=== PATIENT | female | born 1965 | race African-American/Black ===

== ENCOUNTER 2018-01-24 12:41 | Observation (INO) | payer MEDICARE, OTHER ==
[2018-01-24] MEDS ORDERED: ASPIRIN 81 MG PO STA (13:09)
[2018-01-24] MEDS ORDERED: NITROGLYCERIN OINT 1 INCH/GM PACKET TOPICAL STA (13:09)
[2018-01-24] MEDS ORDERED: KETOROLAC 30 MG/ML 1 ML VIAL IVP STA (13:09)
--- NOTE | 2018-01-24 13:20 | ED ---
Chest Pain HPI - General Chief Complaint: Chest Pain Stated Complaint: chest pain Time Seen by Provider: 01/24/18 12:54 Source: patient, EMS Mode of arrival: EMS Limitations: no limitations - History of Present Illness Initial Comments: This 52-year-old -[place] female presents with the complaints some chest pain. This is present to her left chest and radiates into her left neck and down her left arm. It started yesterday and is described as a pressure and is associated with some shortness of breath. She states that it is somewhat worse with deep inspiration and chest movements. She denies any history of previous pulmonary her Cardiologic problems. She's never had a stress test or heart catheterization. She denies any leg pain or swelling or history of DVT or PE. She does relate a history of fibromyalgia that some remission, depression that is improved, and arthritis. She is requesting something for pain. She denies any other complaints or modifying factors. - Related Data Home Medications Medication Instructions Recorded Confirmed Cholecalciferol [Vitamin D3] 1,000 unit PO DAILY 01/24/18 01/24/18 Cyanocobalamin (Vitamin B-12) 1,000 mcg PO DAILY 01/24/18 01/24/18 [Vitamin B-12] DULoxetine HCL [Cymbalta] 60 mg PO BID 01/24/18 01/24/18 FLUoxetine HCL [PROzac] 20 mg PO DAILY 01/24/18 01/24/18 Gabapentin [Neurontin] 300 mg PO QAM 01/24/18 01/24/18 Gabapentin [Neurontin] 600 mg PO HS 01/24/18 01/24/18 [place]-3 Fatty Acids/Fish Oil [Fish 1 cap PO DAILY 01/24/18 01/24/18 Oil 1,000 mg Softgel] Pyridoxine [Vitamin B-6] 50 mg PO DAILY 01/24/18 01/24/18 amLODIPine [Norvasc] 10 mg PO DAILY 01/24/18 01/24/18 risperiDONE [RisperDAL] 0.5 mg PO HS 01/24/18 01/24/18 traZODone HCL 300 mg PO HS 01/24/18 01/24/18 Allergies Allergy/AdvReac Type Severity Reaction Status Date / Time No Known Allergies Allergy Verified 01/24/18 14:00 Review of Systems ROS Statement: Those systems with pertinent positive or pertinent negative responses have been documented in the HPI. ROS Other: All systems not noted in ROS Statement are negative. Past Medical History Past Medical History: Fibromyalgia, Osteoarthritis (OA) Additional Past Medical History / Comment(s): degenerative disc disease History of Any Multi-Drug Resistant Organisms: None Reported Past Surgical History: Appendectomy, Hernia Repair, Hysterectomy Past Psychological History: Depression Smoking Status: Current every day smoker Past Alcohol Use History: None Reported Past Drug Use History: None Reported General Exam - General Exam Comments Initial Comments: GENERAL: The patient is well nourished and well hydrated. VITAL SIGNS: Heart rate, blood pressure, respiratory rate reviewed as recorded in nurse's notes. EYES: Pupils are round and reactive. Extraocular movements are intact. No conjunctival / lid redness or swelling. ENT: No external evidence of injury, swelling, or ecchymosis. Airway is patent. Throat is clear. NECK: Nontender. No swelling or evidence of injury. No subcutaneous emphysema. Trachea is midline. No thyroid mass. HEART: Regular rate and rhythm. Good peripheral pulses. LUNGS/CHEST: Breath sounds clear and equal bilaterally. No rales, rhonchi, or wheezes. No ecchymosis, subcutaneous emphysema, or tenderness. ABDOMEN: Abdomen soft without tenderness. No palpable masses or organomegaly. No peritoneal signs. No abdominal wall swelling or ecchymosis. EXTREMITIES: No extremity tenderness. Normal muscle tone and function. No thoracolumbar tenderness. NEUROLOGIC: Sensation is grossly intact. Cranial nerve exam reveals face is symmetrical, tongue is midline, speech is clear. SKIN: No abrasions or ecchymosis is noted. No induration or masses noted. PSYCHIATRIC: Alert and oriented. Appropriate behavior and judgment. Limitations: no limitations Course Vital Signs 01/24/18 01/24/18 01/24/18 12:52 13:15 13:33 Temperature 97.8 F Pulse Rate 80 77 Respiratory 20 18 20 Rate Blood Pressure 124/80 121/80 O2 Sat by Pulse 100 99 Oximetry Chest Pain MDM - MDM The patient was seen and examined. All diagnostics were reviewed. An EKG was done and this shows a normal sinus rhythm at a rate of 81. There is some slight T-wave inversions in V1 and V2. There is no ST elevation. The HI intervals 138, QRS duration is 92, and the QTC intervals 441. An aspirin is given as well as some Nitropaste. Toradol is ordered intravenously. She is placed on a title vehicle service attendant and is given some oxygen. IV is initiated. The laboratory was all essentially within normal limits. The chest x-ray did not show any acute process. She is in no distress on recheck. Is felt as though she would benefit from admission to the hospital to rule out the possibility of acute coronary syndrome. She is agreeable. Case is discussed with internal medicine and they are agreeable with admission. Disposition Clinical Impression: Unstable angina pectoris, Chest pain, Dyspnea Disposition: ADMITTED IP TO THIS HOSP Condition: Fair Time of Disposition: 15:14 Decision Date: 01/24/18 Decision Time: 15:14
--- NOTE | 2018-01-24 13:43 | XR ---
EXAMINATION TYPE: XR chest 2V DATE OF EXAM: 01/24/2018 COMPARISON: NONE TECHNIQUE: PA and lateral views submitted. HISTORY: Chest pain FINDINGS: The lungs are clear and there is no pneumothorax, pleural effusion, or focal pneumonia. Biapical pl eural thickening. No overt failure. IMPRESSION: 1. No acute process.
[2018-01-24] MEDS ORDERED: ONDANSETRON 4 MG/2 ML VIAL IVP STA (14:01)
[2018-01-24 14:09] LABS: Basophils # (A) 0.1 k/uL (0-0.2); Basophils % (A) 1 %; Eosinophils # (A) 0.1 k/uL (0-0.7); Eosinophils % (A) 2 %; HCT 39.4 % (34.0-46.0); HGB 12.7 gm/dL (11.4-16.0); Lymphocytes # (A) 2.4 k/uL (1.0-4.8); Lymphocytes % (A) 39 %; MCH 28.9 pg (25.0-35.0); MCHC 32.1 g/dL (31.0-37.0); MCV 90.2 fL (80.0-100.0); Mean Platelet Volume 7.6; Monocytes # (A) 0.3 k/uL (0-1.0); Monocytes % (A) 5 %; Neutrophils # (A) 3.2 k/uL (1.3-7.7); Neutrophils % (A) 52 %; Platelet Count 208 k/uL (150-450); RBC 4.37 m/uL (3.80-5.40); RDW 12.5 % (11.5-15.5); WBC 6.1 k/uL (3.8-10.6)
[2018-01-24 14:22] LABS: ALT 17 U/L (9-52); AST 21 U/L (14-36); Albumin 4.4 g/dL (3.5-5.0); Alkaline Phosphatase 81 U/L (38-126); Anion Gap 11 mmol/L; Blood Urea Nitrogen 13 mg/dL (7-17); Calcium 9.5 mg/dL (8.4-10.2); Carbon Dioxide 26 mmol/L (22-30); Chloride 104 mmol/L (98-107); Glucose 82 mg/dL (74-99); Magnesium 2.1 mg/dL (1.6-2.3); Potassium 4.4 mmol/L (3.5-5.1); Sodium 141 mmol/L (137-145); Total Bilirubin 0.3 mg/dL (0.2-1.3); Total Protein 7.5 g/dL (6.3-8.2)
[2018-01-24 14:25] LABS: D-Dimer 0.18 mg/L FEU (<0.60)
[2018-01-24 14:30] LABS: INR 1.1 (<1.2); Partial Thromboplastin Time 25.6 sec (22.0-30.0); Prothrombin Time 10.8 sec (9.0-12.0)
[2018-01-24 14:50] LABS: Creatine Kinase MB 0.4 ng/mL (0.0-2.4); Troponin I <0.012 ng/mL (0.000-0.034)
[2018-01-24 14:58] LABS: Creatine Kinase 94 U/L (30-135)
[2018-01-24] MEDS ORDERED: NITROGLYCERIN SL TABS 0.4 MG TAB SUBLINGUAL PRN (15:19)
[2018-01-24] MEDS: ACETAMINOPHEN TAB 325 MG TAB PO PRN (16:34)
--- NOTE | 2018-01-24 18:38 | ECHOF ---
Referral Reason:cp MEASUREMENTS -------- HEIGHT: 172.7 cm WEIGHT: 70.3 kg BP: 107/68 RVIDd: 2.3 cm (< 3.3) IVSd: 1.2 cm (0.6 - 1.1) LVIDd: 4.2 cm (3.9 - 5.3) LVPWd: 1.0 cm (0.6 - 1.1) IVSs: 1.5 cm LVIDs: 2.8 cm LVPWs: 1.4 cm LAESV Index (A-L): 18.64 ml/m Ao Diam: 2.4 cm (2.0 - 3.7) AV Cusp: 1.5 cm (1.5 - 2.6) LA Diam: 2.8 cm (2.7 - 3.8) EPSS: 0.8 cm MV E Zeb: 0.90 m/s MV DecT: 257 ms MV A Zeb: 0.78 m/s MV E/A Ratio: 1.16 RAP: 5.00 mmHg RVSP: 11.52 mmHg MV EF SLOPE: 118.69 mm/s (70 - 150) MV EXCURSION: 1.24 cm (> 18.000) FINDINGS -------- Sinus rhythm. This was a technically good study. The left ventricular size is normal. Left ventricular wall thickness is normal. Overall left vent ricular systolic function is normal with, an EF between 55 - 60 %. The right ventricle is normal in size and function. Normal LA size by volume 22+/-6 ml/m2. The right atrium is normal in size. The aortic valve is trileaflet, and appears structurally normal. No aortic stenosis or regurgitation. The mitral valve is normal. There is trace to mild mitral regurgitation. Trace tricuspid regurgitation present. Right ventricular systolic pressure is normal at < 35 mmHg. There is no evidence of pulmonary hypertension. Trace/mild (physiologic) pulmonic regurgitation. The aortic root size is normal. Normal inferior vena cava with normal inspiratory collapse consistent with estimated right atrial pre ssure of 5 mmHg. The pericardium is normal. There is no pericardial effusion. CONCLUSIONS -------- 1. Sinus rhythm. 2. This was a technically good study. 3. The left ventricular size is normal. 4. Left ventricular wall thickness is normal. 5. Overall left ventricular systolic function is normal with, an EF between 55 - 60 %. 6. Normal LA size by volume 22+/-6 ml/m2. 7. The aortic valve is trileaflet, and appears structurally normal. No aortic stenosis or regurgitati on. 8. There is trace to mild mitral regurgitation. 9. Trace tricuspid regurgitation present. 10. Right ventricular systolic pressure is normal at < 35 mmHg. 11. There is no evidence of pulmonary hypertension. 12. Trace/mild (physiologic) pulmonic regurgitation. 13. The aortic root size is normal. 14. There is no pericardial effusion. [employer]: Abraham Billy RDCS
[2018-01-24] MEDS ORDERED: ONDANSETRON 4 MG/2 ML VIAL IVP PRN (19:23)
[2018-01-24 20:16] LABS: Creatine Kinase 82 U/L (30-135)
[2018-01-24 20:29] LABS: Creatine Kinase MB 0.3 ng/mL (0.0-2.4); Troponin I <0.012 ng/mL (0.000-0.034)
[2018-01-24] MEDS: DULoxetine HCL 60 MG CAPSULE.DR PO SCH (20:45)
[2018-01-24] MEDS: METOPROLOL TARTRATE 25 MG TAB PO SCH (20:45)
[2018-01-24] MEDS ORDERED: traZODone HCL 100 MG TAB PO SCH (21:00)
[2018-01-24] MEDS ORDERED: risperiDONE 0.5 MG TAB PO SCH (21:00)
[2018-01-24] MEDS ORDERED: GABAPENTIN 300 MG CAP PO SCH (21:00)
[2018-01-24 23:26] LABS: Glucose,Whole Blood 98 mg/dL (75-99)
[2018-01-25 02:18] LABS: Cholesterol 238 mg/dL (<200); HDL Cholesterol 47 mg/dL (40-60); LDL Cholesterol,Calculated 180 mg/dL (0-99); Triglycerides 56 mg/dL (<150)
[2018-01-25 02:41] LABS: Creatine Kinase 71 U/L (30-135)
[2018-01-25 02:50] LABS: Creatine Kinase MB <0.2 ng/mL (0.0-2.4)
[2018-01-25 02:54] LABS: Troponin I <0.012 ng/mL (0.000-0.034)
[2018-01-25] MEDS ORDERED: REGADENOSON 0.4 MG/5 ML SYRINGE IV ONE (08:21)
[2018-01-25] MEDS ORDERED: AMINOPHYLLINE 500 MG/20 ML VIAL IV PRN (08:21)
[2018-01-25 08:54] VITALS: RESP 18
[2018-01-25] MEDS ORDERED: FLUoxetine HCL 20 MG CAP PO SCH (09:00)
[2018-01-25] MEDS ORDERED: ASPIRIN 325 MG TAB PO SCH (09:00)
[2018-01-25] MEDS ORDERED: amLODIPine 10 MG TAB PO SCH (09:00)
[2018-01-25] MEDS ORDERED: GABAPENTIN 300 MG CAP PO SCH (09:00)
[2018-01-25] MEDS ORDERED: NON-FORMULARY DRUG (Omega-3 Fatty Acids/Fish Oil [Fish Oil 1,000 Mg Softgel] 1 CAP) PO SCH (09:00)
[2018-01-25] MEDS ORDERED: CHOLECALCIFEROL 1,000 UNIT TAB PO SCH (09:00)
[2018-01-25] MEDS ORDERED: PYRIDOXINE 50 MG TAB PO SCH (09:00)
[2018-01-25] MEDS ORDERED: ENOXAPARIN 40 MG/0.4 ML SYRINGE SQ SCH (09:00)
[2018-01-25] MEDS ORDERED: CYANOCOBALAMIN 500 MCG TAB PO SCH (09:00)
[2018-01-25] MEDS ORDERED: ASPIRIN 81 MG PO SCH (09:00)
[2018-01-25] MEDS ORDERED: ATORVASTATIN 40 MG TAB PO SCH (09:45)
[2018-01-25] MEDS ORDERED: AMINOPHYLLINE 250 MG/10 ML VIAL IV ONE (10:10)
--- NOTE | 2018-01-25 10:32 | P.CRDCN ---
History of Present Illness Consult date: 01/25/18 Consult reason: chest pain History of present illness: Mrs. Sung is a pleasant 52-year-old female past medical history significant for hypertension, fibromyalgia and chronic tobacco use. She denies history of coronary artery disease and has never seen a showroom executive director for any reason. We have been asked to see her in consultation for complaints of chest pain. She states she has been trying to quit smoking over the previous month and every time she does smoke she gets a pain/tightness in her chest. The pains are typically mild and manageable and go away on their own with no specific alleviating factor and no associated symptoms. However, yesterday the pain was much more intense. It was located in the precordial region and radiated into her left shoulder and down into the left arm. The pain has been pretty constant since yesterday with no specific alleviating factors. Deep inspiration and coughing makes the pain worse. She has mild associated shortness of breath as well. Denies symptoms of dizziness, palpitations, nausea , vomiting or diaphoresis. EKG on arrival reveals sinus mechanism with nonspecific T-wave abnormality and incomplete right bundle branch block. There is no old for comparison. Telemetry tracings have been unremarkable. Chest x-ray is negative for an acute cardiopulmonary process. Echocardiogram performed yesterday reveals preserved left ventricular systolic function with ejection fraction 55-60%. Laboratory data reviewed, hemoglobin 12.7, platelets 208, d-dimer 0.18, sodium 141, potassium 4.4, magnesium 2.1, creatinine 0.8, cardiac enzymes negative 3, LDL 180, HDL 47, total cholesterol 238. Current cardiac medications include Norvasc 10 mg daily. Review of Systems At the time of my exam: CONSTITUTIONAL: Denies fever. Denies chills. EYES: Denies blurred vision. Denies vision changes. Denies eye pain. EARS, NOSE, MOUTH & THROAT: Denies headache. Denies sore throat. Denies ear pain. CARDIOVASCULAR: Complains of constant precordial chest pain. Denies shortness of breath. Denies orthopnea. Denies PND. Denies palpitations. RESPIRATORY: Denies cough. GASTROINTESTINAL: Denies abdominal pain. Denies diarrhea. Denies constipation. Denies nausea. Denies vomiting. MUSCULOSKELETAL: Denies myalgias. INTEGUMENTARY: Denies pruitis. Denies rash. NEUROLOGIC: Denies numbness. Denies tingling. Denies weakness. PSYCHIATRIC: Denies anxiety. Denies depression. ENDOCRINE: Denies fatigue. Denies weight change. Denies polydipsia. Denies polyurina. GENITOURINARY: Denies burning, hematuria or urgency with micturation. HEMATOLOGIC: Denies history of anemia. Denies bleeding. Past Medical History Past Medical History: Fibromyalgia, Hypertension, Osteoarthritis (OA) Additional Past Medical History / Comment(s): degenerative disc disease. "told years ago i have emphysema", kidney stone in past(passed it on her own),past hx uterine fibroids. History of Any Multi-Drug Resistant Organisms: None Reported Past Surgical History: Appendectomy, Hernia Repair, Hysterectomy Additional Past Surgical History / Comment(s): total hysterectomy, navel hernia repair Past Anesthesia/Blood Transfusion Reactions: No Reported Reaction Smoking Status: Current every day smoker - Past Family History Mother Family Medical History: Cancer Additional Family Medical History / Comment(s): cervical cancer Father Family Medical History: No Reported History Additional Family Medical History / Comment(s): "he was killed" Medications and Allergies Home Medications Medication Instructions Recorded Confirmed Type Cholecalciferol [Vitamin D3] 1,000 unit PO DAILY 01/24/18 01/24/18 History Cyanocobalamin (Vitamin B-12) 1,000 mcg PO DAILY 01/24/18 01/24/18 History [Vitamin B-12] DULoxetine HCL [Cymbalta] 60 mg PO BID 01/24/18 01/24/18 History FLUoxetine HCL [PROzac] 20 mg PO DAILY 01/24/18 01/24/18 History Gabapentin [Neurontin] 300 mg PO QAM 01/24/18 01/24/18 History Gabapentin [Neurontin] 600 mg PO HS 01/24/18 01/24/18 History [place]-3 Fatty Acids/Fish Oil [Fish 1 cap PO DAILY 01/24/18 01/24/18 History Oil 1,000 mg Softgel] Pyridoxine [Vitamin B-6] 50 mg PO DAILY 01/24/18 01/24/18 History amLODIPine [Norvasc] 10 mg PO DAILY 01/24/18 01/24/18 History risperiDONE [RisperDAL] 0.5 mg PO HS 01/24/18 01/24/18 History traZODone HCL 300 mg PO HS 01/24/18 01/24/18 History Allergies Allergy/AdvReac Type Severity Reaction Status Date / Time No Known Allergies Allergy Verified 01/24/18 14:00 Physical Exam Vitals: Vital Signs Temp Pulse Pulse Resp BP BP Pulse Ox 01/25/18 04:00 72 16 01/25/18 03:36 98.0 F 72 16 93/61 96 01/25/18 00:00 98.3 F 67 16 89/58 96 01/24/18 20:00 16 01/24/18 19:49 98.2 F 77 16 106/57 95 01/24/18 16:26 98.1 F 77 18 107/68 96 01/24/18 15:51 98.0 F 85 18 107/65 98 01/24/18 13:33 77 20 121/80 99 01/24/18 13:15 18 01/24/18 12:52 97.8 F 80 20 124/80 100 Intake and Output 01/24/18 01/25/18 01/25/18 22:59 06:59 14:59 Other: # Voids 1 Weight 71 kg Blood pressure 111/63 heart rate 59 afebrile maintaining oxygen saturation on room air GENERAL: This is a 52-year-old -[place] female in no apparent distress at the time of my examination. HEENT: Head is atraumatic, normocephalic. Pupils are equal, round. Sclerae anicteric. Conjunctivae are clear. Mucous membranes of the mouth are moist. Neck is supple. There is no jugular venous distention. No carotid bruit is heard. LUNGS: Clear to auscultation no wheezes, rales or rhonchi. No chest wall tenderness is noted on palpation or with deep breathing. HEART: Regular rate and rhythm without murmurs, rubs or gallops. S1 and S2 heard. ABDOMEN: Soft, nontender. Bowel sounds are heard. No organomegaly noted. EXTREMITIES: No evidence of peripheral edema and no calf tenderness noted. VASCULAR: Radial and dorsalis pedis pulses palpated, no evidence of clubbing. NEUROLOGIC: Patient is awake, alert and oriented x3. Results 01/24/18 13:55 01/24/18 13:55 Cardiac Enzymes 01/24/18 01/24/18 01/24/18 Range/Units 13:55 13:55 19:25 AST 21 (14-36) U/L CK-MB (CK-2) 0.4 0.3 (0.0-2.4) ng/mL Troponin I <0.012 <0.012 (0.000-0.034) ng/mL 01/25/18 Range/Units 01:41 AST (14-36) U/L CK-MB (CK-2) <0.2 (0.0-2.4) ng/mL Troponin I <0.012 (0.000-0.034) ng/mL Coagulation 01/24/18 Range/Units 13:55 PT 10.8 (9.0-12.0) sec APTT 25.6 (22.0-30.0) sec Lipids 01/25/18 Range/Units 01:41 Triglycerides 56 (<150) mg/dL Cholesterol 238 H (<200) mg/dL HDL Cholesterol 47 (40-60) mg/dL CBC 01/24/18 Range/Units 13:55 WBC 6.1 (3.8-10.6) k/uL RBC 4.37 (3.80-5.40) m/uL Hgb 12.7 (11.4-16.0) gm/dL Hct 39.4 (34.0-46.0) % Plt Count 208 (150-450) k/uL Comprehensive Metabolic Panel 01/24/18 Range/Units 13:55 Sodium 141 (137-145) mmol/L Potassium 4.4 (3.5-5.1) mmol/L Chloride 104 (98-107) mmol/L Carbon Dioxide 26 (22-30) mmol/L BUN 13 (7-17) mg/dL Creatinine 0.80 (0.52-1.04) mg/dL Glucose 82 (74-99) mg/dL Calcium 9.5 (8.4-10.2) mg/dL AST 21 (14-36) U/L ALT 17 (9-52) U/L Alkaline Phosphatase 81 (38-126) U/L Total Protein 7.5 (6.3-8.2) g/dL Albumin 4.4 (3.5-5.0) g/dL Current Medications Generic Name Dose Route Start Last Admin Trade Name Freq PRN Reason Stop Dose Admin Acetaminophen 650 mg 01/24/18 15:19 01/24/18 16:34 Tylenol Tab PO 650 mg Q4HR PRN Administration Pain Aminophylline 100 mg 01/25/18 08:21 Aminophylline IV 01/25/18 23:59 ONCE PRN Patient Response Aspirin 81 mg 01/25/18 09:00 Aspirin PO DAILY [facility] Cholecalciferol 1,000 unit 01/25/18 09:00 Vitamin D3 PO DAILY [facility] Cyanocobalamin 1,000 mcg 01/25/18 09:00 Vitamin B-12 PO DAILY [facility] Duloxetine HCl 60 mg 01/24/18 21:00 01/24/18 20:45 Cymbalta PO 60 mg BID RAFAEL Administration Enoxaparin Sodium 40 mg 01/25/18 09:00 Lovenox SQ DAILY [facility] Fluoxetine HCl 20 mg 01/25/18 09:00 Prozac PO DAILY [facility] Gabapentin 300 mg 01/25/18 09:00 Neurontin PO QAM [facility] Gabapentin 600 mg 01/24/18 21:00 01/24/18 20:45 Neurontin PO 600 mg HS [facility] Administration Metoprolol Tartrate 25 mg 01/24/18 21:00 01/24/18 20:45 Lopressor PO 25 mg BID [facility] Administration Nitroglycerin 0.4 mg 01/24/18 15:19 Nitrostat SUBLINGUAL Q5M PRN Chest Pain Ondansetron HCl 4 mg 01/24/18 19:23 01/24/18 20:43 Zofran IVP 4 mg Q6HR PRN Administration Nausea And Vomiting Pyridoxine HCl 50 mg 01/25/18 09:00 Vitamin B-6 PO DAILY [facility] Risperidone 0.5 mg 01/24/18 21:00 01/24/18 20:44 Risperdal PO 0.5 mg HS [facility] Administration Trazodone HCl 300 mg 01/24/18 21:00 01/24/18 20:44 Desyrel PO 300 mg HS [facility] Administration Intake and Output 01/24/18 01/25/18 01/25/18 22:59 06:59 14:59 Other: # Voids 1 Weight 71 kg 01/24/18 13:55 01/24/18 13:55 Assessment and Plan Assessment: ASSESSMENT 1. Chest pain, atypical. An acute coronary event has been ruled out with negative cardiac enzymes. 2. Hypertension 3. Dyslipidemia, new diagnosis 4. Chronic tobacco use PLAN 2D echocardiogram has been reviewed. Perform Lexiscan stress test to evaluate for reversible cardiac ischemia. Add small dose of aspirin and atorvastatin 40 mg daily to daily regimen. Smoking cessation has been recommended. Further recommendations based on diagnostic test findings. If stress test is negative she is stable from a cardiac perspective to follow-up with Dr. Goetz in 2-3 weeks. Thank you kindly for this consultation. Nurse Practitioner note has been reviewed, I agree with a documented findings and plan of care. Patient was seen and examined.
[2018-01-25] MEDS: METOPROLOL TARTRATE 25 MG TAB PO SCH (10:56)
[2018-01-25] MEDS: DULoxetine HCL 60 MG CAPSULE.DR PO SCH (10:56)
[2018-01-25] MEDS: ACETAMINOPHEN TAB 325 MG TAB PO PRN (10:59)
--- NOTE | 2018-01-25 11:22 | NM ---
EXAMINATION TYPE: NM stress lexiscan cardiolite DATE OF EXAM: 01/25/2018 COMPARISON: NONE HISTORY: Pain TECHNIQUE: After the intravenous administration of 10.3 mCi Tc 99m Sestamibi - Cardiolite resting SP ECT images acquired 45 minutes post injection. The patient received 0.4mg Lexiscan, 24 mCi Tc 99m Sestamibi - Stress images obtained 30 minutes post injection FINDINGS: Review of stress and rest SPECT images demonstrates no distinct perfusion abnormality. Gated analysi s shows normal wall motion with an estimated left ventricular ejection fraction of 55 %. IMPRESSION: No scintigraphic evidence for reversible ischemia.
[2018-01-25 11:55] VITALS: BP 104/63; PULSE 67; TEMP 97.8
--- NOTE | 2018-01-25 12:04 | EST ---
EXERCISE STRESS AGE: 52 SEX: F HT: 5'8" WT: 156 PROTOCOL: Lexiscan Cardiolite Stress Test HEART RATE REST: 65 BLOOD PRESSURE REST: 122/68 MAXIMUM HEART RATE ACHIEVED: 117 MAXIMUM BLOOD PRESSURE: 122/68 85% MPHR: 143 100% MPHR: 160 INDICATIONS: Chest pain. CLINICAL INFORMATION: Baseline EKG revealed normal sinus rhythm without significant ST-T changes. With Lexiscan administration, patient had some uncomfortable feeling, nausea and required aminophylline. EKG did not reveal any ST-segment change. Heart rate changed from 65 to 117 beats per minute. Blood pressure changed from 122/68 to 102/74, and came back to baseline. By EKG criteria this is an unremarkable Lexiscan stress test. The nuclear scan results which are more pertinent, will be reported by the radiologist. [place] / [place]: [id number] /
--- NOTE | 2018-01-25 14:40 | P.HPIM ---
History of Present Illness H&P Date: 01/25/18 Chief Complaint: Chest pain This is a 52-year-old female with a known past medical history of 5 myalgia, osteoarthritis, degenerative disc disease, depression and nicotine dependence. She presents to the emergency room with complaints of chest pain on the left side of her chest and left arm with shortness of breath. She's had symptoms for a few days. Troponins were negative 3 sets d-dimer 0.18, EKG normal sinus rhythm with incomplete right bundle branch block and nonspecific T-wave abnormality. Chest x-rays negative. Echo shows an EF of 55-60%. Cholesterol 238 and LDL 180. Patient seen evaluated by cardiology. Patient underwent stress test this morning which was negative. Cardiology has cleared her for discharge. He'll follow-up with her in the office in 2 weeks. They have added aspirin and Lipitor to her regimen. Patient is still complaining of chest discomfort reporting it as muscle skeletal pain and requesting Flexeril. This will be given to her at discharge. Also patient is been informed that if she continues to have chest pain she may benefit from having heart catheterization. Patient will be following up with cardiology in 2 weeks Review of Systems Please refer to HPI otherwise unremarkable Past Medical History Past Medical History: Fibromyalgia, Hypertension, Osteoarthritis (OA) Additional Past Medical History / Comment(s): degenerative disc disease. "told years ago i have emphysema", kidney stone in past(passed it on her own),past hx uterine fibroids. History of Any Multi-Drug Resistant Organisms: None Reported Past Surgical History: Appendectomy, Hernia Repair, Hysterectomy Additional Past Surgical History / Comment(s): total hysterectomy, navel hernia repair Past Anesthesia/Blood Transfusion Reactions: No Reported Reaction Smoking Status: Current every day smoker - Past Family History Mother Family Medical History: Cancer Additional Family Medical History / Comment(s): cervical cancer Father Family Medical History: No Reported History Additional Family Medical History / Comment(s): "he was killed" Medications and Allergies Home Medications Medication Instructions Recorded Confirmed Type Cholecalciferol [Vitamin D3] 1,000 unit PO DAILY 01/24/18 01/24/18 History Cyanocobalamin (Vitamin B-12) 1,000 mcg PO DAILY 01/24/18 01/24/18 History [Vitamin B-12] DULoxetine HCL [Cymbalta] 60 mg PO BID 01/24/18 01/24/18 History FLUoxetine HCL [PROzac] 20 mg PO DAILY 01/24/18 01/24/18 History Gabapentin [Neurontin] 300 mg PO QAM 01/24/18 01/24/18 History Gabapentin [Neurontin] 600 mg PO HS 01/24/18 01/24/18 History [place]-3 Fatty Acids/Fish Oil [Fish 1 cap PO DAILY 01/24/18 01/24/18 History Oil 1,000 mg Softgel] Pyridoxine [Vitamin B-6] 50 mg PO DAILY 01/24/18 01/24/18 History amLODIPine [Norvasc] 10 mg PO DAILY 01/24/18 01/24/18 History risperiDONE [RisperDAL] 0.5 mg PO HS 01/24/18 01/24/18 History traZODone HCL 300 mg PO HS 01/24/18 01/24/18 History Allergies Allergy/AdvReac Type Severity Reaction Status Date / Time No Known Allergies Allergy Verified 01/24/18 14:00 Physical Exam Vitals: Vital Signs Temp Pulse Pulse Resp BP BP Pulse Ox 01/25/18 11:53 97.8 F 67 18 104/63 95 01/25/18 08:00 98.5 F 59 L 18 111/63 100 01/25/18 04:00 72 16 01/25/18 03:36 98.0 F 72 16 93/61 96 01/25/18 00:00 98.3 F 67 16 89/58 96 01/24/18 20:00 16 01/24/18 19:49 98.2 F 77 16 106/57 95 01/24/18 16:26 98.1 F 77 18 107/68 96 01/24/18 15:51 98.0 F 85 18 107/65 98 Intake and Output 01/24/18 01/25/18 01/25/18 22:59 06:59 14:59 Intake Total 420 Balance 420 Intake: Oral 420 Other: # Voids 1 Weight 71 kg Head normocephalic Neck supple Lungs clear to auscultation bilaterally no wheezing or crackles Heart regular rate and rhythm S1-S2, no rub or gallop Abdomen is soft nontender nondistended positive bowel sounds no hepatosplenomegaly Extremities no edema Neuro alert and orientated to 3 Results CBC & Chem 7: 01/24/18 13:55 01/24/18 13:55 Labs: Abnormal Lab Results - Last 24 Hours (Table) 01/25/18 Range/Units 01:41 Cholesterol 238 H (<200) mg/dL LDL Cholesterol, Calc 180 H (0-99) mg/dL Thrombosis Risk Factor Assmnt - Choose All That Apply Any of the Below Risk Factors Present?: Yes Each Factor Represents 1 point: Age 41-60 years Other Risk Factors: No Other congenital or acquired thrombophilia - If yes, enter type in comment: No Thrombosis Risk Factor Assessment Total Risk Factor Score: 1 Thrombosis Risk Factor Assessment Level: Low Risk Assessment and Plan Assessment: 1. Chest pain: Atypical. Cardiac enzymes are negative 3. Acute coronary event has been ruled out. EKG normal sinus rhythm with incomplete right bundle branch block. Chest x-ray negative. D-dimer within normal range. Echo shows an EF of 55-60%. Stress test negative. Patient cleared to cardiology for discharge. Patient's chest pain may be musculoskeletal. Flexeril be added 2. Dyslipidemia, new diagnosis: Cardiology has plus patient on Lipitor 3. Nicotine dependence discussed importance of smoking cessation 4. Essential hypertension: Patient has had lower blood pressures. Norvasc discontinued during this admission 5. Fibromyalgia 6. History of degenerative disc disease Time with Patient: Greater than 30 (Time.I performed an examination of the patient and discussed their management with the physician Manager Estate. I have reviewed the Physician Manager Estate's notes and agree with the documented findings and plan of care)
--- NOTE | 2018-01-25 14:52 | P.DS ---
Providers Date of admission: 01/24/18 15:19 Expected date of discharge: 01/25/18 Attending physician: Mook Sheth Consults: 01/24/18 15:19 Consult Physician Urgent Consulting Provider: Wendy Worthington Consult Reason/Comments: cp Do you want consulting provider notified?: Yes [facility] Course: Discharge diagnosis 1. Chest pain: Atypical. Cardiac enzymes are negative 3. Acute coronary event has been ruled out. EKG normal sinus rhythm with incomplete right bundle branch block. Chest x-ray negative. D-dimer within normal range. Echo shows an EF of 55-60%. Stress test negative. Patient cleared to cardiology for discharge. Patient's chest pain may be musculoskeletal. Flexeril be added 2. Dyslipidemia, new diagnosis: Cardiology has plus patient on Lipitor 3. Nicotine dependence discussed importance of smoking cessation 4. Essential hypertension: Patient has had lower blood pressures. Discontinue the metoprolol that started in the ER. Patient can continue her Norvasc 5. Fibromyalgia 6. History of degenerative disc disease Hospital course This is a 52-year-old female with a known past medical history of 5 myalgia, osteoarthritis, degenerative disc disease, depression and nicotine dependence. She presents to the emergency room with complaints of chest pain on the left side of her chest and left arm with shortness of breath. She's had symptoms for a few days. Troponins were negative 3 sets d-dimer 0.18, EKG normal sinus rhythm with incomplete right bundle branch block and nonspecific T-wave abnormality. Chest x-rays negative. Echo shows an EF of 55-60%. Cholesterol 238 and LDL 180. Patient seen evaluated by cardiology. Patient underwent stress test this morning which was negative. Cardiology has cleared her for discharge. He'll follow-up with her in the office in 2 weeks. They have added aspirin and Lipitor to her regimen. Patient is still complaining of chest discomfort reporting it as muscle skeletal pain and requesting Flexeril. This will be given to her at discharge. Also patient is been informed that if she continues to have chest pain she may benefit from having heart catheterization. Patient will be following up with cardiology in 2 weeks. Follow-up with PCP in 1 week. Also note the patient had some hypotension during this admission. She was started on a beta raghavendra in the emergency room. The beta raghavendra will be discontinued. We will continue with her home dose of Norvasc. This was discussed with cardiology nurse practitioner to Dulce Maria Patient has been cleared by cardiology for discharge. She is medically stable for discharge. I performed an examination of the patient and discussed their management with the physician Gastroenterology Professor. I have reviewed the Physician Gastroenterology Professor's notes and agree with the documented findings and plan of care Patient Condition at Discharge: Stable Plan - Discharge Summary Discharge Rx Participant: Yes New Discharge Prescriptions: New Aspirin 81 mg PO DAILY #30 tab Atorvastatin [Lipitor] 40 mg PO DAILY #30 tab Cyclobenzaprine [Flexeril] 10 mg PO BID PRN #14 tab PRN Reason: Muscle Spasm Continue risperiDONE [RisperDAL] 0.5 mg PO HS [place]-3 Fatty Acids/Fish Oil [Fish Oil 1,000 mg Softgel] 1 cap PO DAILY Cholecalciferol [Vitamin D3] 1,000 unit PO DAILY Pyridoxine [Vitamin B-6] 50 mg PO DAILY Gabapentin [Neurontin] 300 mg PO QAM Gabapentin [Neurontin] 600 mg PO HS DULoxetine HCL [Cymbalta] 60 mg PO BID Cyanocobalamin (Vitamin B-12) [Vitamin B-12] 1,000 mcg PO DAILY amLODIPine [Norvasc] 10 mg PO DAILY FLUoxetine HCL [PROzac] 20 mg PO DAILY traZODone HCL 300 mg PO HS Discharge Medication List Cholecalciferol [Vitamin D3] 1,000 unit PO DAILY 01/24/18 [History] Cyanocobalamin (Vitamin B-12) [Vitamin B-12] 1,000 mcg PO DAILY 01/24/18 [ History] DULoxetine HCL [Cymbalta] 60 mg PO BID 01/24/18 [History] FLUoxetine HCL [PROzac] 20 mg PO DAILY 01/24/18 [History] Gabapentin [Neurontin] 300 mg PO QAM 01/24/18 [History] Gabapentin [Neurontin] 600 mg PO HS 01/24/18 [History] [place]-3 Fatty Acids/Fish Oil [Fish Oil 1,000 mg Softgel] 1 cap PO DAILY [History] Pyridoxine [Vitamin B-6] 50 mg PO DAILY 01/24/18 [History] amLODIPine [Norvasc] 10 mg PO DAILY 01/24/18 [History] risperiDONE [RisperDAL] 0.5 mg PO HS 01/24/18 [History] traZODone HCL 300 mg PO HS 01/24/18 [History] Aspirin 81 mg PO DAILY #30 tab 01/25/18 [Rx] Atorvastatin [Lipitor] 40 mg PO DAILY #30 tab 01/25/18 [Rx] Cyclobenzaprine [Flexeril] 10 mg PO BID PRN #14 tab 01/25/18 [Rx] Follow up Appointment(s)/Referral(s): Ofe Goetz MD [STAFF PHYSICIAN] - 2 Weeks Calista Gil MD [Primary Care Provider] - 1 Week Activity/Diet/Wound Care/Special Instructions: Diet: cardiac Activity: as tolerated Discharge Disposition: HOME SELF-CARE
== END 2018-01-25 15:55 | disposition home or self-care (01) ==
LOC: EC 12:41 → 3OBS 15:19
PROVIDERS: ADMIT Internal Medicine; ATTEND Internal Medicine
DX: R07.89 Other chest pain (principal); E78.5 Hyperlipidemia, unspecified; I10 Essential (primary) hypertension; I45.10 Unspecified right bundle-branch block; M79.7 Fibromyalgia; M19.90 Unspecified osteoarthritis, unspecified site; F32.9 Major depressive disorder, single episode, unspecified; F17.200 Nicotine dependence, unspecified, uncomplicated; Z79.899 Other long term (current) drug therapy; Z80.49 Family history of malignant neoplasm of other genital organs
CPT/HCPCS: 99285 ×2; 96374 ×2; 96375 ×2; 96372; 96376; 36415; 93005; 93017; 93306; 85379; 83880; 80061; 80053; 82550 ×2; 82553 ×2; 83735; 84484 ×2; 85025; 85610; 85730; 71046; 78452; G0378 ×2; A9500; J2405; J1650; J1885; J2785; J0280

== ENCOUNTER 2019-04-07 00:06 | Emergency (ER) | payer MEDICARE, OTHER ==
[2019-04-07] MEDS ORDERED: SODIUM CHLORIDE 0.9% 1,000 ML IV ONE (00:27)
[2019-04-07 00:44] LABS: Basophils # (A) 0.1 k/uL (0-0.2); Basophils % (A) 1 %; Eosinophils # (A) 0.2 k/uL (0-0.7); Eosinophils % (A) 3 %; HCT 40.1 % (34.0-46.0); HGB 13.3 gm/dL (11.4-16.0); Lymphocytes # (A) 3.2 k/uL (1.0-4.8); Lymphocytes % (A) 44 %; MCH 30.3 pg (25.0-35.0); MCHC 33.1 g/dL (31.0-37.0); MCV 91.5 fL (80.0-100.0); Mean Platelet Volume 7.2; Monocytes # (A) 0.3 k/uL (0-1.0); Monocytes % (A) 4 %; Neutrophils # (A) 3.4 k/uL (1.3-7.7); Neutrophils % (A) 47 %; Platelet Count 222 k/uL (150-450); RBC 4.38 m/uL (3.80-5.40); RDW 14.3 % (11.5-15.5); WBC 7.3 k/uL (3.8-10.6)
[2019-04-07 00:55] LABS: Appearance,Urine Clear (Clear); Bilirubin,Urine Negative (Negative); Blood,Urine Negative (Negative); Color,Urine Yellow; Glucose,Urine (UA) Negative (Negative); Ketones,Urine Negative (Negative); Leukocyte Esterase,Urine Trace (Negative); Mucus,Urine Occasional /hpf; Nitrite,Urine Negative (Negative); Protein,Urine Negative (Negative); RBC,Urine 1 /hpf (0-5); Specific Gravity,Urine 1.013 (1.001-1.035); Squamous Epithelial Cell,Urine 3 /hpf (0-4); Urobilinogen,Urine <2.0 mg/dL (<2.0)
[2019-04-07 00:57] LABS: Albumin 4.4 g/dL (3.5-5.0); Calcium 9.6 mg/dL (8.4-10.2); Potassium 3.9 mmol/L (3.5-5.1); Total Bilirubin 0.2 mg/dL (0.2-1.3); Total Protein 7.2 g/dL (6.3-8.2)
--- NOTE | 2019-04-07 02:00 | XR ---
EXAM: XR Chest, 2 Views CLINICAL HISTORY: Cough, fever. TECHNIQUE: Frontal and lateral views of the chest. COMPARISON: CXR dated 01/24/2018. FINDINGS: Lungs: No focal consolidation. No evidence of pulmonary edema. Pleural space: No pleural effusion. No pneumothorax. Heart: Unremarkable. No cardiomegaly. Mediastinum: Unremarkable. Bones/joints: Minimal curvature of spine. Osseous structures otherwise unremarkable. IMPRESSION: No radiographic evidence of acute chest abnormality.
--- NOTE | 2019-04-07 02:09 | ED ---
General Adult HPI - General Chief complaint: Dizziness Stated complaint: Dizziness, nausea Time Seen by Provider: 04/07/19 00:27 Source: patient Mode of arrival: ambulatory Limitations: no limitations - History of Present Illness Initial comments: Janae is a 53-year-old female who presents to the emergency department today for evaluation of generalized malaise. Patient reports that she was diagnosed with pneumonia a couple of weeks ago and was given steroids and medications however she was worried that they would interact with her psychotropic medi cations so she didn't take the steroids and took the antibiotics probably 3 days. Patient reports that she felt better for a while but over the past few days she's been feeling fatigued. She says she feels somewhat dizzy at times somewhat lightheaded. She denies any specific pain, chest pain cough or shortness of breath. Patient does report subjective fevers, generalized malaise, decreased appetite. -: week(s) - Related Data Home Medications Medication Instructions Recorded Confirmed Cholecalciferol [Vitamin D3 (25 1,000 unit PO DAILY 01/24/18 01/24/18 Mcg = 1000 Iu)] Cyanocobalamin (Vitamin B-12) 1,000 mcg PO DAILY 01/24/18 01/24/18 [Vitamin B-12] DULoxetine HCL [Cymbalta] 60 mg PO BID 01/24/18 01/24/18 FLUoxetine HCL [PROzac] 20 mg PO DAILY 01/24/18 01/24/18 Gabapentin [Neurontin] 300 mg PO QAM 01/24/18 01/24/18 Gabapentin [Neurontin] 600 mg PO HS 01/24/18 01/24/18 [place]-3 Fatty Acids/Fish Oil [Fish 1 cap PO DAILY 01/24/18 01/24/18 Oil 1,000 mg Softgel] Pyridoxine [Vitamin B-6] 50 mg PO DAILY 01/24/18 01/24/18 amLODIPine [Norvasc] 10 mg PO DAILY 01/24/18 01/24/18 risperiDONE [RisperDAL] 0.5 mg PO HS 01/24/18 01/24/18 traZODone HCL 300 mg PO HS 01/24/18 01/24/18 Previous Rx's Medication Instructions Recorded Aspirin 81 mg PO DAILY #30 tab 01/25/18 Atorvastatin [Lipitor] 40 mg PO DAILY #30 tab 01/25/18 Cyclobenzaprine [Flexeril] 10 mg PO BID PRN #14 tab 01/25/18 Allergies Allergy/AdvReac Type Severity Reaction Status Date / Time No Known Allergies Allergy Verified 04/07/19 00:17 Review of Systems ROS Statement: Those systems with pertinent positive or pertinent negative responses have been documented in the HPI. ROS Other: All systems not noted in ROS Statement are negative. Constitutional: Reports: fever (subjective) ENT: Denies: ear pain, throat pain Respiratory: Denies: cough, dyspnea, wheezes, hemoptysis Cardiovascular: Denies: chest pain, dyspnea on exertion Endocrine: Reports: fatigue Gastrointestinal: Denies: abdominal pain, diarrhea Genitourinary: Denies: urgency, dysuria Musculoskeletal: Denies: back pain Skin: Denies: rash Neurological: Reports: headache, weakness (generalized). Denies: abnormal gait Psychiatric: Reports: anxiety, depression Past Medical History Past Medical History: Fibromyalgia, Hypertension, Osteoarthritis (OA) Additional Past Medical History / Comment(s): degenerative disc disease. "told years ago i have emphysema", kidney stone in past(passed it on her own),past hx uterine fibroids. History of Any Multi-Drug Resistant Organisms: None Reported Past Surgical History: Appendectomy, Hernia Repair, Hysterectomy Additional Past Surgical History / Comment(s): total hysterectomy, navel hernia repair Past Anesthesia/Blood Transfusion Reactions: No Reported Reaction Past Psychological History: Depression Smoking Status: Current every day smoker Past Alcohol Use History: None Reported Past Drug Use History: None Reported - Past Family History Mother Family Medical History: Cancer Additional Family Medical History / Comment(s): cervical cancer Father Family Medical History: No Reported History Additional Family Medical History / Comment(s): "he was killed" General Exam - General Exam Comments Initial Comments: Physical Exam GENERAL: Patient is well-developed and well-nourished. Patient is nontoxic and well- hydrated and is in no distress. HENT: Normocephalic, Atraumatic. EYES: PERRL, EOMI PULMONARY: Unlabored respirations. No audible rales rhonchi or wheezing was noted. CARDIOVASCULAR: There is a regular rate and rhythm without any murmurs gallops or rubs. ABDOMEN: Soft and nontender with normal bowel sounds. SKIN: Skin is clear with no lesions or rashes and otherwise unremarkable. : Deferred NEUROLOGIC: Patient is alert and oriented x3. Moving all extremities spontaneously MUSCULOSKELETAL: Normal extremities with adequate strength and full range of motion. No lower extremity swelling or edema. No calf tenderness. PSYCHIATRIC: Normal psychiatric evaluation. Limitations: no limitations Course Vital Signs 04/07/19 04/07/19 00:13 02:35 Temperature 98.6 F 98.5 F Pulse Rate 97 77 Respiratory 20 17 Rate Blood Pressure 103/72 91/58 O2 Sat by Pulse 95 100 Oximetry Medical Decision Making - Medical Decision Making The patient was seen and evaluated history is obtained from patient His is a pleasant 53-year-old female with extensive past medical history and psychiatric history on multiple medications present with generalized malaise and subjective fevers dizziness. Patient was told she had a long infection a couple weeks ago and was given antibiotics and steroids she refused to steroids due to concern for interaction with her psychotropic medications. Patient reports she continues to feel somewhat unwell Labs and imaging were unremarkable patient received IV fluid she was sleeping comfortably. Results were discussed with the patient and program director group work at bedside. Patient was reassured and is comfortable with the plan for discharge h ome and outpatient follow-up with her primary care physician at this time. - Lab Data Result diagrams: 04/07/19 00:37 04/07/19 00:37 Lab Results 04/07/19 04/07/19 04/07/19 Range/Units 00:37 00:37 00:40 WBC 7.3 (3.8-10.6) k/uL RBC 4.38 (3.80-5.40) m/uL Hgb 13.3 (11.4-16.0) gm/dL Hct 40.1 (34.0-46.0) % MCV 91.5 (80.0-100.0) fL MCH 30.3 (25.0-35.0) pg MCHC 33.1 (31.0-37.0) g/dL RDW 14.3 (11.5-15.5) % Plt Count 222 (150-450) k/uL Neutrophils % 47 % Lymphocytes % 44 % Monocytes % 4 % Eosinophils % 3 % Basophils % 1 % Neutrophils # 3.4 (1.3-7.7) k/uL Lymphocytes # 3.2 (1.0-4.8) k/uL Monocytes # 0.3 (0-1.0) k/uL Eosinophils # 0.2 (0-0.7) k/uL Basophils # 0.1 (0-0.2) k/uL Sodium 139 (137-145) mmol/L Potassium 3.9 (3.5-5.1) mmol/L Chloride 106 (98-107) mmol/L Carbon Dioxide 27 (22-30) mmol/L Anion Gap 6 mmol/L BUN 11 (7-17) mg/dL Creatinine 0.87 (0.52-1.04) mg/dL Est GFR (CKD-EPI)AfAm 88 (>60 ml/min/1.73 sqM) Est GFR (CKD-EPI)NonAf 77 (>60 ml/min/1.73 sqM) Glucose 118 H (74-99) mg/dL Calcium 9.6 (8.4-10.2) mg/dL Magnesium 2.0 (1.6-2.3) mg/dL Total Bilirubin 0.2 (0.2-1.3) mg/dL AST 39 H (14-36) U/L ALT 31 (9-52) U/L Alkaline Phosphatase 80 (38-126) U/L Total Protein 7.2 (6.3-8.2) g/dL Albumin 4.4 (3.5-5.0) g/dL Urine Color Yellow Urine Appearance Clear (Clear) Urine pH 6.0 (5.0-8.0) Ur Specific [place] 1.013 (1.001-1.035) Urine Protein Negative (Negative) Urine Glucose (UA) Negative (Negative) Urine Ketones Negative (Negative) Urine Blood Negative (Negative) Urine Nitrite Negative (Negative) Urine Bilirubin Negative (Negative) Urine Urobilinogen <2.0 (<2.0) mg/dL Ur Leukocyte Esterase Trace H (Negative) Urine RBC 1 (0-5) /hpf Urine WBC 3 (0-5) /hpf Ur Squamous Epith Cells 3 (0-4) /hpf Urine Mucus Occasional H (None) /hpf Disposition Clinical Impression: Fatigue Disposition: HOME SELF-CARE Condition: Stable Instructions (If sedation given, give patient instructions): Fatigue (ED) Additional Instructions: Follow primary care physician to discuss treatment of your previously reported low thyroid levels and to discuss any of your symptoms could be side effects of any of her current medications. Make sure you drink plenty of water and stay well-hydrated. Return to the emergency department for reevaluation if you have any change or worsening of her condition. Is patient prescribed a controlled substance at d/c from ED?: No Referrals: Calista Gil MD [Primary Care Provider] - 1-2 days
[2019-04-07 02:36] VITALS: BP 91/58; PULSE 77; RESP 17; TEMP 98.5
== END 2019-04-07 02:36 | disposition home or self-care (01) ==
LOC: EC 00:06
DX: R53.83 Other fatigue (principal); R11.0 Nausea; R42 Dizziness and giddiness; R50.9 Fever, unspecified; R53.1 Weakness; I10 Essential (primary) hypertension; M19.90 Unspecified osteoarthritis, unspecified site; F32.9 Major depressive disorder, single episode, unspecified; F17.200 Nicotine dependence, unspecified, uncomplicated; Z79.899 Other long term (current) drug therapy
CPT/HCPCS: 36415; 71046; 80053; 81001; 83735; 85025; 96360; 99284

== ENCOUNTER 2019-08-26 22:02 | Emergency (ER) | payer MEDICARE, OTHER ==
[2019-08-26 22:07] VITALS: BP 145/98; PULSE 86; RESP 16; TEMP 98
[2019-08-26] MEDS ORDERED: GABAPENTIN 300 MG CAP PO STA ×2 (22:16→22:25)
--- NOTE | 2019-08-26 22:21 | ED ---
General Adult HPI - General Chief complaint: Recheck/Abnormal Lab/Rx Stated complaint: Generalized Pain Time Seen by Provider: 08/26/19 22:03 Source: EMS, RN notes reviewed, old records reviewed Mode of arrival: EMS Limitations: no limitations - History of Present Illness Initial comments: 53-year-old female patient past history of fibromyalgia presents ED chief complaint of unable to obtain gabapentin. Patient reports that today gabapentin for her fibromyalgia however has been unable to obtain it due to financial reasons. Patient does report that she has a prescription for. Patient reports that she has neuropathy in her legs. Denies any other complaints at this time. Requests home dose. Systemic: Pt denies fatigue, fever/chills, rash. Pt denies weakness, night sweats, weight loss. Neuro: Pt denies headache, visual disturbances, syncope or pre-syncope. HEENT: Pt denies ocular discharge or irritation, otalgia, rhinorrhea, pharyngitis or notable lymphadenopathy. Cardiopulmonary: Pt denies chest pain, SOB, heart palpitations, dyspnea on exertion. Abdominal/GI: Pt denies abdominal pain, n/v/d. : Pt denies dysuria, burning w/ urination, frequency/urgency. Denies new onset urinary or bowel incontinence. MSK: Pt denies loss of strength or function in extremities. Neuro: Pt denies new onset weakness, paresthesias. - Related Data Home Medications Medication Instructions Recorded Confirmed Cholecalciferol [Vitamin D3 (25 1,000 unit PO DAILY 01/24/18 01/24/18 Mcg = 1000 Iu)] Cyanocobalamin (Vitamin B-12) 1,000 mcg PO DAILY 01/24/18 01/24/18 [Vitamin B-12] DULoxetine HCL [Cymbalta] 60 mg PO BID 01/24/18 01/24/18 FLUoxetine HCL [PROzac] 20 mg PO DAILY 01/24/18 01/24/18 Gabapentin [Neurontin] 300 mg PO QAM 01/24/18 01/24/18 Gabapentin [Neurontin] 600 mg PO HS 01/24/18 01/24/18 [place]-3 Fatty Acids/Fish Oil [Fish 1 cap PO DAILY 01/24/18 01/24/18 Oil 1,000 mg Softgel] Pyridoxine [Vitamin B-6] 50 mg PO DAILY 01/24/18 01/24/18 amLODIPine [Norvasc] 10 mg PO DAILY 01/24/18 01/24/18 risperiDONE [RisperDAL] 0.5 mg PO HS 01/24/18 01/24/18 traZODone HCL 300 mg PO HS 01/24/18 01/24/18 Previous Rx's Medication Instructions Recorded Aspirin 81 mg PO DAILY #30 tab 01/25/18 Atorvastatin [Lipitor] 40 mg PO DAILY #30 tab 01/25/18 Cyclobenzaprine [Flexeril] 10 mg PO BID PRN #14 tab 01/25/18 Allergies Allergy/AdvReac Type Severity Reaction Status Date / Time No Known Allergies Allergy Verified 08/26/19 22:05 Review of Systems ROS Statement: Those systems with pertinent positive or pertinent negative responses have been documented in the HPI. ROS Other: All systems not noted in ROS Statement are negative. Past Medical History Past Medical History: Fibromyalgia, Hypertension, Osteoarthritis (OA) Additional Past Medical History / Comment(s): degenerative disc disease. "told years ago i have emphysema", kidney stone in past(passed it on her own),past hx uterine fibroids. History of Any Multi-Drug Resistant Organisms: None Reported Past Surgical History: Appendectomy, Hernia Repair, Hysterectomy Additional Past Surgical History / Comment(s): total hysterectomy, navel hernia repair Past Anesthesia/Blood Transfusion Reactions: No Reported Reaction Past Psychological History: Depression Smoking Status: Current every day smoker Past Alcohol Use History: None Reported Past Drug Use History: None Reported - Past Family History Mother Family Medical History: Cancer Additional Family Medical History / Comment(s): cervical cancer Father Family Medical History: No Reported History Additional Family Medical History / Comment(s): "he was killed" General Exam - General Exam Comments Initial Comments: Constitutional: NAD, AOX3, Pt has pleasant affect. HEENT: NC/AT, trachea midline, neck supple, no lymphadenopathy. Posterior pharynx non erythematous, without exudates. External ears appear normal, without discharge. Mucous membranes moist. Eyes PERRLA, EOM intact. There is no scleral icterus. No pallor noted. Cardiopulmonary: RRR, no murmurs, rubs or gallops, no JVD noted. Lungs CTAB in anterior and posterior fang. No peripheral edema. Abdominal exam: Abdomen soft and non-distended. Abdomen non-tender to palpation in all 4 quadrants. Bowel sounds active in LLQ. No hepatosplenomegaly. No ecchymosis Neuro: CN II-XII grossly intact. No nuchal rigidity. No raccon eyes, no santana sign, no hemotympanum. No cervical spinal tenderness. MSK: No posterior calf tenderness bilaterally, homans sign negative bilaterally. Posterior tibialis and radial pulse +2 bilaterally. Sensation intact in upper and lower extremities. Full active ROM in upper and lower extremities, 5/5 stregnth. Limitations: no limitations Course Vital Signs 08/26/19 22:05 Temperature 98 F Pulse Rate 86 Respiratory 16 Rate Blood Pressure 145/98 O2 Sat by Pulse 98 Oximetry Medical Decision Making - Medical Decision Making 53-year-old female patient with the chief complaint of request for home dose of gabapentin. Patient vital signs are stable, afebrile. Physical exam didn't display acute pathology. Patient has been on those. We'll be discharged and will follow up with primary care provider for further evaluation. Case discussed with Dr. Marshall. Disposition Clinical Impression: Neuropathy, Encounter for medication refill Disposition: HOME SELF-CARE Condition: Stable Instructions (If sedation given, give patient instructions): Fibromyalgia (ED) Additional Instructions: Patient to adhere to previously discussed treatment plan and will take medication(s) as directed. Patient to follow up with PCP in 1-2 days. Patient to return to ED if symptoms do not improve. Follow-up with primary care provider for further evaluation. Return to ER if condition worsens. Is patient prescribed a controlled substance at d/c from ED?: No Referrals: Calista Gil MD [Primary Care Provider] - 1-2 days
== END 2019-08-26 22:44 | disposition home or self-care (01) ==
LOC: EC 22:02
DX: G62.9 Polyneuropathy, unspecified (principal); Z76.0 Encounter for issue of repeat prescription; M79.7 Fibromyalgia; F32.9 Major depressive disorder, single episode, unspecified; I10 Essential (primary) hypertension; M19.90 Unspecified osteoarthritis, unspecified site; F17.200 Nicotine dependence, unspecified, uncomplicated; Z79.899 Other long term (current) drug therapy
CPT/HCPCS: 99284

== ENCOUNTER 2019-10-26 10:42 | Emergency (ER) | payer MEDICARE, OTHER ==
[2019-10-26 11:22] VITALS: BP 142/85; PULSE 100; RESP 18; TEMP 98.5
--- NOTE | 2019-10-26 11:42 | ED ---
URI HPI - General Chief Complaint: Upper Respiratory Infection Stated Complaint: Cough, bronchitis Time Seen by Provider: 10/26/19 11:26 Source: patient Mode of arrival: ambulatory Limitations: no limitations - History of Present Illness Initial Comments: 54-year-old female presenting for possible bronchitis, cough. Patient states she has had a cough for the past week she states he present to her primary care provider on [address] and was prescribed Augmentin for possible pneumonia. Patient states she still has a cough. Denies fevers. Patient admits to chills. Denies abdominal pain nausea vomiting diarrhea chest pain or shortness of breath. Remaining review of systems negative upon arrival patient appears well no signs of acute distress. - Related Data Home Medications Medication Instructions Recorded Confirmed Cholecalciferol [Vitamin D3 (25 1,000 unit PO DAILY 01/24/18 01/24/18 Mcg = 1000 Iu)] Cyanocobalamin (Vitamin B-12) 1,000 mcg PO DAILY 01/24/18 01/24/18 [Vitamin B-12] DULoxetine HCL [Cymbalta] 60 mg PO BID 01/24/18 01/24/18 FLUoxetine HCL [PROzac] 20 mg PO DAILY 01/24/18 01/24/18 Gabapentin [Neurontin] 300 mg PO QA 01/24/18 01/24/18 Gabapentin [Neurontin] 600 mg PO HS 01/24/18 01/24/18 [place]-3 Fatty Acids/Fish Oil [Fish 1 cap PO DAILY 01/24/18 01/24/18 Oil 1,000 mg Softgel] Pyridoxine [Vitamin B-6] 50 mg PO DAILY 01/24/18 01/24/18 amLODIPine [Norvasc] 10 mg PO DAILY 01/24/18 01/24/18 risperiDONE [RisperDAL] 0.5 mg PO HS 01/24/18 01/24/18 traZODone HCL 300 mg PO HS 01/24/18 01/24/18 Previous Rx's Medication Instructions Recorded Aspirin 81 mg PO DAILY #30 tab 01/25/18 Atorvastatin [Lipitor] 40 mg PO DAILY #30 tab 01/25/18 Cyclobenzaprine [Flexeril] 10 mg PO BID PRN #14 tab 01/25/18 Albuterol Inhaler [Ventolin Hfa 1 - 2 puff INHALATION RT-Q6H PRN 7 10/26/19 Inhaler] Days #1 inhaler predniSONE 20 mg PO DAILY 5 Days #5 tab 10/26/19 Allergies Allergy/AdvReac Type Severity Reaction Status Date / Time No Known Allergies Allergy Verified 08/26/19 22:05 Review of Systems ROS Statement: Those systems with pertinent positive or pertinent negative responses have been documented in the HPI. ROS Other: All systems not noted in ROS Statement are negative. Past Medical History Past Medical History: Fibromyalgia, Hypertension, Osteoarthritis (OA) Additional Past Medical History / Comment(s): degenerative disc disease History of Any Multi-Drug Resistant Organisms: None Reported Past Surgical History: Appendectomy, Hernia Repair, Hysterectomy Additional Past Surgical History / Comment(s): total hysterectomy, navel hernia repair Past Anesthesia/Blood Transfusion Reactions: No Reported Reaction Past Psychological History: Depression Smoking Status: Current every day smoker Past Alcohol Use History: None Reported Past Drug Use History: None Reported - Past Family History Mother Family Medical History: Cancer Additional Family Medical History / Comment(s): cervical cancer Father Family Medical History: No Reported History Additional Family Medical History / Comment(s): "he was killed" General Exam - General Exam Comments Initial Comments: General: The patient is awake and alert, in no distress, and does not appear acutely ill. Eye: +3 mm pupils are equal, round and reactive to light, extra-ocular movements are intact. No nystagmus. There is normal conjunctiva bilaterally. No signs of icterus. No photophobia Ears, nose, mouth and throat: There are moist mucous membranes and no oral lesions. Oropharynx was not erythematous there is no tonsillar enlargement exudates or lesions. Uvula midline. Tympanic membranes are not erythematous or is no effusions bulging or retraction. No tenderness to palpation of the mastoid. No anterior cervical lymphadenopathy. Rhinorrhea, clear and bilateral nares. No tripoding, no drooling. Neck: The neck is supple, there is no tenderness or JVD. No nuchal rigidity Cardiovascular: There is a regular rate and rhythm. No murmur, rub or gallop is appreciated. Respiratory: Lungs are clear to auscultation, respirations are non-labored, breath sounds are equal. No wheezes, stridor, rales, or rhonchi. No retractions or abdominal breathing. Gastrointestinal: Soft, non-distended, non-tender abdomen without masses or organomegaly noted. There is no rebound or guarding present. Bowel sounds are unremarkable. Musculoskeletal: Normal ROM, no tenderness. Strength 5/5. Sensation intact. Radial pulses equal bilaterally 2+. Neurological: A&O x 3. CN II-XII intact grossly, There are no obvious motor or sensory deficits. Coordination appears grossly intact. Speech appears normal, no muffling. Skin: Skin is warm and dry and no rashes or lesions are noted. No extremity edema Psychiatric: Cooperative Limitations: no limitations Course Vital Signs 10/26/19 11:20 Temperature 98.5 F Pulse Rate 100 Respiratory 18 Rate Blood Pressure 142/85 O2 Sat by Pulse 99 Oximetry Medical Decision Making - Medical Decision Making Well-appearing 54-year-old female presenting today for chief complaint of cough. Chest x-ray revealed findings of a possible apical pneumonia. Patient has been on 1 day of antibiotics. Patient is afebrile well-appearing no tachycardia or hypotension at this time I feel she is stable for discharge with outpatient treatment as previously prescribed as well as an albuterol inhaler and prednisone. Patient is agreeable with care plan to discharge at this time. Discussed case with attending provider Disposition Clinical Impression: Pneumonia Disposition: HOME SELF-CARE Condition: Good Instructions (If sedation given, give patient instructions): Pneumonia (ED) Additional Instructions: Please use medication as discussed. Please follow-up with family doctor in the next 2 days. Please return to emergency room if the symptoms increase or worsen or for any other concerns. Prescriptions: predniSONE 20 mg PO DAILY 5 Days #5 tab Albuterol Inhaler [Ventolin Hfa Inhaler] 1 - 2 puff INHALATION RT-Q6H PRN 7 Days #1 inhaler PRN Reason: Wheezing Is patient prescribed a controlled substance at d/c from ED?: No Referrals: Calista Gil MD [Primary Care Provider] - 1-2 days Time of Disposition: 12:09
--- NOTE | 2019-10-26 12:05 | XR ---
EXAMINATION TYPE: XR chest 2V DATE OF EXAM: 10/26/2019 COMPARISON: 04/07/2019 HISTORY: 54-year-old female with cough TECHNIQUE: PA and lateral views FINDINGS: Heart normal size. Aorta and pulmonary vasculature within normal limits. Mild right apical pleural-pa renchymal scarring. Mild interstitial prominence has a chronic appearance. Slight asymmetric opacity at the right apex. IMPRESSION: Slight asymmetric opacity at the right apex could represent an early focus of pneumonia. Follow-up ca n be performed.
== END 2019-10-26 12:29 | disposition home or self-care (01) ==
LOC: EC 10:42
DX: J18.9 Pneumonia, unspecified organism (principal); M79.7 Fibromyalgia; I10 Essential (primary) hypertension; F32.9 Major depressive disorder, single episode, unspecified; F17.200 Nicotine dependence, unspecified, uncomplicated; Z79.899 Other long term (current) drug therapy
CPT/HCPCS: 71046; 99283

== ENCOUNTER 2019-11-02 20:15 | Inpatient (IN) | payer MEDICARE, MEDICAID ==
[2019-11-02] MEDS ORDERED: IBUPROFEN 600 MG TAB PO STA (22:01)
[2019-11-02] MEDS ORDERED: ONDANSETRON ODT 4 MG TAB PO STA (22:01)
[2019-11-02] MEDS ORDERED: guaiFENesin-DM 600/30MG 1 EACH TAB.ER.12H PO STA (22:01)
[2019-11-02] MEDS ORDERED: IPRATROPIUM-ALBUTEROL 3 ML NEB INHALATION STA (22:02)
--- NOTE | 2019-11-02 22:09 | ED ---
Psych HPI - General Chief Complaint: Psychiatric Symptoms Stated Complaint: not feeling well Time Seen by Provider: 11/02/19 20:43 Source: family Mode of arrival: EMS - History of Present Illness Initial Comments: 54-year-old female patient presents to the emergency department today for evaluation of increased depression and suicidal ideation. Patient states that she has been having increasing depression since July when her brother . States that recently she has been thinking about drowning herself in the bathtub. Patient states she also has been recently sick with pneumonia, currently taking antibiotics and steroids. She is currently reporting headache and nausea. She does report occasional headaches. She denies this being the worst headache of her life. Denies numbness, tingling, weakness to her extremities. She denies any alcohol or drug use. Does have a history of smoking cigarettes. She denies any fever or chills. Patient denies any recent rash, chest pain, abdominal pain, vomiting, diarrhea, constipation, back pain, hematuria, dysuria, urinary urgency, urinary frequency, visual changes, or any other complaints. - Related Data Home Medications Medication Instructions Recorded Confirmed Cholecalciferol [Vitamin D3 (25 1,000 unit PO DAILY 01/24/18 01/24/18 Mcg = 1000 Iu)] Cyanocobalamin (Vitamin B-12) 1,000 mcg PO DAILY 01/24/18 01/24/18 [Vitamin B-12] DULoxetine HCL [Cymbalta] 60 mg PO BID 01/24/18 01/24/18 FLUoxetine HCL [PROzac] 20 mg PO DAILY 01/24/18 01/24/18 Gabapentin [Neurontin] 300 mg PO QAM 01/24/18 01/24/18 Gabapentin [Neurontin] 600 mg PO HS 01/24/18 01/24/18 [place]-3 Fatty Acids/Fish Oil [Fish 1 cap PO DAILY 01/24/18 01/24/18 Oil 1,000 mg Softgel] Pyridoxine [Vitamin B-6] 50 mg PO DAILY 01/24/18 01/24/18 amLODIPine [Norvasc] 10 mg PO DAILY 01/24/18 01/24/18 risperiDONE [RisperDAL] 0.5 mg PO HS 01/24/18 01/24/18 traZODone HCL 300 mg PO HS 01/24/18 01/24/18 Previous Rx's Medication Instructions Recorded Aspirin 81 mg PO DAILY #30 tab 01/25/18 Atorvastatin [Lipitor] 40 mg PO DAILY #30 tab 01/25/18 Cyclobenzaprine [Flexeril] 10 mg PO BID PRN #14 tab 01/25/18 Albuterol Inhaler [Ventolin Hfa 1 - 2 puff INHALATION RT-Q6H PRN 7 10/26/19 Inhaler] Days #1 inhaler predniSONE 20 mg PO DAILY 5 Days #5 tab 10/26/19 Allergies Allergy/AdvReac Type Severity Reaction Status Date / Time No Known Allergies Allergy Verified 11/02/19 20:26 Review of Systems ROS Statement: Those systems with pertinent positive or pertinent negative responses have been documented in the HPI. ROS Other: All systems not noted in ROS Statement are negative. Past Medical History Past Medical History: Fibromyalgia, Hypertension, Osteoarthritis (OA) Additional Past Medical History / Comment(s): degenerative disc disease History of Any Multi-Drug Resistant Organisms: None Reported Past Surgical History: Appendectomy, Hernia Repair, Hysterectomy Additional Past Surgical History / Comment(s): total hysterectomy, navel hernia repair Past Anesthesia/Blood Transfusion Reactions: No Reported Reaction Past Psychological History: Depression Smoking Status: Current every day smoker Past Alcohol Use History: None Reported Past Drug Use History: None Reported - Past Family History Mother Family Medical History: Cancer Additional Family Medical History / Comment(s): cervical cancer Father Family Medical History: No Reported History Additional Family Medical History / Comment(s): "he was killed" General Exam General appearance: alert, in no apparent distress, other (Physical well-de veloped, well-nourished adult female patient in no acute distress. Vital signs upon presentation are temperature 98.4F, pulse 98, respirations 16, blood pressure 144/81, pulse ox 98% on room air.) Eye exam: Present: normal appearance, PERRL, EOMI. Absent: scleral icterus, conjunctival injection, periorbital swelling ENT exam: Present: normal exam, normal oropharynx, mucous membranes moist Respiratory exam: Present: normal lung sounds bilaterally, other (Congested cough noted during exam). Absent: respiratory distress, wheezes, rales, rhonchi, stridor, accessory muscle use Cardiovascular Exam: Present: regular rate, normal rhythm, normal heart sounds. Absent: systolic murmur, diastolic murmur, rubs, gallop, clicks GI/Abdominal exam: Present: soft, normal bowel sounds. Absent: distended, tenderness, guarding, rebound, rigid Neurological exam: Present: alert, oriented X3, CN II-XII intact Psychiatric exam: Present: normal affect, normal mood Skin exam: Present: warm, dry, intact, normal color. Absent: rash Course Vital Signs 11/02/19 11/02/19 11/02/19 20:19 20:39 22:19 Temperature 98.4 F Pulse Rate 98 98 Respiratory 16 20 16 Rate Blood Pressure 144/81 O2 Sat by Pulse 98 Oximetry 11/02/19 22:26 Temperature Pulse Rate 100 Respiratory 16 Rate Blood Pressure O2 Sat by Pulse Oximetry Medical Decision Making - Medical Decision Making 54-year-old female patient presented to the emergency department today for evaluation of suicidal ideation. Physical examination did reveal clear equal lung sounds which is have a cough, currently being treated for pneumonia. She is medically cleared and seen and evaluated by emergency psychiatric services. She'll be admitted to the mental health unit for further psychiatric treatment. - Lab Data Lab Results 11/02/19 Range/Units 22:58 Urine Opiates Screen Not Detected (NotDetected) Ur Oxycodone Screen Not Detected (NotDetected) Urine Methadone Screen Not Detected (NotDetected) Ur Propoxyphene Screen Not Detected (NotDetected) Ur Barbiturates Screen Not Detected (NotDetected) U Tricyclic Antidepress Not Detected (NotDetected) Ur Phencyclidine Scrn Not Detected (NotDetected) Ur Amphetamines Screen Not Detected (NotDetected) U Methamphetamines Scrn Not Detected (NotDetected) U Benzodiazepines Scrn Detected H (NotDetected) Urine Cocaine Screen Not Detected (NotDetected) U Marijuana (THC) Screen Not Detected (NotDetected) Disposition Clinical Impression: Suicidal ideation Disposition: TRANSFER TO PSYCH HOSP/UNIT Condition: Serious Referrals: Calista Gil MD [Primary Care Provider] - 1-2 days - Out of Hospital Transfer - Req. Specs Out of Hospital Transfer - Requested Specifics: Psychiatric Non-ICU ([facility])
[2019-11-02 23:26] LABS: Amphetamine Screen,Urine Not Detected (NotDetected); Barbiturate Screen,Urine Not Detected (NotDetected); Benzodiazepines Screen,Urine Detected (NotDetected); Cocaine Screen,Urine Not Detected (NotDetected); Methadone Screen, Urine Not Detected (NotDetected); Opiate Screen,Urine Not Detected (NotDetected); Oxycodone Screen, Urine Not Detected (NotDetected); Phencyclidine Screen,Urine Not Detected (NotDetected); Tricyclic Antidepressant,Urine Not Detected (NotDetected); Urn Cannabinoid Scrn Not Detected (NotDetected)
[2019-11-03] MEDS ORDERED: ACETAMINOPHEN TAB 325 MG TAB PO PRN (02:02)
[2019-11-03] MEDS ORDERED: LORazepam 1 MG TAB PO PRN (02:02)
[2019-11-03] MEDS ORDERED: MAG HYDROX/AL HYDROX/SIMETH 30 ML CUP PO PRN (02:02)
[2019-11-03] MEDS ORDERED: MAGNESIUM HYDROXIDE 2,400 MG/10 ML CUP PO PRN (02:02)
[2019-11-03] MEDS ORDERED: ZIPRASIDONE 20 MG VIAL IM PRN (02:02)
[2019-11-03] MEDS ORDERED: IBUPROFEN 800 MG TAB PO PRN (02:05)
[2019-11-03 02:44] LABS: Amorphous Sediment,Urine Rare /hpf; Appearance,Urine Cloudy (Clear); Bilirubin,Urine Negative (Negative); Blood,Urine Negative (Negative); Color,Urine Yellow; Glucose,Urine (UA) Negative (Negative); Ketones,Urine Negative (Negative); Leukocyte Esterase,Urine Trace (Negative); Mucus,Urine Rare /hpf; Nitrite,Urine Negative (Negative); Protein,Urine Negative (Negative); RBC,Urine 4 /hpf (0-5); Specific Gravity,Urine 1.011 (1.001-1.035); Squamous Epithelial Cell,Urine 2 /hpf (0-4); Urobilinogen,Urine <2.0 mg/dL (<2.0); WBC,Urine 6 /hpf (0-5)
[2019-11-03] MEDS ORDERED: CHOLECALCIFEROL 400 UNIT TAB PO SCH (09:00)
[2019-11-03] MEDS: amLODIPine 10 MG TAB PO SCH (09:19)
[2019-11-03] MEDS: GABAPENTIN 300 MG CAP PO SCH ×3 (09:20→20:58)
[2019-11-03] MEDS: DULoxetine HCL 60 MG CAPSULE.DR PO SCH ×2 (09:20→20:57)
[2019-11-03] MEDS: CYANOCOBALAMIN 500 MCG TAB PO SCH (09:20)
[2019-11-03] MEDS: PYRIDOXINE 50 MG TAB PO SCH (09:20)
[2019-11-03] MEDS: NICOTINE 14MG/24HR PATCH TRANSDERM SCH (09:26)
[2019-11-03] MEDS: CHOLECALCIFEROL 1,000 UNIT TAB PO SCH (10:47)
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
[2019-11-03] MEDS: buPROPion SR 100 MG TABLET.ER PO SCH (13:19)
[2019-11-03] MEDS: FOLIC ACID 1 MG TAB PO SCH (13:19)
[2019-11-03] MEDS: LEVOFLOXACIN 500 MG TAB PO SCH (18:34)
--- NOTE | 2019-11-03 19:35 | CONS ---
CONSULTATION DATE OF SERVICE: 11/03/2019 HISTORY OF PRESENT ILLNESS: Patient is a 54-year-old female who is seen in the mental health unit at [facility]. The patient states that she had worsening of her depression since her brother in July. She has been trying diligently at home to get through it without having to be admitted. However, it continued to worsen to the point that she felt some suicidal ideation. Subsequently, came to the emergency room and was admitted for psychiatric evaluation and into the psychiatric unit. The patient also states that she has been treated for pneumonia and on oral antibiotics and steroids by her PCP and had not finished all of the antibiotic, however, does not know what it was and was lead to believe that she would be put on an antibiotic by her primary care physician. PAST MEDICAL HISTORY: Significant for fibromyalgia, hypertension, osteoarthritis, depression, degenerative disk disease, recently diagnosed with COPD, kidney stone in the past which she passed on her own, uterine fibroids. PAST SURGICAL HISTORY: Significant for total hysterectomy, navel hernia repair, appendectomy, and perforated vagina with repair x2. ALLERGIES: No known drug allergies. MEDICATIONS: Medications patient takes at home include Neurontin 300 mg p.o. t.i.d., trazodone 300 mg p.o. q.h.s., Norvasc 5 mg p.o. daily, Cymbalta 60 mg p.o. b.i.d., vitamin B12 1000 mcg p.o. daily, vitamin D3 1000 units p.o. daily, Lipitor 40 mg p.o. daily, aspirin 81 mg p.o. daily, Ventolin inhaler 1 to 2 puffs q.6 hours p.r.n., Risperdal 1 mg p.o. q.h.s., vitamin B6 50 mg p.o. daily, omega-3 fatty acids and fish oil 1 cap p.o. daily and Prozac 40 mg p.o. daily. FAMILY HISTORY: Mother has history of cervical cancer. Father with no known history. He was killed according to the patient's chart. SOCIAL HISTORY: Patient is a smoker and smokes a little over a pack a day for 45 years. Patient is trying to quit. Denies any alcohol intake. Denies any illicit drug use. PHYSICAL EXAM: GENERAL: A 54-year-old female who is seen wrapped up in a blanket, is ambulatory and cooperative with history. VITAL SIGNS: Temp 98.4, heart rate 86, respiratory rate 16, blood pressure is 115/74, O2 sats 97% on room air. HEENT. Head is normocephalic, atraumatic. Pupils equal, round, reactive to light. Ears, nose no discharge is noted. Mouth with moist mucous membranes. Mallampati is class 3. NECK: Supple. Trachea is midline. LUNGS: Lung sounds diminished with scattered expiratory wheeze. HEART: S1, S2 are heard. Not tachycardic. ABDOMEN: Soft. Bowel sounds are positive. EXTREMITIES: With no edema. NEUROLOGIC: Patient is alert, oriented. Denies suicidal ideation at this time. LABS: Urinalysis is positive for trace leuk esterase, negative for nitrites, positive for benzodiazepines. No other labs. No new imaging to review. IMPRESSION: 1. Depressive disorder. 2. Acute exacerbation of chronic obstructive pulmonary disease. 3. History of fibromyalgia. 4. History of hypertension. 5. History of osteoarthritis with degenerative disk disease. PLAN: Will add bronchodilators with DuoNeb t.i.d. scheduled. Will also add inhaled corticosteroids in the form of Pulmicort 0.5 mg via nebulizer b.i.d. and add Singulair 10 mg p.o. q.h.s. Encourage deep breathing and add incentive spirometry. Will follow fever pattern as at this point doubt that there is any pneumonia and no need for antibiotic. If fever results, then we will re-dress. Thank you for the consultation. We will follow patient closely with you making further changes as necessary. MMODL / IJN: [id number] /
[2019-11-03] MEDS ORDERED: BUDESONIDE 0.5 MG/2 ML NEBU ONE (20:35)
[2019-11-03] MEDS: BUDESONIDE 0.5 MG/2 ML NEBU INHALATION SCH (20:40)
[2019-11-03] MEDS: IPRATROPIUM-ALBUTEROL 3 ML NEB INHALATION SCH (20:40)
[2019-11-03] MEDS: MELATONIN 5 MG TABLET PO SCH (20:57)
[2019-11-03] MEDS: ATORVASTATIN 40 MG TAB PO SCH (20:57)
[2019-11-03] MEDS: traZODone HCL 100 MG TAB PO SCH (20:58)
[2019-11-03] MEDS: MONTELUKAST 10 MG TAB PO SCH (20:58)
[2019-11-04 08:51] LABS: Basophils % (A) 0 %; Eosinophils # (A) 0.2 k/uL (0-0.7); Eosinophils % (A) 4 %; HCT 42.3 % (34.0-46.0); HGB 13.6 gm/dL (11.4-16.0); Lymphocytes # (A) 2.7 k/uL (1.0-4.8); Lymphocytes % (A) 48 %; MCH 31.1 pg (25.0-35.0); MCHC 32.1 g/dL (31.0-37.0); MCV 97.1 fL (80.0-100.0); Mean Platelet Volume 7.3; Monocytes # (A) 0.3 k/uL (0-1.0); Monocytes % (A) 5 %; Neutrophils # (A) 2.3 k/uL (1.3-7.7); Neutrophils % (A) 41 %; Platelet Count 207 k/uL (150-450); RBC 4.36 m/uL (3.80-5.40); RDW 13.7 % (11.5-15.5); WBC 5.7 k/uL (3.8-10.6)
[2019-11-04] MEDS: NICOTINE 14MG/24HR PATCH TRANSDERM SCH (09:03)
[2019-11-04] MEDS: ASPIRIN 81 MG PO SCH (09:03)
[2019-11-04] MEDS: amLODIPine 10 MG TAB PO SCH (09:03)
[2019-11-04] MEDS: buPROPion SR 100 MG TABLET.ER PO SCH (09:03)
[2019-11-04] MEDS: PYRIDOXINE 50 MG TAB PO SCH (09:04)
[2019-11-04] MEDS: CHOLECALCIFEROL 1,000 UNIT TAB PO SCH (09:04)
[2019-11-04] MEDS: GABAPENTIN 300 MG CAP PO SCH ×3 (09:04→21:01)
[2019-11-04] MEDS: CYANOCOBALAMIN 500 MCG TAB PO SCH (09:05)
[2019-11-04] MEDS: FOLIC ACID 1 MG TAB PO SCH (09:05)
[2019-11-04] MEDS: DULoxetine HCL 60 MG CAPSULE.DR PO SCH ×2 (09:05→21:01)
[2019-11-04 09:10] LABS: ALT 20 U/L (4-34); AST 26 U/L (14-36); African American GFR (CKD) >90 (>60 ml/min/1.73 sqM); Albumin 4.2 g/dL (3.5-5.0); Alkaline Phosphatase 66 U/L (38-126); Anion Gap 6 mmol/L; Bilirubin, Delta 0.2 mg/dL (0.0-0.2); Bilirubin,Unconjugated 0.2 mg/dL (0.0-1.1); Blood Urea Nitrogen 16 mg/dL (7-17); Calcium 9.8 mg/dL (8.4-10.2); Carbon Dioxide 26 mmol/L (22-30); Chloride 109 mmol/L (98-107); Cholesterol 155 mg/dL (<200); Glucose 117 mg/dL (74-99); HDL Cholesterol 58 mg/dL (40-60); LDL Cholesterol,Calculated 84 mg/dL (0-99); Non-African American GFR(CKD) 78 (>60 ml/min/1.73 sqM); Potassium 4.4 mmol/L (3.5-5.1); Sodium 141 mmol/L (137-145); Total Bilirubin 0.4 mg/dL (0.2-1.3); Total Protein 7.2 g/dL (6.3-8.2); Triglycerides 63 mg/dL (<150)
[2019-11-04] MEDS: IPRATROPIUM-ALBUTEROL 3 ML NEB INHALATION SCH ×3 (10:54→21:32)
[2019-11-04] MEDS: BUDESONIDE 0.5 MG/2 ML NEBU INHALATION SCH ×2 (11:06→21:32)
[2019-11-04 12:15] LABS: Glucose,Whole Blood 68 mg/dL (75-99)
--- NOTE | 2019-11-04 12:26 | P.PN ---
Subjective Progress Note Date: 11/04/19 The patient seen and chart reviewed. The case was reviewed with the team. The patient continues to report feeling depressed and anxious. She is somatically focused. The patient complains of poor sleep last night but a little better than the night before. The patient reports him the multiple physical ailments including feeling dizzy. The patient appears to be somewhat irritable. The patient denies any auditory or visual hallucinations. She denies any active suicidal or homicidal ideations at this time. Objective - Vital Signs Vital signs: Vital Signs Temp 98.7 F 11/04/19 06:32 Pulse 75 11/04/19 11:51 Resp 16 11/04/19 11:51 BP 138/74 11/04/19 11:51 Pulse Ox 100 11/04/19 11:51 - Exam MENTAL STATUS EXAM: General Appearance: Patient appears to be stated age is alert, directable and attempts to cooperate. Marginal hygiene and grooming. Patient is tearful at times. Behavior: Patient is calmly seated without any agitated behavior. Tearful at times. Speech: Patient's speech is fluent and nonpressured. Hesitant. Mood/Affect: Patient reports their mood is depressed, affect is congruent and tearful. Suicidality/Homicidality: Patient denies having any suicidal or homicidal ideation intent or plan. Perceptions: Patient denies any auditory or visual hallucinations. Though content/process: There is no evidence of any delusional thought content and thought process is linear and goal-directed. Preoccupied with her medications and depressive content. Memory and concentration: AOX3 Judgment and insight: poor - Labs CBC & Chem 7: 11/04/19 08:28 11/04/19 08:28 Labs: Abnormal Lab Results - Last 24 Hours (Table) 11/04/19 11/04/19 Range/Units 08:28 12:12 Chloride 109 H (98-107) mmol/L Glucose 117 H (74-99) mg/dL POC Glucose (mg/dL) 68 L (75-99) mg/dL Microbiology - Last 24 Hours (Table) 11/03/19 19:00 Urine Culture - Preliminary Urine,Voided Assessment and Plan Assessment: IMPRESSIONS: Major depressive disorder, without psychotic features Nicotine dependence Plan: PLAN: -Patient is admitted under voluntary status to MHU for stabilization of psychi atric symptoms and safety. Patient signed adult voluntary form and medication consent and is placed in patient's chart. -Medications : Continue patient on Cymbalta 60 mg twice a day for mood/pain. Continue Wellbutrin 100 mg SR for mood adjunct with plan to titrate up as needed. Continue melatonin 5 mg daily at bedtime for sleep. Continue with trazodone 300 mg daily at bedtime for insomnia/mood. -Ativan and Geodon PRN for agitation/aggression -Will review patient's pain medications this patient has severe fibromyalgia. Restarted gabapentin at home dose. -Patient was informed of the risks, benefits and side effects of the medication and patient verbally consented to taking the medications. Patient signed med consent form and was placed in chart. -Internal medicine to complete history and physical on patient. Patient has a history of pneumonia 1 week. Consider infectious disease consult and recommendations for antibiotics?, will await internal medicine recommendations. -NRT - nicotine patch -SW on board for discharge planning
[2019-11-04 12:31] LABS: Glucose,Whole Blood 90 mg/dL (75-99)
[2019-11-04] MEDS: LEVOFLOXACIN 500 MG TAB PO SCH (17:26)
[2019-11-04 17:54] LABS: Hemoglobin A1C 5.5 % (4.0-6.0)
[2019-11-04] MEDS: MONTELUKAST 10 MG TAB PO SCH (21:01)
[2019-11-04] MEDS: traZODone HCL 100 MG TAB PO SCH (21:01)
[2019-11-04] MEDS: ATORVASTATIN 40 MG TAB PO SCH (21:01)
[2019-11-04] MEDS: MELATONIN 5 MG TABLET PO SCH (21:01)
[2019-11-04] MEDS: ALBUTEROL INHALER 60 PUFF/8 GM INHALER INHALATION PRN (21:12)
[2019-11-05] MEDS: ALBUTEROL INHALER 60 PUFF/8 GM INHALER INHALATION PRN (02:24)
[2019-11-05] MEDS: NICOTINE 14MG/24HR PATCH TRANSDERM SCH (08:51)
[2019-11-05] MEDS: amLODIPine 10 MG TAB PO SCH (08:52)
[2019-11-05] MEDS: ASPIRIN 81 MG PO SCH (08:52)
[2019-11-05] MEDS: buPROPion SR 100 MG TABLET.ER PO SCH (08:52)
[2019-11-05] MEDS: CHOLECALCIFEROL 1,000 UNIT TAB PO SCH (08:52)
[2019-11-05] MEDS: FOLIC ACID 1 MG TAB PO SCH (08:53)
[2019-11-05] MEDS: PYRIDOXINE 50 MG TAB PO SCH (08:53)
[2019-11-05] MEDS: CYANOCOBALAMIN 500 MCG TAB PO SCH (08:53)
[2019-11-05] MEDS: GABAPENTIN 300 MG CAP PO SCH ×3 (08:53→21:05)
[2019-11-05] MEDS: DULoxetine HCL 60 MG CAPSULE.DR PO SCH ×2 (08:53→21:05)
[2019-11-05] MEDS: IPRATROPIUM-ALBUTEROL 3 ML NEB INHALATION SCH ×3 (10:22→22:34)
[2019-11-05] MEDS: BUDESONIDE 0.5 MG/2 ML NEBU INHALATION SCH ×2 (10:22→22:34)
--- NOTE | 2019-11-05 11:01 | P.PN ---
Subjective Progress Note Date: 11/05/19 The patient seen and chart reviewed. The patient remained somatically focused and somewhat demanding. The patient reports fair sleep and appetite. She continues to report feeling depressed and anxious. The patient reports frequent crying spells. The patient's speech was somatically focused at home but otherwise goal directed and logical. The patient denies any auditory or visual hallucinations. She denies any active suicidal or homicidal ideations at this time. The patient denies any side effects of the medications at this time. Objective - Vital Signs Vital signs: Vital Signs Temp 99.0 F 11/05/19 02:28 Pulse 78 11/05/19 10:40 Resp 16 11/05/19 02:28 BP 106/70 11/05/19 02:28 Pulse Ox 100 11/04/19 11:51 Intake & Output 11/04/19 11/05/19 11/05/19 18:59 06:59 18:59 Weight 61.8 kg - Exam MENTAL STATUS EXAM: General Appearance: Patient appears to be stated age is alert, directable and attempts to cooperate. Marginal hygiene and grooming. Patient is tearful at times. Behavior: Patient is calmly seated without any agitated behavior. Speech: Patient's speech is fluent and nonpressured. Mood/Affect: Patient reports their mood is depressed, affect is congruent and tearful. Suicidality/Homicidality: Patient denies having any suicidal or homicidal i deation intent or plan. Perceptions: Patient denies any auditory or visual hallucinations. Though content/process: There is no evidence of any delusional thought content and thought process is linear and goal-directed. Preoccupied with her medications and depressive content. Memory and concentration: AOX3 Judgment and insight: poor - Labs CBC & Chem 7: 11/04/19 08:28 11/04/19 08:28 Labs: Abnormal Lab Results - Last 24 Hours (Table) 11/04/19 Range/Units 12:12 POC Glucose (mg/dL) 68 L (75-99) mg/dL Microbiology - Last 24 Hours (Table) 11/03/19 19:00 Urine Culture - Final Urine,Voided Assessment and Plan Assessment: IMPRESSIONS: Major depressive disorder, without psychotic features Nicotine dependence Plan: PLAN: -Patient is admitted under voluntary status to MHU for stabilization of psychiatric symptoms and safety. Patient signed adult voluntary form and medication consent and is placed in patient's chart. -Medications : Continue patient on Cymbalta 60 mg twice a day for mood/pain. Continue Wellbutrin 100 mg SR for mood adjunct with plan to titrate up as needed. Continue melatonin 5 mg daily at bedtime for sleep. Continue with trazodone 300 mg daily at bedtime for insomnia/mood. -Ativan and Geodon PRN for agitation/aggression -Will review patient's pain medications this patient has severe fibromyalgia. Restarted gabapentin at home dose. -Patient was informed of the risks, benefits and side effects of the medication and patient verbally consented to taking the medications. Patient signed med consent form and was placed in chart. -Internal medicine to complete history and physical on patient. Patient has a history of pneumonia 1 week. Consider infectious disease consult and recommendations for antibiotics?, will await internal medicine recommendations. -NRT - nicotine patch -SW on board for discharge planning
[2019-11-05] MEDS: LEVOFLOXACIN 500 MG TAB PO SCH (17:28)
[2019-11-05] MEDS: ATORVASTATIN 40 MG TAB PO SCH (21:05)
[2019-11-05] MEDS: MONTELUKAST 10 MG TAB PO SCH (21:05)
[2019-11-05] MEDS: traZODone HCL 100 MG TAB PO SCH (21:05)
[2019-11-05] MEDS: MELATONIN 5 MG TABLET PO SCH (21:05)
[2019-11-06] MEDS: BENZOCAINE/MENTHOL LOZENG 1 EACH LOZENGE MUCOUS MEM PRN ×2 (03:55→07:47)
[2019-11-06] MEDS: ALBUTEROL INHALER 60 PUFF/8 GM INHALER INHALATION PRN (07:46)
[2019-11-06] MEDS: NICOTINE 14MG/24HR PATCH TRANSDERM SCH (09:08)
[2019-11-06] MEDS: GABAPENTIN 300 MG CAP PO SCH ×3 (09:10→21:41)
[2019-11-06] MEDS: CHOLECALCIFEROL 1,000 UNIT TAB PO SCH (09:10)
[2019-11-06] MEDS: ASPIRIN 81 MG PO SCH (09:10)
[2019-11-06] MEDS: amLODIPine 10 MG TAB PO SCH (09:11)
[2019-11-06] MEDS: buPROPion SR 100 MG TABLET.ER PO SCH (09:11)
[2019-11-06] MEDS: CYANOCOBALAMIN 500 MCG TAB PO SCH (09:11)
[2019-11-06] MEDS: DULoxetine HCL 60 MG CAPSULE.DR PO SCH ×2 (09:11→21:42)
[2019-11-06] MEDS: PYRIDOXINE 50 MG TAB PO SCH (09:12)
[2019-11-06] MEDS: FOLIC ACID 1 MG TAB PO SCH (09:12)
[2019-11-06] MEDS: BUDESONIDE 0.5 MG/2 ML NEBU INHALATION SCH ×2 (10:51→19:08)
[2019-11-06] MEDS: IPRATROPIUM-ALBUTEROL 3 ML NEB INHALATION SCH ×3 (10:52→19:08)
--- NOTE | 2019-11-06 12:02 | P.PN ---
Progress Note - Text Progress Note Date: 11/06/19 Interval History: Patient was seen taking part in group this afternoon and was directable and ag reeable to speak to her in the office. Patient states that she was doing a crossword puzzle and was enjoying being in group. She states that she was feeling "very overwhelmed" on Wednesday and states that she was trying to pay bills with the social welfare administrator in the office however was not able to do it at that time however states that she's been on the medications and feels like she has been progressing mildly. She states that her mood continues to be depressed and reports mild anxiety. She states that the Wellbutrin has been helping her with her energy level. Patient was preoccupied with her medical conditions including being recently diagnosed with COPD and also pneumonia and states that she is now on a different antibiotic. Patient also asked to have the x-ray reviewed again with her on her chest. Patient claims that she is coughing last and feels less short of breath. She states that she is sleeping better at night however has been having some interruptions in her sleep. She claims that her energy level has been mildly improving. At this time patient denies any suicidal or homical ideations, intent or plan. Patient denies any auditory, visual hallucinations and denies any paranoia or delusions. Patient denies any side effects from the medications and has been compliant with meds. Mental Status Exam: General Appearance: Patient appears to be stated age is alert, more directable and attempts to cooperate. Marginal hygiene and grooming. Less tearful today. Behavior: Patient is calmly seated without any agitated behavior. This tearful today. Speech: Patient's speech is fluent and nonpressured. Tends to cooperate Mood/Affect: Patient reports their mood is depressed, mildly improving, affect is congruent Suicidality/Homicidality: Patient denies having any suicidal or homicidal ideation intent or plan. Perceptions: Patient denies any auditory or visual hallucinations. Though content/process: There is no evidence of any delusional thought content and thought process is linear and goal-directed. Preoccupied with her medications and her medical condition. Excessive worrying. Memory and concentration: AOX3, grossly intact for the purposes of this session. Judgment and insight: poor, mildly improving Assessment Major depressive disorder, without psychotic features Nicotine dependence Plan: -Patient continues to meet criteria for inpatient psychiatric admission for symptom stabilization and safety. Patient has signed adult voluntary form and medication consent and was placed in patient's chart. -Medications: Continue with Cymbalta 60 mg twice a day for mood/pain, increased Wellbutrin 150 mg SR for mood adjunct with plan to titrate up as needed. Increased melatonin to 10 mg nightly for sleep. Continue his trazodone 300 mg daily at bedtime for insomnia/mood -When necessary Ativan and Geodon for agitation/aggression. -Review chest x-ray with patient on admission which showed evidence of pneumonia. Patient is currently on Levaquin antibiotic and shortness of breath has been improving. Vital signs reviewed. -NRT - nicotine patch -SW on board for discharge planning.
[2019-11-06] MEDS ORDERED: ALBUTEROL NEBULIZED 2.5 MG/3 ML INHALATION ONE (14:58)
[2019-11-06] MEDS: LEVOFLOXACIN 500 MG TAB PO SCH (17:19)
[2019-11-06] MEDS: ATORVASTATIN 40 MG TAB PO SCH (21:41)
[2019-11-06] MEDS: MELATONIN 5 MG TABLET PO SCH (21:41)
[2019-11-06] MEDS: MONTELUKAST 10 MG TAB PO SCH (21:42)
[2019-11-06] MEDS: traZODone HCL 100 MG TAB PO SCH (21:42)
[2019-11-07] MEDS: ALBUTEROL INHALER 60 PUFF/8 GM INHALER INHALATION PRN (02:02)
[2019-11-07] MEDS: BENZOCAINE/MENTHOL LOZENG 1 EACH LOZENGE MUCOUS MEM PRN ×2 (04:01→20:10)
[2019-11-07] MEDS: BUDESONIDE 0.5 MG/2 ML NEBU INHALATION SCH ×2 (05:57→16:55)
[2019-11-07] MEDS: IPRATROPIUM-ALBUTEROL 3 ML NEB INHALATION SCH ×3 (05:57→16:54)
[2019-11-07] MEDS: FOLIC ACID 1 MG TAB PO SCH (09:05)
[2019-11-07] MEDS: PYRIDOXINE 50 MG TAB PO SCH (09:05)
[2019-11-07] MEDS: CHOLECALCIFEROL 1,000 UNIT TAB PO SCH (09:05)
[2019-11-07] MEDS: buPROPion SR 150 MG TABLET.ER PO SCH (09:05)
[2019-11-07] MEDS: amLODIPine 10 MG TAB PO SCH (09:06)
[2019-11-07] MEDS: ASPIRIN 81 MG PO SCH (09:06)
[2019-11-07] MEDS: NICOTINE 14MG/24HR PATCH TRANSDERM SCH (09:06)
[2019-11-07] MEDS: DULoxetine HCL 60 MG CAPSULE.DR PO SCH ×2 (09:06→21:50)
[2019-11-07] MEDS: GABAPENTIN 300 MG CAP PO SCH ×3 (09:06→21:50)
[2019-11-07] MEDS: CYANOCOBALAMIN 500 MCG TAB PO SCH (09:06)
--- NOTE | 2019-11-07 12:11 | P.PN ---
Progress Note - Text Progress Note Date: 11/07/19 Interval History: Patient was seen wandering always and was directable and agreeable to speak to her in the office. Patient states that she is gradually improving with regards to her mood however claims that she is still feeling guilty and depressed at times. She states that she is interacting with other patients on the unit and making some friends. Patient claims that she does have some emotional lability however it is gradually improving. Patient states that her shortness of breath has been getting better on the antibiotics and states that she did see a medical doctor today who spoke with her about another chest x-ray. Patient states the appetite is fair and energy level is fair. Patient states that she had a difficult time sleeping last night due to her coughing. Patient spoke about being enrolled in an being hesitant about her prolonged exposure therapy with her [facility] therapist to confront her traumas in the past and her PTSD symptoms. At this time patient denies any suicidal or homical ideations, intent or plan. Patient denies any auditory, visual hallucinations and denies any paranoia or delusions. Patient denies any side effects from the medications and has been compliant with meds. Mental Status Exam: General Appearance: Patient appears to be stated age is alert, more directable and attempts to cooperate. Marginal hygiene and grooming. Less tearful today. Behavior: Patient is calmly seated without any agitated behavior. Speech: Patient's speech is fluent and nonpressured. Attempts to cooperate Mood/Affect: Patient reports their mood is depressed/guilty, mildly improving, affect is congruent Suicidality/Homicidality: Patient denies having any suicidal or homicidal ideation intent or plan. Perceptions: Patient denies any auditory or visual hallucinations. Though content/process: There is no evidence of any delusional thought content and thought process is linear and goal-directed. Preoccupied with her medications and her medical condition. Memory and concentration: AOX3, grossly intact for the purposes of this session. Judgment and insight: poor, mildly improving Assessment Major depressive disorder, without psychotic features Nicotine dependence Plan: -Patient continues to meet criteria for inpatient psychiatric admission for s ymptom stabilization and safety. Patient has signed adult voluntary form and medication consent and was placed in patient's chart. -Medications: Continue with Cymbalta 60 mg twice a day for mood/pain, continue with Wellbutrin 150 mg SR for mood adjunct with plan to titrate up as needed. Continue with melatonin to 10 mg nightly for sleep. Continue trazodone 300 mg daily at bedtime for insomnia/mood -When necessary Ativan and Geodon for agitation/aggression. -Chest x-ray with patient on admission which showed evidence of pneumonia. Patient is currently on Levaquin antibiotic and shortness of breath has been improving. Vital signs reviewed. -NRT - nicotine patch -SW on board for discharge planning. Likely discharge in 1-2 days.
[2019-11-07] MEDS: LEVOFLOXACIN 500 MG TAB PO SCH (18:44)
[2019-11-07] MEDS: ATORVASTATIN 40 MG TAB PO SCH (21:50)
[2019-11-07] MEDS: MELATONIN 5 MG TABLET PO SCH (21:50)
[2019-11-07] MEDS: traZODone HCL 100 MG TAB PO SCH (21:52)
[2019-11-07] MEDS: MONTELUKAST 10 MG TAB PO SCH (21:52)
[2019-11-08] MEDS: BUDESONIDE 0.5 MG/2 ML NEBU INHALATION SCH ×2 (08:56→19:07)
[2019-11-08] MEDS: IPRATROPIUM-ALBUTEROL 3 ML NEB INHALATION SCH ×3 (08:56→19:07)
[2019-11-08] MEDS: NICOTINE 14MG/24HR PATCH TRANSDERM SCH (09:38)
[2019-11-08] MEDS: amLODIPine 10 MG TAB PO SCH (09:39)
[2019-11-08] MEDS: FOLIC ACID 1 MG TAB PO SCH (09:40)
[2019-11-08] MEDS: DULoxetine HCL 60 MG CAPSULE.DR PO SCH ×2 (09:40→21:03)
[2019-11-08] MEDS: CHOLECALCIFEROL 1,000 UNIT TAB PO SCH (09:40)
[2019-11-08] MEDS: ASPIRIN 81 MG PO SCH (09:40)
[2019-11-08] MEDS: CYANOCOBALAMIN 500 MCG TAB PO SCH (09:40)
[2019-11-08] MEDS: buPROPion SR 150 MG TABLET.ER PO SCH (09:40)
[2019-11-08] MEDS: PYRIDOXINE 50 MG TAB PO SCH (09:41)
[2019-11-08] MEDS: GABAPENTIN 300 MG CAP PO SCH ×3 (09:41→21:03)
--- NOTE | 2019-11-08 12:23 | P.PN ---
Progress Note - Text Progress Note Date: 11/08/19 Interval History: Patient was seen wandering always and was directable and agreeable to speak to her in the office. Patient states that she is feeling guilty and when asked to explain more she elaborated and stated that she feels that she is getting a lot of help from different people from [facility] and even in the hospital to help her and states that "I shouldn't need this much help". Patient claims that she didn't speak to her skilled nursing case manager from [facility] who is helping her with clothes and food items and other resources that she needed which patient is grateful for. She states that her mood is gradually improving and states that she is feeling less labile. Patient claims that she is interacting with other people and trying to go to groups. She states that her concentration lacks at times and has been trying to do word searches to help her with it. Patient states the appetite is fair and energy level is fair. Patient states that she slept mildly better last night and has been having less coughing. At this time patient denies any suicidal or homical ideations, intent or plan. Patient denies any auditory, visual hallucinations and denies any paranoia or delusions. Patient denies any side effects from the medications and has been compliant with meds. Mental Status Exam: General Appearance: Patient appears to be stated age is alert, more directable and attempts to cooperate. Marginal hygiene and grooming. Less tearful today. Behavior: Patient is calmly seated without any agitated behavior. Speech: Patient's speech is fluent and nonpressured. Attempts to cooperate Mood/Affect: Patient reports their mood is depressed/guilty, mildly improving, affect is congruent Suicidality/Homicidality: Patient denies having any suicidal or homicidal ideation intent or plan. Perceptions: Patient denies any auditory or visual hallucinations. Though content/process: There is no evidence of any delusional thought content and thought process is linear and goal-directed. Preoccupied with her medications and her medical condition. Memory and concentration: AOX3, grossly intact for the purposes of this session. Judgment and insight: poor, mildly improving Assessment Major depressive disorder, without psychotic features Nicotine dependence Plan: -Patient continues to meet criteria for inpatient psychiatric admission for symptom stabilization and safety. Patient has signed adult voluntary form and medication consent and was placed in patient's chart. -Medications: Continue with Cymbalta 60 mg twice a day for mood/pain, increased Wellbutrin 200 mg SR for mood adjunct with plan to titrate up as needed. Continue with melatonin to 10 mg nightly for sleep. Continue trazodone 300 mg daily at bedtime for insomnia/mood -When necessary Ativan and Geodon for agitation/aggression. -Chest x-ray with patient on admission which showed evidence of pneumonia. Patient is currently on Levaquin antibiotic and shortness of breath has been improving. Vital signs reviewed. -NRT - nicotine patch - on board for discharge planning. Likely discharge in 1-2 days back home with [facility] follow-up.
[2019-11-08] MEDS: LEVOFLOXACIN 500 MG TAB PO SCH (16:51)
[2019-11-08] MEDS: MONTELUKAST 10 MG TAB PO SCH (21:03)
[2019-11-08] MEDS: MELATONIN 5 MG TABLET PO SCH (21:03)
[2019-11-08] MEDS: traZODone HCL 100 MG TAB PO SCH (21:03)
[2019-11-08] MEDS: ATORVASTATIN 40 MG TAB PO SCH (21:03)
[2019-11-08] MEDS: BENZOCAINE/MENTHOL LOZENG 1 EACH LOZENGE MUCOUS MEM PRN (21:07)
[2019-11-09] MEDS: BENZOCAINE/MENTHOL LOZENG 1 EACH LOZENGE MUCOUS MEM PRN (00:23)
[2019-11-09] MEDS: NICOTINE 14MG/24HR PATCH TRANSDERM SCH (08:58)
[2019-11-09] MEDS: amLODIPine 10 MG TAB PO SCH (08:59)
[2019-11-09] MEDS: ASPIRIN 81 MG PO SCH (08:59)
[2019-11-09] MEDS: DULoxetine HCL 60 MG CAPSULE.DR PO SCH ×2 (09:00→21:01)
[2019-11-09] MEDS: CHOLECALCIFEROL 1,000 UNIT TAB PO SCH (09:00)
[2019-11-09] MEDS: FOLIC ACID 1 MG TAB PO SCH (09:00)
[2019-11-09] MEDS: CYANOCOBALAMIN 500 MCG TAB PO SCH (09:00)
[2019-11-09] MEDS: buPROPion SR 100 MG TABLET.ER PO SCH (09:00)
[2019-11-09] MEDS: PYRIDOXINE 50 MG TAB PO SCH (09:01)
[2019-11-09] MEDS: GABAPENTIN 300 MG CAP PO SCH ×3 (09:01→21:03)
[2019-11-09] MEDS: BUDESONIDE 0.5 MG/2 ML NEBU INHALATION SCH ×2 (10:06→21:55)
[2019-11-09] MEDS: IPRATROPIUM-ALBUTEROL 3 ML NEB INHALATION SCH ×3 (10:06→21:55)
--- NOTE | 2019-11-09 11:17 | P.PN ---
Progress Note - Text Progress Note Date: 11/09/19 Interval History: Patient was seen wandering always and was directable and agreeable to speak to sba underwriter in the office. Patient states that she is feeling better today and claims that her mood swings have been improving. She states that she is feeling less guilty and more positive about her future. Patient states that she has been going to groups however has been finding it difficult to concentrate at times and asked if her medications will help her with that. Patient explained about her home situation how she has been with minimal clothes and how [facility] embedded case manager will be helping her with this and was requesting help to clean her house. She states that her mood is gradually improving and states that she is feeling less labile. Patient states the appetite is fair and energy level is fair. Patient states that she slept mildly better last night and denies any significant overnight events. At this time patient denies any suicidal or homical ideations, intent or plan. Patient denies any auditory, visual hallucinations and denies any paranoia or delusions. Patient denies any side e ffects from the medications and has been compliant with meds. Mental Status Exam: General Appearance: Patient appears to be stated age is alert, more directable and attempts to cooperate. Improving hygiene and grooming. Behavior: Patient is calmly seated without any agitated behavior. Speech: Patient's speech is fluent and nonpressured. Attempts to cooperate Mood/Affect: Patient reports their mood is improving mildly, affect is congruent Suicidality/Homicidality: Patient denies having any suicidal or homicidal ideation intent or plan. Perceptions: Patient denies any auditory or visual hallucinations. Though content/process: There is no evidence of any delusional thought content and thought process is linear and goal-directed. Preoccupied with her medications and her medical condition. Memory and concentration: AOX3, grossly intact for the purposes of this session. Judgment and insight: mildly improving Assessment Major depressive disorder, without psychotic features Nicotine dependence Plan: -Patient continues to meet criteria for inpatient psychiatric admission for symptom stabilization and safety. Patient has signed adult voluntary form and medication consent and was placed in patient's chart. -Medications: Continue with Cymbalta 60 mg twice a day for mood/pain, continue with Wellbutrin 200 mg SR for mood adjunct. Continue with melatonin to 10 mg nightly for sleep. Continue trazodone 300 mg daily at bedtime for insomnia/mood -When necessary Ativan and Geodon for agitation/aggression. -Chest x-ray with patient on admission which showed evidence of pneumonia. Had been on Levaquin antibiotic and shortness of breath has been improving. Vital signs reviewed. -NRT - nicotine patch -SW on board for discharge planning. Likely discharge tomorrow back home with [facility] follow-up.
[2019-11-09] MEDS ORDERED: guaiFENesin-DM 100-10MG/5ML 10 ML CUP PO PRN (16:44)
[2019-11-09] MEDS: LEVOFLOXACIN 500 MG TAB PO SCH (18:50)
--- NOTE | 2019-11-09 20:07 | XR ---
EXAMINATION TYPE: XR chest 2V DATE OF EXAM: 11/09/2019 COMPARISON: 10/26/2019 INDICATION: Cough TECHNIQUE: Frontal and lateral views of the chest are obtained. FINDINGS: The heart size is normal. The pulmonary vasculature is normal. The lungs are clear. Previous right upper lobe infiltrate is not evident. IMPRESSION: 1. No acute pulmonary process.
[2019-11-09] MEDS: ATORVASTATIN 40 MG TAB PO SCH (21:01)
[2019-11-09] MEDS: MELATONIN 5 MG TABLET PO SCH (21:01)
[2019-11-09] MEDS: traZODone HCL 100 MG TAB PO SCH (21:02)
[2019-11-09] MEDS: MONTELUKAST 10 MG TAB PO SCH (21:03)
[2019-11-09 22:44] LABS: Calcium 9.7 mg/dL (8.4-10.2); Potassium 4.2 mmol/L (3.5-5.1)
[2019-11-09 23:41] LABS: Basophils % (A) 1 %; Eosinophils # (A) 0.3 k/uL (0-0.7); Eosinophils % (A) 4 %; HCT 35.6 % (34.0-46.0); Lymphocytes # (A) 3.1 k/uL (1.0-4.8); Lymphocytes % (A) 48 %; MCH 32.2 pg (25.0-35.0); MCHC 33.6 g/dL (31.0-37.0); MCV 95.7 fL (80.0-100.0); Mean Platelet Volume 7.8; Monocytes # (A) 0.5 k/uL (0-1.0); Monocytes % (A) 8 %; Neutrophils # (A) 2.4 k/uL (1.3-7.7); Neutrophils % (A) 38 %; Platelet Count 198 k/uL (150-450); RBC 3.72 m/uL (3.80-5.40); RDW 13.2 % (11.5-15.5); WBC 6.4 k/uL (3.8-10.6)
[2019-11-10] MEDS: BENZOCAINE/MENTHOL LOZENG 1 EACH LOZENGE MUCOUS MEM PRN (01:49)
[2019-11-10 06:42] VITALS: BP 114/74; RESP 18; TEMP 98.2
[2019-11-10] MEDS: NICOTINE 14MG/24HR PATCH TRANSDERM SCH (08:55)
[2019-11-10] MEDS: buPROPion SR 100 MG TABLET.ER PO SCH (08:56)
[2019-11-10] MEDS: ASPIRIN 81 MG PO SCH (08:56)
[2019-11-10] MEDS: amLODIPine 10 MG TAB PO SCH (08:56)
[2019-11-10] MEDS: CHOLECALCIFEROL 1,000 UNIT TAB PO SCH (08:56)
[2019-11-10] MEDS: CYANOCOBALAMIN 500 MCG TAB PO SCH (08:56)
[2019-11-10] MEDS: PYRIDOXINE 50 MG TAB PO SCH (08:57)
[2019-11-10] MEDS: GABAPENTIN 300 MG CAP PO SCH (08:57)
[2019-11-10] MEDS: FOLIC ACID 1 MG TAB PO SCH (08:57)
[2019-11-10] MEDS: DULoxetine HCL 60 MG CAPSULE.DR PO SCH (08:57)
[2019-11-10] MEDS: BUDESONIDE 0.5 MG/2 ML NEBU INHALATION SCH (09:03)
[2019-11-10] MEDS: IPRATROPIUM-ALBUTEROL 3 ML NEB INHALATION SCH (09:03)
[2019-11-10 09:19] VITALS: PULSE 96
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
[2019-11-10 13:01] VITALS: BMI 20.7
== END 2019-11-10 15:00 | disposition home or self-care (01) | DRG 881 ==
LOC: EC 20:15 → 3MHU 11-03 01:58
PROVIDERS: ADMIT Psychiatry & Neurology Psychiatry; ATTEND Psychiatry & Neurology Psychiatry
DX: F32.9 Major depressive disorder, single episode, unspecified (principal); J44.1 Chronic obstructive pulmonary disease with (acute) exacerbation; R45.851 Suicidal ideations; Z63.4 Disappearance and death of family member; Z62.810 Personal history of physical and sexual abuse in childhood; I10 Essential (primary) hypertension; Z87.01 Personal history of pneumonia (recurrent); F43.10 Post-traumatic stress disorder, unspecified; F17.210 Nicotine dependence, cigarettes, uncomplicated; G47.00 Insomnia, unspecified; M79.7 Fibromyalgia; Z79.82 Long term (current) use of aspirin; Z79.899 Other long term (current) drug therapy; Z80.49 Family history of malignant neoplasm of other genital organs; Z87.442 Personal history of urinary calculi; Z90.710 Acquired absence of both cervix and uterus; Z90.49 Acquired absence of other specified parts of digestive tract; Z60.2 Problems related to living alone; M19.90 Unspecified osteoarthritis, unspecified site
CPT/HCPCS: 71046; 80048; 80053; 80061; 80306; 81001; 82075; 82248; 83036; 84145; 84443; 85025; 87086; 94640; 99285

== ENCOUNTER 2019-12-19 18:36 | Inpatient (IN) | payer MEDICARE, OTHER ==
[2019-12-19] MEDS ORDERED: ACETAMINOPHEN TAB 500 MG TAB PO STA (20:01)
[2019-12-19] MEDS ORDERED: IPRATROPIUM-ALBUTEROL 3 ML NEB INHALATION STA (20:02)
--- NOTE | 2019-12-19 20:06 | ED ---
General Adult HPI - General Chief complaint: Shortness of Breath Stated complaint: Cough Time Seen by Provider: 12/19/19 19:52 Source: patient, RN notes reviewed Mode of arrival: ambulatory Limitations: no limitations - History of Present Illness Initial comments: Patient is a pleasant 54-year-old female presenting to the emergency Department with complaints of cough and dyspnea. Symptoms started 3 days ago. Patient did see her doctor and was advised come to the hospital. Patient has been having subjective fevers at home. Cough is dry nonproductive. Patient does have history of dyspnea previously associated with COPD. No leg pain or leg swelling. - Related Data Home Medications Medication Instructions Recorded Confirmed Cholecalciferol [Vitamin D3 (25 1,000 unit PO DAILY 01/24/18 11/03/19 Mcg = 1000 Iu)] Cyanocobalamin (Vitamin B-12) 1,000 mcg PO DAILY 01/24/18 11/03/19 [Vitamin B-12] Gabapentin [Neurontin] 300 mg PO TID 01/24/18 11/03/19 [place]-3 Fatty Acids/Fish Oil [Fish 1 cap PO DAILY 01/24/18 11/03/19 Oil 1,000 mg Softgel] Pyridoxine [Vitamin B-6] 50 mg PO DAILY 01/24/18 11/03/19 Previous Rx's Medication Instructions Recorded Aspirin 81 mg PO DAILY #30 tab 01/25/18 Atorvastatin [Lipitor] 40 mg PO DAILY #30 tab 01/25/18 Albuterol Inhaler [Ventolin Hfa 1 - 2 puff INHALATION RT-Q6H PRN 7 10/26/19 Inhaler] Days #1 inhaler Acetaminophen Tab [Tylenol] 650 mg PO Q4HR PRN tab 11/10/19 Benzocaine/Menthol Lozeng [Cepacol 1 each MUCOUS MEM Q4HR PRN 28 Days 11/10/19 lozenge] lozenge Budesonide [Pulmicort] 0.5 mg INHALATION RT-BID #2 nebu 11/10/19 DULoxetine HCL [Cymbalta] 60 mg PO BID #28 capsule. 11/10/19 Folic Acid 0.5 mg PO DAILY tab 11/10/19 Ipratropium-Albuterol Nebulize 3 ml INHALATION RT-TID #2 ampul.neb 11/10/19 [Duoneb 0.5 mg-3 mg/3 ml Soln] Melatonin 10 mg PO HS 28 Days tablet 11/10/19 Montelukast [Singulair] 10 mg PO HS 28 Days tab 11/10/19 Nicotine 14Mg/24Hr Patch [Habitrol] 1 patch TRANSDERM DAILY 28 Days 11/10/19 patch amLODIPine [Norvasc] 10 mg PO DAILY 28 Days tab 11/10/19 buPROPion SR [Wellbutrin SR] 200 mg PO DAILY 28 Days tablet.er 11/10/19 guaiFENesin-DM 100-10MG/5ML 10 ml PO Q6H PRN #1 bottle 11/10/19 [Robitussin DM] traZODone HCL 300 mg PO HS 28 Days tab 11/10/19 Allergies Allergy/AdvReac Type Severity Reaction Status Date / Time No Known Allergies Allergy Verified 11/02/19 20:26 Review of Systems ROS Statement: Those systems with pertinent positive or pertinent negative responses have been documented in the HPI. ROS Other: All systems not noted in ROS Statement are negative. Constitutional: Reports: as per HPI, fever, chills Eyes: Denies: eye pain ENT: Reports: congestion Respiratory: Reports: cough, dyspnea Cardiovascular: Denies: palpitations Endocrine: Denies: fatigue Gastrointestinal: Denies: abdominal pain Genitourinary: Denies: dysuria Musculoskeletal: Denies: back pain Skin: Denies: rash Neurological: Denies: weakness Past Medical History Past Medical History: COPD, Fibromyalgia, Hypertension, Osteoarthritis (OA) Additional Past Medical History / Comment(s): degenerative disc disease History of Any Multi-Drug Resistant Organisms: None Reported Past Surgical History: Appendectomy, Hernia Repair, Hysterectomy Additional Past Surgical History / Comment(s): total hysterectomy, navel hernia repair Past Anesthesia/Blood Transfusion Reactions: No Reported Reaction Past Psychological History: Depression Smoking Status: Current every day smoker - Past Family History Mother Family Medical History: Cancer Additional Family Medical History / Comment(s): cervical cancer Father Family Medical History: No Reported History Additional Family Medical History / Comment(s): "he was killed" General Exam Limitations: no limitations General appearance: alert, in no apparent distress Head exam: Present: normocephalic Eye exam: Present: normal appearance, PERRL ENT exam: Present: normal oropharynx Neck exam: Present: normal inspection Respiratory exam: Present: wheezes, rhonchi Cardiovascular Exam: Present: regular rate, normal rhythm GI/Abdominal exam: Present: soft. Absent: tenderness Extremities exam: Present: normal inspection. Absent: pedal edema, calf tenderness Neurological exam: Present: alert Psychiatric exam: Present: normal affect, normal mood Skin exam: Present: normal color Course Vital Signs 12/19/19 12/19/19 19:32 20:16 Temperature 99.8 F H Pulse Rate 94 100 Respiratory 18 Rate Blood Pressure 142/80 O2 Sat by Pulse 100 Oximetry EKG Findings - EKG Comments: EKG Findings:: Normal sinus rhythm 91. SC 146. QRS 108. QT 364. QTC 447. Normal axis. Incomplete right bundle-branch block. No acute ST change. Medical Decision Making - Medical Decision Making Patient reevaluated and does not feel much better. Patient updated on results and plan. Case discussed with Dr. Murphy, who will admit covering for Dr. Gil. Patient does not meet sepsis criteria at this time. - Lab Data Lab Results 12/19/19 Range/Units 14:37 Influenza Type A RNA Not Detected (Not Detectd) Influenza Type B (PCR) Not Detected (Not Detectd) - Radiology Data Radiology results: image reviewed Disposition Clinical Impression: Acute exacerbation of chronic obstructive pulmonary disease Disposition: ADMITTED IP TO THIS HOSP Is patient prescribed a controlled substance at d/c from ED?: No Referrals: Calista Gil MD [Primary Care Provider] - 1-2 days Decision Time: 21:09
[2019-12-19] MEDS ORDERED: methylPREDNISolone SOD SUCCI 125 MG/2 ML VIAL IV STA (21:09)
[2019-12-19] MEDS ORDERED: IPRATROPIUM-ALBUTEROL 3 ML NEB INHALATION PRN (21:09)
--- NOTE | 2019-12-19 21:09 | XR ---
EXAMINATION TYPE: XR chest 2V DATE OF EXAM: 12/19/2019 COMPARISON: 11/09/2019 HISTORY: Short of breath TECHNIQUE: FINDINGS: Heart and mediastinum are normal. Lungs are clear. Diaphragm is normal. Bony thorax is inta ct. There are chest leads. IMPRESSION: Normal chest. No change.
[2019-12-19 21:13] LABS: ALT 33 U/L (4-34); AST 48 U/L (14-36); African American GFR (CKD) >90 (>60 ml/min/1.73 sqM); Albumin 5.1 g/dL (3.5-5.0); Alkaline Phosphatase 57 U/L (38-126); Anion Gap 12 mmol/L; Blood Urea Nitrogen 13 mg/dL (7-17); Calcium 10.2 mg/dL (8.4-10.2); Carbon Dioxide 24 mmol/L (22-30); Chloride 101 mmol/L (98-107); Glucose 84 mg/dL (74-99); Non-African American GFR(CKD) 81 (>60 ml/min/1.73 sqM); Potassium 4.1 mmol/L (3.5-5.1); Sodium 137 mmol/L (137-145); Total Bilirubin 0.6 mg/dL (0.2-1.3); Total Protein 8.3 g/dL (6.3-8.2)
[2019-12-19] MEDS: SODIUM CHLORIDE 0.9% 1,000 ML IV SCH (22:21)
[2019-12-19 22:31] LABS: Mucus,Urine Rare /hpf; WBC,Urine <1 /hpf (0-5)
[2019-12-19 22:39] LABS: INR 1.1 (<1.2)
[2019-12-19 22:40] LABS: Basophils % (A) 1 %; Eosinophils # (A) 0.2 k/uL (0-0.7); Eosinophils % (A) 3 %; HCT 37.1 % (34.0-46.0); HGB 12.1 gm/dL (11.4-16.0); Lymphocytes # (A) 2.8 k/uL (1.0-4.8); Lymphocytes % (A) 49 %; MCH 30.1 pg (25.0-35.0); MCHC 32.8 g/dL (31.0-37.0); MCV 91.8 fL (80.0-100.0); Mean Platelet Volume 7.3; Monocytes # (A) 0.3 k/uL (0-1.0); Monocytes % (A) 5 %; Neutrophils # (A) 2.3 k/uL (1.3-7.7); Neutrophils % (A) 40 %; Platelet Count 176 k/uL (150-450); RBC 4.04 m/uL (3.80-5.40); RDW 12.1 % (11.5-15.5); WBC 5.8 k/uL (3.8-10.6)
[2019-12-19 22:40] LABS: Color,Urine Light Yellow
[2019-12-19 22:41] LABS: Appearance,Urine Clear (Clear); Bilirubin,Urine Negative (Negative); Glucose,Urine (UA) Negative (Negative); Ketones,Urine Negative (Negative); Protein,Urine Negative (Negative); Specific Gravity,Urine 1.005 (1.001-1.035)
[2019-12-19 22:42] LABS: Blood,Urine Small (Negative); Leukocyte Esterase,Urine Negative (Negative); Nitrite,Urine Negative (Negative); Urobilinogen,Urine <2.0 mg/dL (<2.0)
[2019-12-19] MEDS ORDERED: ACETAMINOPHEN TAB 325 MG TAB PO PRN (23:03)
[2019-12-19] MEDS: GABAPENTIN 300 MG CAP PO SCH (23:24)
[2019-12-19] MEDS: traZODone HCL 100 MG TAB PO SCH (23:24)
[2019-12-20] MEDS: methylPREDNISolone SOD SUCCI 125 MG/2 ML VIAL IV SCH ×2 (05:53)
[2019-12-20] MEDS: SODIUM CHLORIDE 0.9% 1,000 ML IV SCH ×2 (05:54→07:50)
[2019-12-20] MEDS: amLODIPine 10 MG TAB PO SCH (07:49)
[2019-12-20] MEDS: DULoxetine HCL 60 MG CAPSULE.DR PO SCH (07:49)
[2019-12-20] MEDS: CEFDINIR 300 MG CAP PO SCH ×2 (07:49→20:23)
[2019-12-20] MEDS: GABAPENTIN 300 MG CAP PO SCH ×3 (07:49→22:15)
[2019-12-20] MEDS: ATORVASTATIN 40 MG TAB PO SCH (07:49)
[2019-12-20] MEDS: buPROPion SR 100 MG TABLET.ER PO SCH (07:49)
[2019-12-20] MEDS: ASPIRIN 81 MG PO SCH (07:49)
[2019-12-20] MEDS: IPRATROPIUM-ALBUTEROL 3 ML NEB INHALATION SCH ×4 (08:49→19:13)
[2019-12-20] MEDS: CHOLECALCIFEROL 1,000 UNIT TAB PO SCH (12:57)
[2019-12-20] MEDS: FOLIC ACID 1 MG TAB PO SCH (12:57)
[2019-12-20] MEDS: PYRIDOXINE 50 MG TAB PO SCH (12:57)
--- NOTE | 2019-12-20 13:44 | P.CNPUL ---
History of Present Illness Consult date: 12/20/19 Reason for consult: dyspnea, COPD History of present illness: This is a very pleasant 54-year-old female patient with known history of COPD. The patient is a chronic smoker in she admits to smoke since the age of 89 she quit smoking approximately few weeks back. She was having some respiratory difficulties and recently as she was awoken different stores she got exposed to respiratory irritants or chemicals which made her breathing worsen she end up coming into the hospital because of increased dyspnea cough chest tightness and wheezing. She has not seen a cone picker in the past. She does not utilize oxygen. She has better rescue inhaler to be used only on an as-needed basis. She has a nebulizer at home which she hasn't been using on a regular basis. No history of childhood asthma. No previous hospitalization for COPD related complications. No hemoptysis. No pleurisy. She is currently on room air oxygen. She has history of depression. She has history of degenerative arthritis. She is currently on disability. Her echo from previous evaluation showed an ejection fraction of 55-60%. She has hyperlipidemia. She also has hypertension and fibromyalgia. She is living independently at home and [facility]. Review of Systems Constitutional: Denies chills, Denies fever Eyes: denies as per HPI, denies blurred vision, denies bulging eye, denies d ecreased vision, denies diplopia, denies discharge, denies dry eye, denies irritation, denies itching, denies pain, denies photophobia, denies loss of peripheral vision, denies loss of vision, denies tunnel vision/blind spots Ears: deny: decreased hearing, ear discharge, earache, tinnitus Ears, nose, mouth and throat: Reports as per HPI Breasts: absent: as per HPI, change in shape, gynecomastia, masses, nipple discharge, pain, skin changes, swelling Cardiovascular: Reports dyspnea on exertion Respiratory: Reports cough, Reports dyspnea, Reports wheezing Gastrointestinal: Reports as per HPI Genitourinary: Reports as per HPI Menstruation: Reports as per HPI Musculoskeletal: Reports as per HPI Musculoskeletal: absent: ankle pain, ankle stiffness, ankle swelling Integumentary: Reports as per HPI Neurological: Reports as per HPI Psychiatric: Reports as per HPI, Reports depression Endocrine: Reports as per HPI Hematologic/Lymphatic: Reports as per HPI Allergic/Immunologic: Reports as per HPI Past Medical History Past Medical History: COPD, Fibromyalgia, Hypertension, Osteoarthritis (OA) Additional Past Medical History / Comment(s): degenerative disc disease History of Any Multi-Drug Resistant Organisms: None Reported Past Surgical History: Appendectomy, Hernia Repair, Hysterectomy Additional Past Surgical History / Comment(s): total hysterectomy, umbilical hernia repair Past Anesthesia/Blood Transfusion Reactions: No Reported Reaction Past Psychological History: Depression Additional Psychological History / Comment(s): pt stated "i am well controlled by the meds i take" Smoking Status: Current every day smoker Past Alcohol Use History: None Reported Additional Past Alcohol Use History / Comment(s): started at age 9 smokes 1/2 ppd Past Drug Use History: None Reported - Past Family History Mother Family Medical History: Cancer Additional Family Medical History / Comment(s): cervical cancer Father Family Medical History: No Reported History Additional Family Medical History / Comment(s): "he was killed" Medications and Allergies Home Medications Medication Instructions Recorded Confirmed Type Cholecalciferol [Vitamin D3 (25 1,000 unit PO DAILY 01/24/18 12/19/19 History Mcg = 1000 Iu)] Cyanocobalamin (Vitamin B-12) 1,000 mcg PO DAILY 01/24/18 12/19/19 History [Vitamin B-12] Gabapentin [Neurontin] 300 mg PO TID 01/24/18 12/19/19 History [place]-3 Fatty Acids/Fish Oil [Fish 1 cap PO DAILY 01/24/18 12/19/19 History Oil 1,000 mg Softgel] Pyridoxine [Vitamin B-6] 50 mg PO DAILY 01/24/18 12/19/19 History Aspirin 81 mg PO DAILY #30 tab 01/25/18 12/19/19 Rx Atorvastatin [Lipitor] 40 mg PO DAILY #30 tab 01/25/18 12/19/19 Rx Albuterol Inhaler [Ventolin Hfa 1 - 2 puff INHALATION RT-Q6H PRN 7 10/26/19 12/19/19 Rx Inhaler] Days #1 inhaler Acetaminophen Tab [Tylenol] 650 mg PO Q4HR PRN tab 11/10/19 12/19/19 Rx Budesonide [Pulmicort] 0.5 mg INHALATION RT-BID #2 nebu 11/10/19 12/19/19 Rx DULoxetine HCL [Cymbalta] 60 mg PO BID #28 capsule. 11/10/19 12/19/19 Rx Folic Acid 0.5 mg PO DAILY tab 11/10/19 12/19/19 Rx Ipratropium-Albuterol Nebulize 3 ml INHALATION RT-TID #2 ampul.neb 11/10/19 12/19/19 Rx [Duoneb 0.5 mg-3 mg/3 ml Soln] amLODIPine [Norvasc] 10 mg PO DAILY 28 Days tab 11/10/19 12/19/19 Rx buPROPion SR [Wellbutrin SR] 200 mg PO DAILY 28 Days tablet.er 11/10/19 12/19/19 Rx traZODone HCL 300 mg PO HS 28 Days tab 11/10/19 12/19/19 Rx Allergies Allergy/AdvReac Type Severity Reaction Status Date / Time No Known Allergies Allergy Verified 12/19/19 22:32 Physical Exam Vitals: Vital Signs Temp Pulse Pulse Resp BP BP Pulse Ox 12/20/19 12:21 92 12/20/19 12:08 90 12/20/19 11:32 98 F 91 20 121/69 98 12/20/19 09:02 88 12/20/19 08:49 88 12/20/19 05:00 98 F 77 16 103/62 97 12/20/19 00:00 18 12/19/19 22:50 97.9 F 83 18 123/77 99 12/19/19 22:31 89 19 100 12/19/19 22:22 89 20 132/78 100 12/19/19 20:16 100 12/19/19 19:32 99.8 F H 94 18 142/80 100 Intake and Output 12/19/19 12/20/19 12/20/19 22:59 06:59 14:59 Intake Total 800 1090 Balance 800 1090 Intake: Intake, IV Titration 200 850 Amount Sodium Chloride 0.9% 1, 200 800 000 ml @ 100 mls/hr IV . Q10H RAFAEL Rx#:[id number] cefTRIAXone 1 gm In 50 Sodium Chloride 0.9% 50 ml @ 100 mls/hr IVPB ONCE STA Rx#:[id number] Oral 600 240 Other: # Voids 1 1 Weight 66.224 kg The patient appeared well nourished and normally developed. Vital signs as documented. Head exam is unremarkable. No scleral icterus or corneal arcus no svetlana. Neck is without jugular venous distension, thyromegaly, or carotid bruits. Carotid upstrokes are brisk bilaterally. Lungs diminished breath sounds along with scattered rhonchi and scattered expiratory wheezing especially upon forceful expiratory maneuvers.. Cardiac exam reveals the PMI to be normally sized and situated. Rhythm is regular. First and second heart sounds normal. No murmurs, rubs or gallops. Abdominal exam reveals normal bowel sounds, no masses, no organomegaly and no aortic enlargement. Extremities are nonedematous and both femoral and pedal pulses are normal.Examination of the skin revealed no evidence of significant rashes, suspicious appearing nevi or other concerning lesions. Neurologically awake and alert there is no focal neurological deficits Results - Laboratory Findings CBC and BMP: 12/19/19 22:18 12/19/19 20:50 PT/INR, D-dimer PT 11.0 sec (9.0-12.0) 12/19/19 22:18 INR 1.1 (<1.2) 12/19/19 22:18 Abnormal lab findings: Abnormal Labs 12/19/19 12/19/19 20:50 21:27 AST 48 H Total Protein 8.3 H Albumin 5.1 H Urine Mucus Rare H - Diagnostic Findings Chest x-ray: image reviewed Assessment and Plan Plan: 1 acute COPD exacerbation with secondary shortness of breath. Chest x-ray is free of any acute pulmonary infiltrates 2 chronic smoker 3 depression 4 fibromyalgia 5 hyperlipidemia 6 degenerative arthritis Plan I fully agree on the current treatment plan. The patient on antibiotics and lymphatic coverage. Influenza screen was negative. Continued IV Solu-Medrol. Continue DuoNeb nebulized with [id number]. May need to discharge the patient home on Incruse 62.5 g one inhalation a day, along with Advair Diskus inhaler as-needed basis. Outpatient pulmonary function test is to follow.
[2019-12-20 15:24] VITALS: RESP 16
[2019-12-20] MEDS: methylPREDNISolone SOD SUCCI 40 MG/ML 1 ML VIAL IV SCH ×2 (17:20→23:16)
[2019-12-20] MEDS: traZODone HCL 100 MG TAB PO SCH (20:23)
--- NOTE | 2019-12-20 22:40 | P.HPIM ---
History of Present Illness H&P Date: 12/20/19 Chief Complaint: cough, SOB Janae Sung is a 54 yo F with PMH of COPD, tobacco abuse, fibromyalgia, HTN, HLD who presented to the hospital complaining of worsening cough, shortness of breath and chest tightness. She denies any upper respiratory symptoms, states her cough worsened to the point that she was feeling chest tightness so came in to the hospital. Denies fevers but has felt warm at home. She reports lifelong history of smoking and quit 1 week ago. Pt is not on oxygen and has not seen a highway safety engineer and would like to see one this admission. She reports being compliant with inhalers at home. In the ED vitals were stable, SpO2 100% on RA, WBC 5.8, flu A/B negative, CXR no acute infiltrate. Review of Systems All systems: negative Constitutional: Reports malaise, Reports sweats, Denies chills, Denies fever Eyes: denies blurred vision, denies pain Ears, nose, mouth and throat: Denies headache, Denies sore throat Cardiovascular: Denies chest pain, Denies shortness of breath Respiratory: Reports congestion, Reports cough Gastrointestinal: Denies abdominal pain, Denies diarrhea, Denies nausea, Denies vomiting Genitourinary: Denies dysuria, Denies hematuria Musculoskeletal: Denies myalgias Integumentary: Denies pruritus, Denies rash Neurological: Denies numbness, Denies weakness Psychiatric: Denies anxiety, Denies depression Endocrine: Denies fatigue, Denies weight change Past Medical History Past Medical History: COPD, Fibromyalgia, Hypertension, Osteoarthritis (OA) Additional Past Medical History / Comment(s): degenerative disc disease History of Any Multi-Drug Resistant Organisms: None Reported Past Surgical History: Appendectomy, Hernia Repair, Hysterectomy Additional Past Surgical History / Comment(s): total hysterectomy, umbilical hernia repair Past Anesthesia/Blood Transfusion Reactions: No Reported Reaction Past Psychological History: Depression Additional Psychological History / Comment(s): pt stated "i am well controlled by the meds i take" Smoking Status: Current every day smoker Past Alcohol Use History: None Reported Additional Past Alcohol Use History / Comment(s): started at age 9 smokes 1/2 ppd Past Drug Use History: None Reported - Past Family History Mother Family Medical History: Cancer Additional Family Medical History / Comment(s): cervical cancer Father Family Medical History: No Reported History Additional Family Medical History / Comment(s): "he was killed" Medications and Allergies Home Medications Medication Instructions Recorded Confirmed Type Cholecalciferol [Vitamin D3 (25 1,000 unit PO DAILY 01/24/18 12/19/19 History Mcg = 1000 Iu)] Cyanocobalamin (Vitamin B-12) 1,000 mcg PO DAILY 01/24/18 12/19/19 History [Vitamin B-12] Gabapentin [Neurontin] 300 mg PO TID 01/24/18 12/19/19 History [place]-3 Fatty Acids/Fish Oil [Fish 1 cap PO DAILY 01/24/18 12/19/19 History Oil 1,000 mg Softgel] Pyridoxine [Vitamin B-6] 50 mg PO DAILY 01/24/18 12/19/19 History Aspirin 81 mg PO DAILY #30 tab 01/25/18 12/19/19 Rx Atorvastatin [Lipitor] 40 mg PO DAILY #30 tab 01/25/18 12/19/19 Rx Albuterol Inhaler [Ventolin Hfa 1 - 2 puff INHALATION RT-Q6H PRN 7 10/26/19 12/19/19 Rx Inhaler] Days #1 inhaler Acetaminophen Tab [Tylenol] 650 mg PO Q4HR PRN tab 11/10/19 12/19/19 Rx Budesonide [Pulmicort] 0.5 mg INHALATION RT-BID #2 nebu 11/10/19 12/19/19 Rx DULoxetine HCL [Cymbalta] 60 mg PO BID #28 capsule. 11/10/19 12/19/19 Rx Folic Acid 0.5 mg PO DAILY tab 11/10/19 12/19/19 Rx Ipratropium-Albuterol Nebulize 3 ml INHALATION RT-TID #2 ampul.neb 11/10/19 12/19/19 Rx [Duoneb 0.5 mg-3 mg/3 ml Soln] amLODIPine [Norvasc] 10 mg PO DAILY 28 Days tab 11/10/19 12/19/19 Rx buPROPion SR [Wellbutrin SR] 200 mg PO DAILY 28 Days tablet.er 11/10/19 12/19/19 Rx traZODone HCL 300 mg PO HS 28 Days tab 11/10/19 12/19/19 Rx Allergies Allergy/AdvReac Type Severity Reaction Status Date / Time No Known Allergies Allergy Verified 12/19/19 22:32 Physical Exam Vitals: Vital Signs Temp Pulse Pulse Resp BP BP Pulse Ox 12/20/19 09:02 88 12/20/19 08:49 88 12/20/19 05:00 98 F 77 16 103/62 97 12/20/19 00:00 18 12/19/19 22:50 97.9 F 83 18 123/77 99 12/19/19 22:31 89 19 100 12/19/19 22:22 89 20 132/78 100 12/19/19 20:16 100 12/19/19 19:32 99.8 F H 94 18 142/80 100 Intake and Output 12/19/19 12/20/19 12/20/19 22:59 06:59 14:59 Intake Total 800 1090 Balance 800 1090 Intake: Intake, IV Titration 200 850 Amount Sodium Chloride 0.9% 1, 200 800 000 ml @ 100 mls/hr IV . Q10H RAFAEL Rx#:[id number] cefTRIAXone 1 gm In 50 Sodium Chloride 0.9% 50 ml @ 100 mls/hr IVPB ONCE STA Rx#:[id number] Oral 600 240 Other: # Voids 1 1 Weight 66.224 kg General: well nourished, well developed, NAD. Vitals reviewed Eyes: PERRL, EOMI, conjunctiva normal HENT: normocephalic, mucus membranes moist Neck: supple, no JVD Lungs: normal respiratory effort, wheezing and rhonchi bilateral. No rales CV: Regular rate and rhythm, no murmur. Peripheral pulses 2+ Abdomen: soft, nondistended, no organomegaly Lymph: no cervical or axillary LAD Skin: warm and dry. Neuro: A&Ox3, normal mood and affect Results CBC & Chem 7: 12/19/19 22:18 12/19/19 20:50 Labs: Abnormal Lab Results - Last 24 Hours (Table) 12/19/19 12/19/19 Range/Units 20:50 21:27 AST 48 H (14-36) U/L Total Protein 8.3 H (6.3-8.2) g/dL Albumin 5.1 H (3.5-5.0) g/dL Urine Mucus Rare H (None) /hpf Thrombosis Risk Factor Assmnt - Choose All That Apply Any of the Below Risk Factors Present?: Yes Each Factor Represents 1 point: Abnormal pulmonary function (COPD), Age 41-60 years Other Risk Factors: No Other congenital or acquired thrombophilia - If yes, enter type in comment: No Thrombosis Risk Factor Assessment Total Risk Factor Score: 2 Thrombosis Risk Factor Assessment Level: Low Risk Assessment and Plan (1) Acute exacerbation of chronic obstructive pulmonary disease Current Visit: Yes Status: Acute Code(s): J44.1 - CHRONIC OBSTRUCTIVE PULMONARY DISEASE W (ACUTE) EXACERBATION SNOMED Code(s): 138414117 (2) Dyspnea Current Visit: No Status: Acute Code(s): R06.00 - DYSPNEA, UNSPECIFIED SNOMED Code(s): 345283072 (3) Major 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 COPD exacerbation. Will start pt on IV steroids, give rocephin and transition to po omnicef. Pulmonary consult per pt preference. Duonebs. Discharge planning in progress for tomorrow 2. HTN 3. HLD 4. Major depression
[2019-12-21 05:15] VITALS: BP 122/76; TEMP 98.3
[2019-12-21] MEDS: SODIUM CHLORIDE 0.9% 1,000 ML IV SCH ×2 (06:07→12:18)
[2019-12-21] MEDS: IPRATROPIUM-ALBUTEROL 3 ML NEB INHALATION SCH ×2 (07:18→11:17)
[2019-12-21] MEDS: methylPREDNISolone SOD SUCCI 40 MG/ML 1 ML VIAL IV SCH (07:55)
[2019-12-21] MEDS: CEFDINIR 300 MG CAP PO SCH (07:59)
[2019-12-21] MEDS: DULoxetine HCL 60 MG CAPSULE.DR PO SCH (07:59)
[2019-12-21] MEDS: buPROPion SR 100 MG TABLET.ER PO SCH (07:59)
[2019-12-21] MEDS: amLODIPine 10 MG TAB PO SCH (07:59)
[2019-12-21] MEDS: GABAPENTIN 300 MG CAP PO SCH (07:59)
[2019-12-21] MEDS: ATORVASTATIN 40 MG TAB PO SCH (07:59)
[2019-12-21] MEDS: CHOLECALCIFEROL 1,000 UNIT TAB PO SCH (07:59)
[2019-12-21] MEDS: ASPIRIN 81 MG PO SCH (07:59)
[2019-12-21] MEDS: FOLIC ACID 1 MG TAB PO SCH (08:00)
[2019-12-21] MEDS: PYRIDOXINE 50 MG TAB PO SCH (08:01)
[2019-12-21 11:31] VITALS: PULSE 84
--- NOTE | 2019-12-21 13:00 | P.PN ---
Subjective Progress Note Date: 12/21/19 This is a very pleasant 54-year-old female patient with known history of COPD. The patient is a chronic smoker in she admits to smoke since the age of 89 she quit smoking approximately few weeks back. She was having some respiratory difficulties and recently as she was awoken different stores she got exposed to respiratory irritants or chemicals which made her breathing worsen she end up coming into the hospital because of increased dyspnea cough chest tightness and wheezing. She has not seen a order entry technician in the past. She does not utilize oxygen. She has better rescue inhaler to be used only on an as-needed basis. She has a nebulizer at home which she hasn't been using on a regular basis. No history of childhood asthma. No previous hospitalization for COPD related complications. No hemoptysis. No pleurisy. She is currently on room air oxygen. She has history of depression. She has history of degenerative arthritis. She is currently on disability. Her echo from previous evaluation showed an ejection fraction of 55-60%. She has hyperlipidemia. She also has hypertension and fibromyalgia. She is living independently at home and [facility]. On today's evaluation, the patient is feeling slightly better. Less short of breath compared to yesterday. No hemoptysis. No pleurisy. Raises are being made to discharge the patient home today on a prednisone burst taper. Smoking cessation counseling was done. Outpatient follow-up needs to be done. Objective - Vital Signs Vital signs: Vital Signs Temp 98.3 F 12/21/19 05:00 Pulse 84 12/21/19 11:30 Resp 16 12/21/19 08:00 BP 122/76 12/21/19 05:00 Pulse Ox 99 12/21/19 07:18 Intake & Output 12/20/19 12/21/19 12/21/19 18:59 06:59 18:59 Intake Total 850 740 Balance 850 740 Intake: Intake, IV Titration 850 150 Amount Sodium Chloride 0.9% 1, 800 150 000 ml @ 100 mls/hr IV . Q10H RAFAEL Rx#:[id number] cefTRIAXone 1 gm In 50 Sodium Chloride 0.9% 50 ml @ 100 mls/hr IVPB ONCE STA Rx#:[id number] Oral 590 Other: Voiding Method Toilet Toilet # Voids 2 - Exam The patient appeared well nourished and normally developed. Vital signs as documented. Head exam is unremarkable. No scleral icterus or corneal arcus noted. Neck is without jugular venous distension, thyromegaly, or carotid bruits. Carotid upstrokes are brisk bilaterally. Lungs diminished breath sounds along with scattered rhonchi and scattered expiratory wheezing especially upon forceful expiratory maneuvers.. Cardiac exam reveals the PMI to be normally sized and situated. Rhythm is regular. First and second heart sounds normal. No murmurs, rubs or gallops. Abdominal exam reveals normal bowel sounds, no masses, no organomegaly and no aortic enlargement. Extremities are nonedematous and both femoral and pedal pulses are normal.Examination of the skin revealed no evidence of significant rashes, suspicious appearing nevi or other concerning lesions. Neurologically awake and alert there is no focal neurological deficits - Labs CBC & Chem 7: 12/19/19 22:18 12/19/19 20:50 Labs: Microbiology - Last 24 Hours (Table) 12/19/19 20:50 Blood Culture - Preliminary Blood No Growth after 24 hours Assessment and Plan Plan: 1 acute COPD exacerbation with secondary shortness of breath. Chest x-ray is free of any acute pulmonary infiltrates 2 chronic smoker 3 depression 4 fibromyalgia 5 hyperlipidemia 6 degenerative arthritis Plan Discharge the patient home on DuoNeb nebulized treatments around the clock, due to respiratory inhaler, prednisone burst taper and outpatient follow-up will be done. Smoking cessation was done
--- NOTE | 2019-12-21 15:21 | CDI ---
Documentation Clarification Form Date: 12/21/2019 02:51:18 PM From: Marlene Martins RN, CCDS Phone: [phone] Admit Date: 12/21/2019 08:46:00 AM Patient Name: Janae Sung Visit Number: [id number] Discharge Date: ATTENTION: The Clinical Documentation Specialists (CDI) and [facility] Coding Staff appreciate your assistance in clarifying documentation. Please respond to the clarification below the line at the bottom and electronically sign. The CDI & [facility] Coding staff will review the response and follow-up if needed. Please note: Queries are made part of the Legal Health Record. If you have any questions, please contact the author of this message via ITS. Dr. Asher Nuno Current every day smoker is documented in the smoking status, past medical history Patient history/risk factors: COPD, Hypertension, Depression Clinical Indicators: 54-year-old with known history of COPD. the patient is a chronic smoker and admits to smoking since the age of 9, she quit smoking approximately a few weeks back per Dr. Bal progress notes on 12/20/19. She present to ED on 12/19 with complaints of shortness of breath, cough and dyspnea. Respiratory Exam: 12/20 Dr. Bal: "Lungs diminished breath sounds along with scattered rhonchi and scattered expiratory wheezing especially upon forceful expiratory maneuvers. 12/19 Vital Signs: 142/80 94 18 99.8 100 % Room Air Treatment: Smoking cessation counseling (per Pulmonary) In order to capture the severity of condition, if possible and in your professional opinion, please clarify the following: Abused Substance and specify type of known: Nicotine Other, please specify Unable to determine Type of Substance Disorder: Abuse Dependence Use Unknown Other, please specify (Last Revision: August 2017) Nicotine dependence MTDD
--- NOTE | 2019-12-22 10:37 | P.DS ---
Providers Date of admission: 12/21/19 08:46 Expected date of discharge: 12/21/19 Attending physician: Asher Nuno MD Consults: 12/20/19 09:09 Consult Physician Routine Consulting Provider: Garrett Cullen Reason/Comments: COPD exacerbation Do you want consulting provider notified?: Yes [facility] care [facility] Course: Final Diagnoses: (1) Acute exacerbation of chronic obstructive pulmonary disease Current Visit: Yes Status: Acute Code(s): J44.1 - CHRONIC OBSTRUCTIVE PULMONARY DISEASE W (ACUTE) EXACERBATION SNOMED Code(s): 827316658 (2) Dyspnea Current Visit: No Status: Acute Code(s): R06.00 - DYSPNEA, UNSPECIFIED SNOMED Code(s): 968336033 (3) Major depressive disorder without psychotic features Current Visit: No Status: Acute Priority: High Code(s): F32.9 - MAJOR DEPRESSIVE DISORDER, SINGLE EPISODE, UNSPECIFIED SNOMED Code(s): 888169535 (4) Hypertension (5) hyperlipidemia (6) ongoing nicotine, smoking cessation reinforced Hospital course:Janae Sung is a 54 yo F with PMH of COPD, tobacco abuse, fibromyalgia, HTN, HLD who presented to the hospital complaining of worsening cough, shortness of breath and chest tightness. She denies any upper respiratory symptoms, states her cough worsened to the point that she was feeling chest tightness so came in to the hospital. Denies fevers but has felt warm at home. She reports lifelong history of smoking and quit 1 week ago. Pt is not on oxygen and has not seen a manager pest and would like to see one this admission. She reports being compliant with inhalers at home. In the ED vitals were stable, SpO2 100% on RA, WBC 5.8, flu A/B negative, CXR no acute infiltrate. Evaluated by pulmonology maintained on nebulized bronchodilators, steroids, antibiotics. Significant clinical improvement. Patient is being discharged home in a stable condition with guarded prognosis, pending pulmonary clearance and final DC recommendations. General: Alert and oriented 3 NAD. Lungs: normal respiratory effort, lungs essentially clear, bilateral bases diminished CV: Regular rate and rhythm, no murmur. Peripheral pulses 2+ Abdomen: soft, nondistended, no organomegaly,+BS Neuro: Mood & affect normal, no focal deficits The impression and plan of care has been dictated as directed. : I performed a history and examination of this patient, discussed the same with the dictator. I agree with the dictator's note ,documented as a scribe. Any additional findings or plans will be noted. Patient Condition at Discharge: Stable Plan - Discharge Summary New Discharge Prescriptions: New Cefdinir [Omnicef] 300 mg PO BID #6 cap predniSONE 10 mg PO DIRECTED #30 tab No Action [place]-3 Fatty Acids/Fish Oil [Fish Oil 1,000 mg Softgel] 1 cap PO DAILY Cholecalciferol [Vitamin D3 (25 Mcg = 1000 Iu)] 1,000 unit PO DAILY Pyridoxine [Vitamin B-6] 50 mg PO DAILY Gabapentin [Neurontin] 300 mg PO TID Cyanocobalamin (Vitamin B-12) [Vitamin B-12] 1,000 mcg PO DAILY Aspirin 81 mg PO DAILY #30 tab Atorvastatin [Lipitor] 40 mg PO DAILY #30 tab Albuterol Inhaler [Ventolin Hfa Inhaler] 1 - 2 puff INHALATION RT-Q6H PRN 7 Days #1 inhaler PRN Reason: Wheezing DULoxetine HCL [Cymbalta] 60 mg PO BID #28 capsule. Ipratropium-Albuterol Nebulize [Duoneb 0.5 mg-3 mg/3 ml Soln] 3 ml INHALATION RT-TID #2 ampul.neb Folic Acid 0.5 mg PO DAILY tab amLODIPine [Norvasc] 10 mg PO DAILY 28 Days tab Budesonide [Pulmicort] 0.5 mg INHALATION RT-BID #2 nebu Acetaminophen Tab [Tylenol] 650 mg PO Q4HR PRN tab PRN Reason: Pain/Discomfort buPROPion SR [Wellbutrin SR] 200 mg PO DAILY 28 Days tablet.er traZODone HCL 300 mg PO HS 28 Days tab Discharge Medication List Cholecalciferol [Vitamin D3 (25 Mcg = 1000 Iu)] 1,000 unit PO DAILY 01/24/18 [History] Cyanocobalamin (Vitamin B-12) [Vitamin B-12] 1,000 mcg PO DAILY 01/24/18 [History] Gabapentin [Neurontin] 300 mg PO TID 01/24/18 [History] [place]-3 Fatty Acids/Fish Oil [Fish Oil 1,000 mg Softgel] 1 cap PO DAILY 01/24/18 [History] Pyridoxine [Vitamin B-6] 50 mg PO DAILY 01/24/18 [History] Aspirin 81 mg PO DAILY #30 tab 01/25/18 [Rx] Atorvastatin [Lipitor] 40 mg PO DAILY #30 tab 01/25/18 [Rx] Albuterol Inhaler [Ventolin Hfa Inhaler] 1 - 2 puff INHALATION RT-Q6H PRN 7 Days #1 inhaler 10/26/19 [Rx] Acetaminophen Tab [Tylenol] 650 mg PO Q4HR PRN tab 11/10/19 [Rx] Budesonide [Pulmicort] 0.5 mg INHALATION RT-BID #2 nebu 11/10/19 [Rx] DULoxetine HCL [Cymbalta] 60 mg PO BID #28 capsule.dr 11/10/19 [Rx] Folic Acid 0.5 mg PO DAILY tab 11/10/19 [Rx] Ipratropium-Albuterol Nebulize [Duoneb 0.5 mg-3 mg/3 ml Soln] 3 ml INHALATION RT-TID #2 ampul.neb 11/10/19 [Rx] amLODIPine [Norvasc] 10 mg PO DAILY 28 Days tab 11/10/19 [Rx] buPROPion SR [Wellbutrin SR] 200 mg PO DAILY 28 Days tablet.er 11/10/19 [Rx] traZODone HCL 300 mg PO HS 28 Days tab 11/10/19 [Rx] Cefdinir [Omnicef] 300 mg PO BID #6 cap 12/21/19 [Rx] predniSONE 10 mg PO DIRECTED #30 tab 12/21/19 [Rx] Follow up Appointment(s)/Referral(s): Calista Gil MD [Primary Care Provider] - 12/27/19 4:45 pm (Your appointment will take place in [place] with Dr. Nuno.) Sherron Bal MD [STAFF PHYSICIAN] - 12/26/19 2:45 pm [facility] Visiting Nurse, [NON-STAFF] - 1 Week Ambulatory/Diagnostic Orders: Complete Blood Count w/diff [LAB.AMB] Time Frame: 3 Days, Location: None Selected Discharge Disposition: HOME WITH HOME HEALTH SERVICES
== END 2019-12-21 14:57 | disposition home health service (06) | DRG 192 ==
LOC: EC 18:36 → 5NMEDONC 21:09 → OBSVTOIN 12-21 08:46
PROVIDERS: ADMIT Family Medicine; ATTEND Family Medicine
DX: J44.1 Chronic obstructive pulmonary disease with (acute) exacerbation (principal); M79.7 Fibromyalgia; I10 Essential (primary) hypertension; M19.90 Unspecified osteoarthritis, unspecified site; F32.9 Major depressive disorder, single episode, unspecified; F17.200 Nicotine dependence, unspecified, uncomplicated; E78.5 Hyperlipidemia, unspecified; Z90.710 Acquired absence of both cervix and uterus; Z90.49 Acquired absence of other specified parts of digestive tract; Z98.890 Other specified postprocedural states; Z80.49 Family history of malignant neoplasm of other genital organs; Z79.899 Other long term (current) drug therapy; Z79.82 Long term (current) use of aspirin; Z79.52 Long term (current) use of systemic steroids
CPT/HCPCS: 71046; 80053; 81001; 83605; 85025; 85610; 87040; 87502; 93005; 94640; 94760; 96374; 99285

== ENCOUNTER 2020-05-28 03:33 | Emergency (ER) | payer MEDICARE, OTHER ==
[2020-05-28] MEDS ORDERED: SODIUM CHLORIDE 0.9% 1,000 ML IV STA ×2 (03:39→05:16)
[2020-05-28] MEDS ORDERED: MORPHINE SULFATE 4 MG/ML SYRINGE IV STA (03:39)
[2020-05-28] MEDS ORDERED: ONDANSETRON 4 MG/2 ML VIAL IVP STA (03:39)
[2020-05-28] MEDS ORDERED: PANTOPRAZOLE 40 MG/10 ML VIAL IVP STA (03:39)
[2020-05-28 03:41] VITALS: TEMP 99.4
--- NOTE | 2020-05-28 03:42 | ED ---
Abdominal Pain HPI - General Stated Complaint: Left side flank pain Time Seen by Provider: 05/28/20 03:38 Source: RN notes reviewed, old records reviewed Mode of arrival: EMS - History of Present Illness Initial Comments: This is a 54-year-old female DF for evaluation of severe severe abdominal pain diffuse abdominal pain and better when she lays on her right side. Positive nausea no active vomiting. 3-4 days of pain which is progressively worsening. Afebrile no diarrhea no blood in the stool. Patient has had multiple abdominal surgeries hysterectomy hernia repair etc. Not at this hospital. Otherwise patient denies any significant fever or other complaints MD Complaint: abdominal pain -: days(s) Location: diffuse Radiation: epigastric, suprapubic Migration to: LLQ, RLQ Severity: severe Severity scale (1-10): 8 Quality: aching Consistency: constant Improves With: nothing Worsens With: nothing Context: sick contacts Associated Symptoms: nausea, vomiting, diarrhea Treatments Prior to Arrival: prescription analgesics - Related Data Home Medications Medication Instructions Recorded Confirmed Cholecalciferol [Vitamin D3 (25 1,000 unit PO DAILY 01/24/18 12/19/19 Mcg = 1000 Iu)] Cyanocobalamin (Vitamin B-12) 1,000 mcg PO DAILY 01/24/18 12/19/19 [Vitamin B-12] Gabapentin [Neurontin] 300 mg PO TID 01/24/18 12/19/19 [place]-3 Fatty Acids/Fish Oil [Fish 1 cap PO DAILY 01/24/18 12/19/19 Oil 1,000 mg Softgel] Pyridoxine [Vitamin B-6] 50 mg PO DAILY 01/24/18 12/19/19 Previous Rx's Medication Instructions Recorded Aspirin 81 mg PO DAILY #30 tab 01/25/18 Atorvastatin [Lipitor] 40 mg PO DAILY #30 tab 01/25/18 Albuterol Inhaler (Mhu) [Ventolin 1 - 2 puff INHALATION RT-Q6H PRN 7 10/26/19 Hfa Inhaler (Mhu)] Days #1 inhaler Acetaminophen Tab [Tylenol] 650 mg PO Q4HR PRN tab 11/10/19 Budesonide [Pulmicort] 0.5 mg INHALATION RT-BID #2 nebu 11/10/19 DULoxetine HCL [Cymbalta] 60 mg PO BID #28 capsule. 11/10/19 Folic Acid 0.5 mg PO DAILY tab 11/10/19 Ipratropium-Albuterol Nebulize 3 ml INHALATION RT-TID #2 ampul.neb 11/10/19 [Duoneb 0.5 mg-3 mg/3 ml Soln] amLODIPine [Norvasc] 10 mg PO DAILY 28 Days tab 11/10/19 buPROPion SR [Wellbutrin SR] 200 mg PO DAILY 28 Days tablet.er 11/10/19 traZODone HCL 300 mg PO HS 28 Days tab 11/10/19 Cefdinir [Omnicef] 300 mg PO BID #6 cap 12/21/19 predniSONE 10 mg PO DIRECTED #30 tab 12/21/19 Allergies Allergy/AdvReac Type Severity Reaction Status Date / Time No Known Allergies Allergy Verified 05/28/20 03:41 Review of Systems ROS Statement: Those systems with pertinent positive or pertinent negative responses have been documented in the HPI. ROS Other: All systems not noted in ROS Statement are negative. Past Medical History Past Medical History: COPD, Fibromyalgia, Hypertension, Osteoarthritis (OA) Additional Past Medical History / Comment(s): degenerative disc disease History of Any Multi-Drug Resistant Organisms: None Reported Past Surgical History: Appendectomy, Hernia Repair, Hysterectomy Additional Past Surgical History / Comment(s): total hysterectomy, umbilical hernia repair Past Anesthesia/Blood Transfusion Reactions: No Reported Reaction Past Psychological History: Depression Additional Psychological History / Comment(s): pt stated "i am well controlled by the meds i take" Past Alcohol Use History: None Reported Additional Past Alcohol Use History / Comment(s): started at age 9 smokes 1/2 ppd Past Drug Use History: None Reported - Past Family History Mother Family Medical History: Cancer Additional Family Medical History / Comment(s): cervical cancer Father Family Medical History: No Reported History Additional Family Medical History / Comment(s): "he was killed" General Exam General appearance: alert, in no apparent distress Head exam: Present: atraumatic, normocephalic, normal inspection Eye exam: Present: normal appearance, PERRL, EOMI. Absent: scleral icterus, conjunctival injection, periorbital swelling ENT exam: Present: normal exam, mucous membranes moist Neck exam: Present: normal inspection. Absent: tenderness, meningismus, lymphadenopathy Respiratory exam: Present: normal lung sounds bilaterally. Absent: respiratory distress, wheezes, rales, rhonchi, stridor Cardiovascular Exam: Present: regular rate, normal rhythm, normal heart sounds. Absent: systolic murmur, diastolic murmur, rubs, gallop, clicks GI/Abdominal exam: Present: distended, tenderness, guarding, normal bowel sounds. Absent: rebound, rigid Extremities exam: Present: normal inspection, full ROM, normal capillary refill. Absent: tenderness, pedal edema, joint swelling, calf tenderness Back exam: Present: normal inspection Neurological exam: Present: alert, oriented X3, CN II-XII intact Psychiatric exam: Present: normal affect, normal mood Skin exam: Present: warm, dry, intact, normal color. Absent: rash Course Vital Signs 05/28/20 05/28/20 05/28/20 03:38 05:00 06:00 Temperature 99.4 F Pulse Rate 84 79 Respiratory 20 16 Rate Blood Pressure 146/93 155/107 153/85 O2 Sat by Pulse 99 100 99 Oximetry - Reevaluation(s) Reevaluation #1: 05/28/20 03:42 Medical records reviewed Reevaluation #2: 05/28/20 04:42 Patient has improved pain control Medical Decision Making - Medical Decision Making 54 female to the ER for evaluation of abdominal pain and found to have left calculus, pain is controlled can be discharged - Lab Data Result diagrams: 05/28/20 04:06 05/28/20 04:06 Lab Results 05/28/20 05/28/20 05/28/20 Range/Units 04:06 04:06 04:06 WBC 8.3 (3.8-10.6) k/uL RBC 4.48 (3.80-5.40) m/uL Hgb 13.1 (11.4-16.0) gm/dL Hct 40.0 (34.0-46.0) % MCV 89.3 (80.0-100.0) fL MCH 29.1 (25.0-35.0) pg MCHC 32.6 (31.0-37.0) g/dL RDW 13.2 (11.5-15.5) % Plt Count 259 (150-450) k/uL Neutrophils % 71 % Lymphocytes % 19 % Monocytes % 7 % Eosinophils % 1 % Basophils % 0 % Neutrophils # 5.9 (1.3-7.7) k/uL Lymphocytes # 1.6 (1.0-4.8) k/uL Monocytes # 0.6 (0-1.0) k/uL Eosinophils # 0.1 (0-0.7) k/uL Basophils # 0.0 (0-0.2) k/uL PT 10.4 (9.0-12.0) sec INR 1.0 (<1.2) APTT 22.1 (22.0-30.0) sec Sodium 139 (137-145) mmol/L Potassium 4.2 (3.5-5.1) mmol/L Chloride 109 H (98-107) mmol/L Carbon Dioxide 19 L (22-30) mmol/L Anion Gap 11 mmol/L BUN 17 (7-17) mg/dL Creatinine 1.01 (0.52-1.04) mg/dL Est GFR (CKD-EPI)AfAm 73 (>60 ml/min/1.73 sqM) Est GFR (CKD-EPI)NonAf 63 (>60 ml/min/1.73 sqM) Glucose 88 (74-99) mg/dL Calcium 10.3 H (8.4-10.2) mg/dL Total Bilirubin 0.5 (0.2-1.3) mg/dL AST 37 H (14-36) U/L ALT 30 (4-34) U/L Alkaline Phosphatase 89 (38-126) U/L Total Protein 7.8 (6.3-8.2) g/dL Albumin 4.8 (3.5-5.0) g/dL Amylase 99 (30-110) U/L Lipase 62 (23-300) U/L Urine Color Urine Appearance (Clear) Urine pH (5.0-8.0) Ur Specific [place] (1.001-1.035) Urine Protein (Negative) Urine Glucose (UA) (Negative) Urine Ketones (Negative) Urine Blood (Negative) Urine Nitrite (Negative) Urine Bilirubin (Negative) Urine Urobilinogen (<2.0) mg/dL Ur Leukocyte Esterase (Negative) Urine RBC (0-5) /hpf Urine WBC (0-5) /hpf Ur Squamous Epith Cells (0-4) /hpf Urine Bacteria (None) /hpf Urine Mucus (None) /hpf Urine Yeast (Budding) (None) /hpf 05/28/20 Range/Units 05:41 WBC (3.8-10.6) k/uL RBC (3.80-5.40) m/uL Hgb (11.4-16.0) gm/dL Hct (34.0-46.0) % MCV (80.0-100.0) fL MCH (25.0-35.0) pg MCHC (31.0-37.0) g/dL RDW (11.5-15.5) % Plt Count (150-450) k/uL Neutrophils % % Lymphocytes % % Monocytes % % Eosinophils % % Basophils % % Neutrophils # (1.3-7.7) k/uL Lymphocytes # (1.0-4.8) k/uL Monocytes # (0-1.0) k/uL Eosinophils # (0-0.7) k/uL Basophils # (0-0.2) k/uL PT (9.0-12.0) sec INR (<1.2) APTT (22.0-30.0) sec Sodium (137-145) mmol/L Potassium (3.5-5.1) mmol/L Chloride (98-107) mmol/L Carbon Dioxide (22-30) mmol/L Anion Gap mmol/L BUN (7-17) mg/dL Creatinine (0.52-1.04) mg/dL Est GFR (CKD-EPI)AfAm (>60 ml/min/1.73 sqM) Est GFR (CKD-EPI)NonAf (>60 ml/min/1.73 sqM) Glucose (74-99) mg/dL Calcium (8.4-10.2) mg/dL Total Bilirubin (0.2-1.3) mg/dL AST (14-36) U/L ALT (4-34) U/L Alkaline Phosphatase (38-126) U/L Total Protein (6.3-8.2) g/dL Albumin (3.5-5.0) g/dL Amylase (30-110) U/L Lipase (23-300) U/L Urine Color Yellow Urine Appearance Clear (Clear) Urine pH 8.0 (5.0-8.0) Ur Specific [place] 1.050 H (1.001-1.035) Urine Protein Trace H (Negative) Urine Glucose (UA) Negative (Negative) Urine Ketones 2+ H (Negative) Urine Blood Large H (Negative) Urine Nitrite Negative (Negative) Urine Bilirubin Negative (Negative) Urine Urobilinogen <2.0 (<2.0) mg/dL Ur Leukocyte Esterase Small H (Negative) Urine RBC >182 H (0-5) /hpf Urine WBC 11 H (0-5) /hpf Ur Squamous Epith Cells 5 H (0-4) /hpf Urine Bacteria Rare H (None) /hpf Urine Mucus Rare H (None) /hpf Urine Yeast (Budding) Rare H (None) /hpf - Radiology Data Radiology results: report reviewed (Computed tomography scan pelvis shows left calculus), image reviewed Disposition Clinical Impression: Left ureteral calculus Disposition: HOME SELF-CARE Condition: Good Instructions (If sedation given, give patient instructions): Kidney Stones (ED) Is patient prescribed a controlled substance at d/c from ED?: No Referrals: Calista Gil MD [Primary Care Provider] - 1-2 days
[2020-05-28 04:19] LABS: Basophils % (A) 0 %; Eosinophils # (A) 0.1 k/uL (0-0.7); Eosinophils % (A) 1 %; HGB 13.1 gm/dL (11.4-16.0); Lymphocytes # (A) 1.6 k/uL (1.0-4.8); Lymphocytes % (A) 19 %; MCH 29.1 pg (25.0-35.0); MCHC 32.6 g/dL (31.0-37.0); MCV 89.3 fL (80.0-100.0); Mean Platelet Volume 7.6; Monocytes # (A) 0.6 k/uL (0-1.0); Monocytes % (A) 7 %; Neutrophils # (A) 5.9 k/uL (1.3-7.7); Neutrophils % (A) 71 %; Platelet Count 259 k/uL (150-450); RBC 4.48 m/uL (3.80-5.40); RDW 13.2 % (11.5-15.5); WBC 8.3 k/uL (3.8-10.6)
[2020-05-28 04:34] LABS: Albumin 4.8 g/dL (3.5-5.0); Calcium 10.3 mg/dL (8.4-10.2); Potassium 4.2 mmol/L (3.5-5.1); Total Bilirubin 0.5 mg/dL (0.2-1.3); Total Protein 7.8 g/dL (6.3-8.2)
[2020-05-28 04:39] LABS: Partial Thromboplastin Time 22.1 sec (22.0-30.0); Prothrombin Time 10.4 sec (9.0-12.0)
--- NOTE | 2020-05-28 04:53 | CT ---
EXAMINATION TYPE: CT abdomen pelvis w con DATE OF EXAM: 05/28/2020 COMPARISON: None HISTORY: Flank pain CT DLP: 812.8 mGycm Automated exposure control for dose reduction was used. CONTRAST: Performed with IV Contrast, patient injected with 100 mL of Isovue 300. Multiple axial sections were obtained from the diaphragm to the floor the pelvis with IV contrast Iso franki 100 mL. FINDINGS: Lung bases are clear. There is no pleural effusion. Heart size is normal. There is no pericardial eff usion. Liver spleen stomach pancreas appear normal. Bile ducts are not dilated. Gallbladder appears normal. There is no adrenal mass. Kidneys have normal size. There is left-sided hydronephrosis. There is hal yed left side pyelogram. There is 3 mm calculus lateral left kidney. There is 9 mm calculus at the le ft ureteropelvic junction. The right kidney shows normal excretion. The ureters are not dilated. Ther e is no retroperitoneal adenopathy. Abdominal aorta is atheromatous. Bladder distends smoothly. There are multiple phleboliths in the pel vis. There is no inguinal hernia. There is no sign of a pelvic mass. There is hysterectomy. There is a first-degree L5-S1 spondylolisthesis. There is no spondylolysis. There is no lumbar compression fra cture. There is no mesenteric edema. There is no ascites or free air. I see no bowel obstruction. Appendix i s not seen. Patient apparently has had appendectomy. The bony pelvis appears intact. Hip joints appea r normal. IMPRESSION: Left-sided hydronephrosis with obstructing calculus at the left ureteropelvic junction. Small left re nal calculus.
[2020-05-28] MEDS ORDERED: KETOROLAC 30 MG/ML 1 ML VIAL IVP STA (04:58)
[2020-05-28] MEDS ORDERED: ONDANSETRON 4 MG ODT STARTER PACK 2 TAB BTL PO STA (05:00)
[2020-05-28] MEDS ORDERED: Acetaminophen-Codeine 300-30mg TAB PO STA (05:00)
[2020-05-28] MEDS ORDERED: TAMSULOSIN 0.4 MG CAP.ER.24H PO STA (05:00)
[2020-05-28] MEDS ORDERED: ACET/COD 300 MG/30 MG STARTER PACK 6 TAB BTL PO STA (05:00)
[2020-05-28] MEDS ORDERED: IBUPROFEN 600 MG STARTER PACK 4 TAB BTL PO STA (05:01)
[2020-05-28 06:07] LABS: Appearance,Urine Clear (Clear); Bacteria,Urine Rare /hpf; Bilirubin,Urine Negative (Negative); Blood,Urine Large (Negative); Budding Yeast,Urine Rare /hpf; Color,Urine Yellow; Glucose,Urine (UA) Negative (Negative); Ketones,Urine 2+ (Negative); Leukocyte Esterase,Urine Small (Negative); Mucus,Urine Rare /hpf; Nitrite,Urine Negative (Negative); Protein,Urine Trace (Negative); RBC,Urine >182 /hpf (0-5); Squamous Epithelial Cell,Urine 5 /hpf (0-4); Urobilinogen,Urine <2.0 mg/dL (<2.0); WBC,Urine 11 /hpf (0-5)
[2020-05-28 06:09] VITALS: BP 153/85; PULSE 79; RESP 16
[2020-05-28] MEDS ORDERED: HYDROmorphone 1 MG/ML 1 ML SYRINGE IVP STA (06:13)
[2020-05-28] MEDS ORDERED: traMADol 50 MG TAB PO STA (06:25)
[2020-05-28] MEDS ORDERED: traMADol 50 MG STARTER PACK 3 TAB BTL PO STA (06:25)
== END 2020-05-28 07:09 | disposition home or self-care (01) ==
LOC: EC 03:33
DX: N20.1 Calculus of ureter (principal); R19.7 Diarrhea, unspecified; M79.7 Fibromyalgia; Z90.49 Acquired absence of other specified parts of digestive tract; Z90.710 Acquired absence of both cervix and uterus; Z98.890 Other specified postprocedural states; Z79.899 Other long term (current) drug therapy; Z53.29 Procedure and treatment not carried out because of patient's decision for other reasons
CPT/HCPCS: 36415; 80053; 82150; 83690; 85025; 85610; 85730; 81001; 87086; 74177; 99285; 96374; 96375 ×3; 96361; J2270; J2405; J1885; S0119; C9113; Q9967

== ENCOUNTER 2020-08-26 07:56 | Emergency (ER) | payer MEDICARE, OTHER ==
[2020-08-26] MEDS ORDERED: KETOROLAC 15 MG/ML 1 ML VIAL IVP STA (08:18)
[2020-08-26] MEDS ORDERED: SODIUM CHLORIDE 0.9% 1,000 ML IV STA (08:18)
[2020-08-26] MEDS ORDERED: ONDANSETRON 4 MG/2 ML VIAL IVP STA (08:18)
[2020-08-26 08:44] LABS: Basophils % (A) 1 %; Eosinophils % (A) 0 %; HCT 35.1 % (34.0-46.0); HGB 11.5 gm/dL (11.4-16.0); Lymphocytes # (A) 1.7 k/uL (1.0-4.8); Lymphocytes % (A) 23 %; MCH 30.1 pg (25.0-35.0); MCHC 32.7 g/dL (31.0-37.0); Mean Platelet Volume 7.4; Monocytes # (A) 0.7 k/uL (0-1.0); Monocytes % (A) 9 %; Neutrophils # (A) 4.9 k/uL (1.3-7.7); Neutrophils % (A) 66 %; Platelet Count 248 k/uL (150-450); RBC 3.82 m/uL (3.80-5.40); RDW 13.5 % (11.5-15.5); WBC 7.4 k/uL (3.8-10.6)
[2020-08-26 08:53] LABS: ALT 18 U/L (4-34); AST 32 U/L (14-36); African American GFR (CKD) >90 (>60 ml/min/1.73 sqM); Albumin 4.5 g/dL (3.5-5.0); Alkaline Phosphatase 80 U/L (38-126); Anion Gap 8 mmol/L; Blood Urea Nitrogen 13 mg/dL (7-17); Calcium 9.8 mg/dL (8.4-10.2); Carbon Dioxide 24 mmol/L (22-30); Chloride 107 mmol/L (98-107); Glucose 106 mg/dL (74-99); Non-African American GFR(CKD) >90 (>60 ml/min/1.73 sqM); Potassium 4.7 mmol/L (3.5-5.1); Sodium 139 mmol/L (137-145); Total Bilirubin 0.3 mg/dL (0.2-1.3); Total Protein 7.4 g/dL (6.3-8.2)
--- NOTE | 2020-08-26 09:26 | US ---
EXAMINATION TYPE: US kidneys/renal and bladder DATE OF EXAM: 08/26/2020 COMPARISON: NONE CLINICAL HISTORY: recent stent placed, increased pain. Stenting done yesterday at [facility], back pain, bi lateral leg pain, h/o stones EXAM MEASUREMENTS: Right Kidney: 10.6 x 4.6 x 4.8 cm Left Kidney: 11.2 x 5.6 x 6.0 cm Right Kidney: No hydronephrosis or masses seen Left Kidney: No hydronephrosis or masses seen Bladder: wnl Bilateral Jets seen: not seen IMPRESSION: 1. No hydronephrosis bilaterally. 2. Unremarkable urinary bladder. 3. No stent is visualized.
[2020-08-26] MEDS ORDERED: MORPHINE SULFATE 4 MG/ML SYRINGE IVP STA ×2 (09:33→11:36)
--- NOTE | 2020-08-26 09:45 | XR ---
KUB HISTORY: Recent left kidney stent, pain Frontal KUB submitted on 2 images, correlation CT scan 05/28/2020 Double-J stent is present on the left. Lung bases are clear. No evident bowel obstruction or pneumope ritoneum. Scattered calcifications are present within the pelvis. Bone mineralization is normal. IMPRESSION: Indwelling stent. Indeterminate calcifications, difficult to exclude ureteral calcificati on
--- NOTE | 2020-08-26 10:27 | ED ---
Abdominal Pain HPI - General Chief Complaint: Abdominal Pain Stated Complaint: abd pain Time Seen by Provider: 08/26/20 07:57 Source: patient, EMS Mode of arrival: EMS Limitations: no limitations - History of Present Illness Initial Comments: Patient is a 54-year-old female presenting to emergency Department via EMS, with multiple complaints. Patient was at [facility] yesterday and had a cystoscopy and ureteral stent placed yesterday by Dr. Cuadra. Patient was discharged with ibuprofen and these to follow-up in one week. Patient states she came in today because she still having lower back pain, generalized abdominal discomfort and pain in her back. Patient states she has been having chronic low back pain. Patient states she also has right-sided flank pain even though her stent on the left side. She denies any fever or chills. She states she cannot get her pain under control. She denies any nausea, vomiting, diarrhea. She denies any chest pain or shortness of breath. She has no further complaints at this time. Upon arrival to the ER, her vitals are stable. - Related Data Home Medications Medication Instructions Recorded Confirmed Cholecalciferol [Vitamin D3 (25 5,000 unit PO DAILY 01/24/18 08/26/20 Mcg = 1000 Iu)] Cyanocobalamin (Vitamin B-12) 1,000 mcg PO DAILY 01/24/18 08/26/20 [Vitamin B-12] Gabapentin [Neurontin] 300 mg PO TID 01/24/18 08/26/20 [place]-3 Fatty Acids/Fish Oil [Fish 1 cap PO DAILY 01/24/18 08/26/20 Oil 1,000 mg Softgel] FLUoxetine HCL 40 mg PO DAILY 08/26/20 08/26/20 Folic Acid 0.4 mg PO DAILY 08/26/20 08/26/20 HYDROcodone/APAP 5-325MG [[place] 1 tab PO TID PRN 08/26/20 08/26/20 5-325] Ibuprofen [Motrin] 600 mg PO TID PRN 08/26/20 08/26/20 Montelukast [Singulair] 10 mg PO DAILY 08/26/20 08/26/20 Pantoprazole Sodium [Protonix] 40 mg PO DAILY 08/26/20 08/26/20 Pyridoxine HCl (Vitamin B6) 100 mg PO DAILY 08/26/20 08/26/20 [Vitamin B-6] Ubidecarenone [Co Q-10] 100 mg PO DAILY 08/26/20 08/26/20 traZODone HCL 300 mg PO HS PRN 08/26/20 08/26/20 Previous Rx's Medication Instructions Recorded Aspirin 81 mg PO DAILY #30 tab 01/25/18 Atorvastatin [Lipitor] 40 mg PO DAILY #30 tab 01/25/18 Acetaminophen Tab [Tylenol] 650 mg PO Q4HR PRN tab 11/10/19 DULoxetine HCL [Cymbalta] 60 mg PO BID #28 capsule. 11/10/19 Ketorolac [Toradol] 10 mg PO Q8HR #10 tab 08/26/20 Allergies Allergy/AdvReac Type Severity Reaction Status Date / Time hydromorphone [From Dilaudid] Allergy Nausea & Verified 08/26/20 08:40 Vomiting tramadol AdvReac Nausea & Verified 08/26/20 08:40 Vomiting, Dizziness Review of Systems ROS Statement: Those systems with pertinent positive or pertinent negative responses have been documented in the HPI. ROS Other: All systems not noted in ROS Statement are negative. Past Medical History Past Medical History: COPD, Fibromyalgia, Hypertension, Osteoarthritis (OA) Additional Past Medical History / Comment(s): degenerative disc disease History of Any Multi-Drug Resistant Organisms: None Reported Past Surgical History: Appendectomy, Hernia Repair, Hysterectomy Additional Past Surgical History / Comment(s): total hysterectomy, umbilical hernia repair Past Anesthesia/Blood Transfusion Reactions: No Reported Reaction Past Psychological History: Depression Smoking Status: Current every day smoker Past Alcohol Use History: None Reported Past Drug Use History: None Reported - Past Family History Mother Family Medical History: Cancer Additional Family Medical History / Comment(s): cervical cancer Father Family Medical History: No Reported History Additional Family Medical History / Comment(s): "he was killed" General Exam - General Exam Comments Initial Comments: GENERAL: Patient is well-developed and well-nourished. Patient is nontoxic and in no acute distress. HEAD: Atraumatic, normocephalic. EYES: Pupils equal round and reactive to light, extraocular movements intact, sclera anicteric, conjunctiva are normal. Eyelids were unremarkable. ENT: TMs normal, nares patent, oropharynx clear without exudates. Moist mucous membranes. NECK: Normal range of motion, supple without lymphadenopathy or JVD. LUNGS: Unlabored respirations. Breath sounds clear to auscultation bilaterally and equal. No wheezes rales or rhonchi. HEART: Regular rate and rhythm without murmurs, rubs or gallops. ABDOMEN: Mild left-sided discomfort, suprapubic, no specific area pain. Soft, normoactive bowel sounds. No guarding, no rebound. No masses appreciated. : Deferred MUSCULOSKELETAL: Normal extremities with adequate strength and normal range of motion, no pitting or edema. No clubbing or cyanosis. NEUROLOGICAL: Patient is alert and oriented x 3. Motor and sensory are also intact. Cranial nerves II through XII grossly intact. Symmetrical smile. Normal speech, normal gait. PSYCH: Normal mood, normal affect. SKIN: Warm, Dry, normal turgor, no rashes or lesions noted. Limitations: no limitations Course Vital Signs 08/26/20 08/26/20 08/26/20 07:59 09:43 11:41 Temperature 99.3 F Pulse Rate 94 98 90 Respiratory 18 16 16 Rate Blood Pressure 167/95 143/85 177/100 O2 Sat by Pulse 99 100 99 Oximetry 08/26/20 08/26/20 13:12 14:56 Temperature 98.6 F Pulse Rate 71 73 Respiratory 16 12 Rate Blood Pressure 141/91 138/88 O2 Sat by Pulse 100 98 Oximetry Medical Decision Making - Medical Decision Making Patient is a 54-year-old female here for lower abdominal discomfort, back pain. She is status post one day cystoscopy and ureteral stent placement by Dr. Cuadra at [facility] yesterday. Her vital signs are stable. Her exam reveals some mild generalized abdominal discomfort, mostly left-sided, no specific area pain. I did review records from [facility], she was to follow-up in one week with Dr. Cuadra. She was prescribed Motrin for her pain. Patient's labs are stable, kidney function is stable, lactic acid is normal. KUB shows indwelling stent him a complications present. Ultrasound of the kidneys and bladder showed no hydronephrosis bilaterally and unremarkable urinary bladder. Patient is receiving pain control, fluids. Patient was initially refusing to leave. We did order a CT of the abdomen at that point which showed no acute abnormalities, stent was in place. Additional pain meds and fluids were given. She has been stable in the ER. We discussed with patient that she needs to follow up with her PCP or her urologist. Patient agrees to be discharged. I will get give her a prescription of Toradol which we discussed not taking with the Motrin. She also already has a prescription for tramadol with her. She ne eds to follow up with her PCP regarding additional pain medications. Patient states she is in agreement with this plan of care. She is stable for discharge. Return parameters were discussed with the patient she verbalized understanding. Case discussed with Dr. Craft. - Lab Data Result diagrams: 08/26/20 08:07 08/26/20 08:07 Lab Results 08/26/20 08/26/20 08/26/20 Range/Units 08:07 08:07 08:07 WBC 7.4 (3.8-10.6) k/uL RBC 3.82 (3.80-5.40) m/uL Hgb 11.5 (11.4-16.0) gm/dL Hct 35.1 (34.0-46.0) % MCV 92.0 (80.0-100.0) fL MCH 30.1 (25.0-35.0) pg MCHC 32.7 (31.0-37.0) g/dL RDW 13.5 (11.5-15.5) % Plt Count 248 (150-450) k/uL Neutrophils % 66 % Lymphocytes % 23 % Monocytes % 9 % Eosinophils % 0 % Basophils % 1 % Neutrophils # 4.9 (1.3-7.7) k/uL Lymphocytes # 1.7 (1.0-4.8) k/uL Monocytes # 0.7 (0-1.0) k/uL Eosinophils # 0.0 (0-0.7) k/uL Basophils # 0.0 (0-0.2) k/uL Sodium 139 (137-145) mmol/L Potassium 4.7 (3.5-5.1) mmol/L Chloride 107 (98-107) mmol/L Carbon Dioxide 24 (22-30) mmol/L Anion Gap 8 mmol/L BUN 13 (7-17) mg/dL Creatinine 0.70 (0.52-1.04) mg/dL Est GFR (CKD-EPI)AfAm >90 (>60 ml/min/1.73 sqM) Est GFR (CKD-EPI)NonAf >90 (>60 ml/min/1.73 sqM) Glucose 106 H (74-99) mg/dL Plasma Lactic Acid Ashok 1.6 (0.7-2.0) mmol/L Calcium 9.8 (8.4-10.2) mg/dL Total Bilirubin 0.3 (0.2-1.3) mg/dL AST 32 (14-36) U/L ALT 18 (4-34) U/L Alkaline Phosphatase 80 (38-126) U/L Total Protein 7.4 (6.3-8.2) g/dL Albumin 4.5 (3.5-5.0) g/dL Urine Color Urine Appearance (Clear) Urine pH (5.0-8.0) Ur Specific [place] (1.001-1.035) Urine Protein (Negative) Urine Glucose (UA) (Negative) Urine Ketones (Negative) Urine Blood (Negative) Urine Nitrite (Negative) Urine Bilirubin (Negative) Urine Urobilinogen (<2.0) mg/dL Ur Leukocyte Esterase (Negative) Urine RBC (0-5) /hpf Urine WBC (0-5) /hpf Urine Bacteria (None) /hpf Urine Mucus (None) /hpf 08/26/20 Range/Units 10:34 WBC (3.8-10.6) k/uL RBC (3.80-5.40) m/uL Hgb (11.4-16.0) gm/dL Hct (34.0-46.0) % MCV (80.0-100.0) fL MCH (25.0-35.0) pg MCHC (31.0-37.0) g/dL RDW (11.5-15.5) % Plt Count (150-450) k/uL Neutrophils % % Lymphocytes % % Monocytes % % Eosinophils % % Basophils % % Neutrophils # (1.3-7.7) k/uL Lymphocytes # (1.0-4.8) k/uL Monocytes # (0-1.0) k/uL Eosinophils # (0-0.7) k/uL Basophils # (0-0.2) k/uL Sodium (137-145) mmol/L Potassium (3.5-5.1) mmol/L Chloride (98-107) mmol/L Carbon Dioxide (22-30) mmol/L Anion Gap mmol/L BUN (7-17) mg/dL Creatinine (0.52-1.04) mg/dL Est GFR (CKD-EPI)AfAm (>60 ml/min/1.73 sqM) Est GFR (CKD-EPI)NonAf (>60 ml/min/1.73 sqM) Glucose (74-99) mg/dL Plasma Lactic Acid Ashok (0.7-2.0) mmol/L Calcium (8.4-10.2) mg/dL Total Bilirubin (0.2-1.3) mg/dL AST (14-36) U/L ALT (4-34) U/L Alkaline Phosphatase (38-126) U/L Total Protein (6.3-8.2) g/dL Albumin (3.5-5.0) g/dL Urine Color Light Yellow Urine Appearance Clear (Clear) Urine pH 7.0 (5.0-8.0) Ur Specific [place] 1.007 (1.001-1.035) Urine Protein Negative (Negative) Urine Glucose (UA) Negative (Negative) Urine Ketones Negative (Negative) Urine Blood Moderate H (Negative) Urine Nitrite Negative (Negative) Urine Bilirubin Negative (Negative) Urine Urobilinogen <2.0 (<2.0) mg/dL Ur Leukocyte Esterase Negative (Negative) Urine RBC >182 H (0-5) /hpf Urine WBC 1 (0-5) /hpf Urine Bacteria Rare H (None) /hpf Urine Mucus Rare H (None) /hpf Disposition Clinical Impression: Abdominal pain Disposition: HOME SELF-CARE Condition: Stable Instructions (If sedation given, give patient instructions): Abdominal Pain (ED) Additional Instructions: Please return to the Emergency Department if symptoms worsen or any other concerns. Follow-up with your PCP and/or urology as discussed. May alternate with ibuprofen and tramadol. Do not take the ibuprofen and Toradol together. Prescriptions: Ketorolac [Toradol] 10 mg PO Q8HR #10 tab Is patient prescribed a controlled substance at d/c from ED?: No Referrals: Calista Gil MD [Primary Care Provider] - 1-2 days Zuri Dsouza DO [REFERRING] - 1-2 days
[2020-08-26 11:12] LABS: Appearance,Urine Clear (Clear); Bacteria,Urine Rare /hpf; Bilirubin,Urine Negative (Negative); Blood,Urine Moderate (Negative); Color,Urine Light Yellow; Glucose,Urine (UA) Negative (Negative); Ketones,Urine Negative (Negative); Leukocyte Esterase,Urine Negative (Negative); Mucus,Urine Rare /hpf; Nitrite,Urine Negative (Negative); Protein,Urine Negative (Negative); RBC,Urine >182 /hpf (0-5); Specific Gravity,Urine 1.007 (1.001-1.035); Urobilinogen,Urine <2.0 mg/dL (<2.0); WBC,Urine 1 /hpf (0-5)
--- NOTE | 2020-08-26 12:49 | CT ---
EXAMINATION TYPE: CT abdomen pelvis w con DATE OF EXAM: 08/26/2020 COMPARISON: KUB 08/26/2020. Discontinue 08/26/2020. CT abdomen pelvis 05/20/2020. HISTORY: Left sided pain with recent ureteral stent placement. CT DLP: 950.6 mGycm Automated exposure control for dose reduction was used. TECHNIQUE: Helical acquisition of images was performed from the lung bases through the pelvis. CONTRAST: Performed without Oral Contrast and with IV Contrast, patient injected with 100 mL of Isovue 300. FINDINGS: LUNG BASES: Normal. LIVER: Normal. BILIARY SYSTEM: Normal. PANCREAS: At least 3 subcentimeter hypodense foci of the pancreatic tail are redemonstrated (201:19). SPLEEN: Normal. ADRENALS: Normal. KIDNEYS: There is a left-sided ureteral stents proximally coiled within the renal pelvis and distally coiled within the urinary bladder. Tiny focus of air within the left renal upper pole is likely iatr ogenic due to ureteral stent placement. There is no hydronephrosis or hydroureter. The perinephric in flammatory stranding seen on 05/20/2020 CT comparison is resolved. There is symmetric and homogenous r enal enhancement. BOWEL: No obstruction or thickening. PERITONEUM: No pneumoperitoneum. No free fluid. LYMPH NODES: No lymphadenopathy. PELVIS: Normal. Redemonstrated pelvic phleboliths. VASCULATURE: No abdominal aortic aneurysm. MUSCULOSKELETAL: Degenerative changes of the spine. Grade 1 anterolisthesis of L5 on S1. IMPRESSION: 1. Appropriately positioned left ureteral stent. No hydronephrosis or hydroureter. 2. At least 3 subcentimeter hypodense foci within the pancreatic tail are redemonstrated. Some of the se foci may represent interdigitated fat, however some are indeterminate and may represent branch gume crystal IPMNs. Recommend nonemergent outpatient MRCP for further characterization.
[2020-08-26] MEDS ORDERED: ETODOLAC 400 MG TAB PO STA (13:54)
[2020-08-26] MEDS ORDERED: MORPHINE SULFATE 2 MG/ML SYRINGE IVP ONE (13:57)
[2020-08-26 14:58] VITALS: BP 138/88; PULSE 73; RESP 12; TEMP 98.6
== END 2020-08-26 15:18 | disposition home or self-care (01) ==
LOC: EC 07:56
DX: R10.9 Unspecified abdominal pain (principal); J44.9 Chronic obstructive pulmonary disease, unspecified; I10 Essential (primary) hypertension; F32.9 Major depressive disorder, single episode, unspecified; F17.200 Nicotine dependence, unspecified, uncomplicated; Z79.51 Long term (current) use of inhaled steroids; Z79.899 Other long term (current) drug therapy; Z88.5 Allergy status to narcotic agent
CPT/HCPCS: 36415; 80053; 83605; 85025; 81001; 74018; 76770; 74177; 99285; 96374; 96375 ×2; 96376 ×2; 96361 ×4; J2270 ×2; J2405; J1885; Q9967

== ENCOUNTER 2020-10-22 18:26 | Emergency (ER) | payer MEDICARE, OTHER ==
[2020-10-22] MEDS ORDERED: ONDANSETRON 4 MG/2 ML VIAL IVP STA (19:17)
[2020-10-22] MEDS ORDERED: HYDROcodone/APAP 7.5-325MG 1 EACH TAB PO ONE (19:17)
[2020-10-22] MEDS ORDERED: SODIUM CHLORIDE 0.9% 1,000 ML IV ONE (19:19)
[2020-10-22] MEDS ORDERED: MORPHINE SULFATE 4 MG/ML SYRINGE IM STA (19:40)
--- NOTE | 2020-10-22 20:16 | CT ---
EXAMINATION TYPE: CT brain cspine wo con DATE OF EXAM: 10/22/2020 COMPARISON: None HISTORY: Weakness and pain. CT DLP: 1273.4 mGycm Automated exposure control for dose reduction was used. Ventricles have normal size. There is no mass effect nor midline shift. There is no sign of intracran ial hemorrhage. Calvarium is intact. There is no evidence of cerebral edema. Cervical vertebra show some straightening. There is degenerative spur formation throughout the cervic al spine. There is no compression fracture. There is multilevel cervical hypertrophic facet arthropat hy. IMPRESSION: Cervical multilevel spondylotic changes. No fracture. Negative CT scan of the brain.
[2020-10-22 20:51] LABS: Basophils % (A) 1 %; Eosinophils # (A) 0.1 k/uL (0-0.7); Eosinophils % (A) 2 %; HCT 37.3 % (34.0-46.0); HGB 12.6 gm/dL (11.4-16.0); Lymphocytes # (A) 2.8 k/uL (1.0-4.8); Lymphocytes % (A) 45 %; MCH 30.7 pg (25.0-35.0); MCHC 33.8 g/dL (31.0-37.0); MCV 90.9 fL (80.0-100.0); Mean Platelet Volume 7.4; Monocytes # (A) 0.3 k/uL (0-1.0); Monocytes % (A) 5 %; Neutrophils # (A) 2.8 k/uL (1.3-7.7); Neutrophils % (A) 45 %; Platelet Count 202 k/uL (150-450); WBC 6.3 k/uL (3.8-10.6)
[2020-10-22 21:01] LABS: Partial Thromboplastin Time 24.4 sec (22.0-30.0); Prothrombin Time 10.5 sec (9.0-12.0)
[2020-10-22 21:03] LABS: ALT 16 U/L (4-34); AST 25 U/L (14-36); African American GFR (CKD) >90 (>60 ml/min/1.73 sqM); Albumin 4.4 g/dL (3.5-5.0); Alkaline Phosphatase 110 U/L (38-126); Anion Gap 4 mmol/L; Blood Urea Nitrogen 11 mg/dL (7-17); Calcium 9.7 mg/dL (8.4-10.2); Carbon Dioxide 25 mmol/L (22-30); Chloride 109 mmol/L (98-107); Glucose 81 mg/dL (74-99); Lipase 274 U/L (23-300); Non-African American GFR(CKD) 81 (>60 ml/min/1.73 sqM); Potassium 4.2 mmol/L (3.5-5.1); Sodium 138 mmol/L (137-145); Total Bilirubin 0.4 mg/dL (0.2-1.3); Total Protein 7.4 g/dL (6.3-8.2)
[2020-10-22 21:32] VITALS: RESP 16
[2020-10-22] MEDS ORDERED: MORPHINE SULFATE 4 MG/ML SYRINGE IVP STA (22:07)
[2020-10-22 22:09] LABS: Appearance,Urine Clear (Clear); Bilirubin,Urine Negative (Negative); Blood,Urine Negative (Negative); Color,Urine Colorless; Glucose,Urine (UA) Negative (Negative); Ketones,Urine Negative (Negative); Leukocyte Esterase,Urine Negative (Negative); Nitrite,Urine Negative (Negative); PH, Urine 7.5 (5.0-8.0); Protein,Urine Negative (Negative); Specific Gravity,Urine 1.004 (1.001-1.035); Urobilinogen,Urine <2.0 mg/dL (<2.0)
--- NOTE | 2020-10-22 23:03 | ED ---
General Adult HPI - General Chief complaint: Recheck/Abnormal Lab/Rx Stated complaint: Pain Time Seen by Provider: 10/22/20 18:30 Source: patient Mode of arrival: ambulatory Limitations: no limitations - History of Present Illness Initial comments: The patient is is a 55-year-old female past medical history of febrile myalgia, hypertension, degenerative disc disease who presents emergency room with reported pain all over. Primary care physician did evaluate the patient through a tele-visit and was concerned that the patient was reporting to abdominal pain. She had recent kidney stone with stent placement and therefore sent her into the emergency department for evaluation. Upon initial exam the patient does report to chronic neck and back pain. States that her neck pain has been worse recently. She no longer has anything at home to take for her pain. She also reports to degenerative disc disease with pain in her lower back. She denies any new trauma. No fevers or chills. Denies any weakness in her extremities. Denies dysuria, hematuria or difficulty voiding. No changes in her bowel habits. No other alleviating, precipitating or modifying factors - Related Data Home Medications Medication Instructions Recorded Confirmed Cholecalciferol [Vitamin D3 (25 5,000 unit PO DAILY 01/24/18 10/28/20 Mcg = 1000 Iu)] Cyanocobalamin (Vitamin B-12) 1,000 mcg PO DAILY 01/24/18 10/28/20 [Vitamin B-12] Gabapentin [Neurontin] 300 mg PO TID 01/24/18 10/28/20 [place]-3 Fatty Acids/Fish Oil [Fish 1 cap PO DAILY 01/24/18 10/28/20 Oil 1,000 mg Softgel] FLUoxetine HCL 40 mg PO DAILY 08/26/20 10/28/20 Folic Acid 0.4 mg PO DAILY 08/26/20 10/28/20 Montelukast [Singulair] 10 mg PO HS 08/26/20 10/28/20 Pyridoxine HCl (Vitamin B6) 100 mg PO DAILY 08/26/20 10/28/20 [Vitamin B-6] Ubidecarenone [Co Q-10] 100 mg PO DAILY 08/26/20 10/28/20 traZODone HCL 300 mg PO HS PRN 08/26/20 10/28/20 Ondansetron Odt [Zofran Odt] 4 mg PO Q8HR PRN 10/22/20 10/28/20 amLODIPine [Norvasc] 2.5 mg PO DAILY 10/22/20 10/28/20 Previous Rx's Medication Instructions Recorded Aspirin 81 mg PO DAILY #30 tab 01/25/18 Atorvastatin [Lipitor] 40 mg PO DAILY #30 tab 01/25/18 Acetaminophen Tab [Tylenol] 650 mg PO Q4HR PRN tab 11/10/19 DULoxetine HCL [Cymbalta] 60 mg PO BID #28 capsule. 11/10/19 Hydrocodone/Acetaminophen [[place] 1 tab PO Q6HR PRN #12 tab 10/22/20 5-325] Ondansetron Odt [Zofran Odt] 4 mg PO Q8HR PRN #10 tab 10/22/20 Allergies Allergy/AdvReac Type Severity Reaction Status Date / Time hydromorphone [From Dilaudid] Allergy Nausea & Verified 10/22/20 19:23 Vomiting Review of Systems ROS Statement: Those systems with pertinent positive or pertinent negative responses have been documented in the HPI. ROS Other: All systems not noted in ROS Statement are negative. Past Medical History Past Medical History: COPD, Fibromyalgia, Hypertension, Osteoarthritis (OA) Additional Past Medical History / Comment(s): degenerative disc disease History of Any Multi-Drug Resistant Organisms: None Reported Past Surgical History: Appendectomy, Hernia Repair, Hysterectomy Additional Past Surgical History / Comment(s): total hysterectomy, umbilical hernia repair Past Anesthesia/Blood Transfusion Reactions: No Reported Reaction Past Psychological History: Depression Smoking Status: Current every day smoker Past Alcohol Use History: None Reported Past Drug Use History: None Reported - Past Family History Mother Family Medical History: Cancer Additional Family Medical History / Comment(s): cervical cancer Father Family Medical History: No Reported History Additional Family Medical History / Comment(s): "he was killed" General Exam Limitations: no limitations General appearance: alert, in no apparent distress Head exam: Present: atraumatic, normocephalic, normal inspection Eye exam: Present: normal appearance, PERRL, EOMI. Absent: scleral icterus, conjunctival injection, periorbital swelling ENT exam: Present: normal exam, mucous membranes moist Neck exam: Present: normal inspection, tenderness (right paraspinal). Absent: meningismus, lymphadenopathy Respiratory exam: Present: normal lung sounds bilaterally. Absent: respiratory distress, wheezes, rales, rhonchi, stridor Cardiovascular Exam: Present: regular rate, normal rhythm, normal heart sounds. Absent: systolic murmur, diastolic murmur, rubs, gallop, clicks GI/Abdominal exam: Present: soft, normal bowel sounds. Absent: distended, tenderness, guarding, rebound, rigid Extremities exam: Present: normal inspection, full ROM, normal capillary refill. Absent: tenderness, pedal edema, joint swelling, calf tenderness Back exam: Present: normal inspection Neurological exam: Present: alert, oriented X3, CN II-XII intact Psychiatric exam: Present: flat affect, other (uncooperative) Skin exam: Present: warm, dry, intact, normal color. Absent: rash Course Vital Signs 10/22/20 10/22/20 10/22/20 18:28 20:50 21:50 Temperature 99.2 F 99.0 F 98.9 F Pulse Rate 81 74 81 Respiratory 18 16 16 Rate Blood Pressure 136/72 121/63 128/71 O2 Sat by Pulse 98 97 96 Oximetry Medical Decision Making - Medical Decision Making Upon arrival patient is placed into room 14. A thorough history of physical exam is performed. Laboratory studies were conducted. The patient went over for a CT of her brain and cervical spine as her reported original complaint was headache and neck pain. Patient was given 4 mg of morphine for pain control. Upon reevaluation the patient is requesting more pain meds. She then begins complaining that she is having right shoulder pain. States she is previously had cortisone injections into the shoulder. She is requesting a shoulder x-ray. X-ray is performed and demonstrates no acute fractures. Upon entrance into the room to discuss the patient's laboratory studies results and imaging the patient states that her pain has now migrated down into her abdomen. Does admit that this pain has been chronic for her. She does have an EGD and colonoscopy set up for next week. Patient was informed that her laboratory studies are normal and her urinalysis is negative. I did review the patient's CT from previous visit. These results are discussed with the patient. Reports to the patient that she needs to follow-up with her primary care physician in regards to her symptoms. She does have an EGD and colostomy scheduled for next week. If she has any worsening symptoms she should return to the emergency room. Upon notifying the patient that she was leaving, the patient becomes irate saying that she does not think she has been treated long enough in the emergency department. I did discuss the results once again with the patient, notifying her that her results were normal and offering reassurance. She does have follow up with with her PCP and Dr. Marrero next week. - Lab Data Result diagrams: 10/22/20 20:40 10/22/20 20:40 Lab Results 10/22/20 10/22/20 10/22/20 Range/Units 20:40 20:40 20:40 WBC 6.3 (3.8-10.6) k/uL RBC 4.10 (3.80-5.40) m/uL Hgb 12.6 (11.4-16.0) gm/dL Hct 37.3 (34.0-46.0) % MCV 90.9 (80.0-100.0) fL MCH 30.7 (25.0-35.0) pg MCHC 33.8 (31.0-37.0) g/dL RDW 13.0 (11.5-15.5) % Plt Count 202 (150-450) k/uL MPV 7.4 Neutrophils % 45 % Lymphocytes % 45 % Monocytes % 5 % Eosinophils % 2 % Basophils % 1 % Neutrophils # 2.8 (1.3-7.7) k/uL Lymphocytes # 2.8 (1.0-4.8) k/uL Monocytes # 0.3 (0-1.0) k/uL Eosinophils # 0.1 (0-0.7) k/uL Basophils # 0.0 (0-0.2) k/uL PT 10.5 (9.0-12.0) sec INR 1.0 (<1.2) APTT 24.4 (22.0-30.0) sec Sodium 138 (137-145) mmol/L Potassium 4.2 (3.5-5.1) mmol/L Chloride 109 H (98-107) mmol/L Carbon Dioxide 25 (22-30) mmol/L Anion Gap 4 mmol/L BUN 11 (7-17) mg/dL Creatinine 0.82 (0.52-1.04) mg/dL Est GFR (CKD-EPI)AfAm >90 (>60 ml/min/1.73 sqM) Est GFR (CKD-EPI)NonAf 81 (>60 ml/min/1.73 sqM) Glucose 81 (74-99) mg/dL Plasma Lactic Acid Ashok (0.7-2.0) mmol/L Calcium 9.7 (8.4-10.2) mg/dL Total Bilirubin 0.4 (0.2-1.3) mg/dL AST 25 (14-36) U/L ALT 16 (4-34) U/L Alkaline Phosphatase 110 (38-126) U/L Total Protein 7.4 (6.3-8.2) g/dL Albumin 4.4 (3.5-5.0) g/dL Lipase 274 (23-300) U/L Urine Color Urine Appearance (Clear) Urine pH (5.0-8.0) Ur Specific [place] (1.001-1.035) Urine Protein (Negative) Urine Glucose (UA) (Negative) Urine Ketones (Negative) Urine Blood (Negative) Urine Nitrite (Negative) Urine Bilirubin (Negative) Urine Urobilinogen (<2.0) mg/dL Ur Leukocyte Esterase (Negative) 10/22/20 10/22/20 Range/Units 20:40 22:00 WBC (3.8-10.6) k/uL RBC (3.80-5.40) m/uL Hgb (11.4-16.0) gm/dL Hct (34.0-46.0) % MCV (80.0-100.0) fL MCH (25.0-35.0) pg MCHC (31.0-37.0) g/dL RDW (11.5-15.5) % Plt Count (150-450) k/uL MPV Neutrophils % % Lymphocytes % % Monocytes % % Eosinophils % % Basophils % % Neutrophils # (1.3-7.7) k/uL Lymphocytes # (1.0-4.8) k/uL Monocytes # (0-1.0) k/uL Eosinophils # (0-0.7) k/uL Basophils # (0-0.2) k/uL PT (9.0-12.0) sec INR (<1.2) APTT (22.0-30.0) sec Sodium (137-145) mmol/L Potassium (3.5-5.1) mmol/L Chloride (98-107) mmol/L Carbon Dioxide (22-30) mmol/L Anion Gap mmol/L BUN (7-17) mg/dL Creatinine (0.52-1.04) mg/dL Est GFR (CKD-EPI)AfAm (>60 ml/min/1.73 sqM) Est GFR (CKD-EPI)NonAf (>60 ml/min/1.73 sqM) Glucose (74-99) mg/dL Plasma Lactic Acid Ashok 0.8 (0.7-2.0) mmol/L Calcium (8.4-10.2) mg/dL Total Bilirubin (0.2-1.3) mg/dL AST (14-36) U/L ALT (4-34) U/L Alkaline Phosphatase (38-126) U/L Total Protein (6.3-8.2) g/dL Albumin (3.5-5.0) g/dL Lipase (23-300) U/L Urine Color Colorless Urine Appearance Clear (Clear) Urine pH 7.5 (5.0-8.0) Ur Specific [place] 1.004 (1.001-1.035) Urine Protein Negative (Negative) Urine Glucose (UA) Negative (Negative) Urine Ketones Negative (Negative) Urine Blood Negative (Negative) Urine Nitrite Negative (Negative) Urine Bilirubin Negative (Negative) Urine Urobilinogen <2.0 (<2.0) mg/dL Ur Leukocyte Esterase Negative (Negative) Disposition Clinical Impression: Neck pain, Shoulder pain, Abdominal pain, Mood disorder Disposition: HOME SELF-CARE Condition: Stable Instructions (If sedation given, give patient instructions): Back Pain (ED), Chronic Neck Pain (DC) Additional Instructions: Follow up with Dr. Gil and Dr. Munguia. Return to the ED for any new or worsen ing symptoms. Prescriptions: Hydrocodone/Acetaminophen [Ceiba 5-325] 1 tab PO Q6HR PRN #12 tab PRN Reason: Pain Ondansetron Odt [Zofran Odt] 4 mg PO Q8HR PRN #10 tab PRN Reason: Nausea Is patient prescribed a controlled substance at d/c from ED?: Yes When asked, does pt state using other controlled substances?: No If prescribed controlled substance>3 days was MAPS reviewed?: Prescribed <3 Days If opioid is for acute pain is fill amount 7 days or less?: Yes If Rx opioid, was Start Talking consent form obtained?: Yes Referrals: Paul Munguia [Primary Care Provider] - 1-2 days Time of Disposition: 23:03
[2020-10-22 23:21] VITALS: BP 128/71; PULSE 81; TEMP 98.9
--- NOTE | 2020-10-22 23:37 | XR ---
EXAMINATION TYPE: XR shoulder complete RT DATE OF EXAM: 10/22/2020 COMPARISON: NONE HISTORY: Pain TECHNIQUE: 3 views FINDINGS: I see no fracture nor dislocation. Joint spaces are fairly normal. There are no pathologic calcifications. IMPRESSION: Negative right shoulder exam.
== END 2020-10-23 | disposition home or self-care (01) ==
LOC: EC 18:26
DX: M25.511 Pain in right shoulder (principal); R10.9 Unspecified abdominal pain; M54.2 Cervicalgia; F39 Unspecified mood [affective] disorder; I10 Essential (primary) hypertension; J44.9 Chronic obstructive pulmonary disease, unspecified; F32.9 Major depressive disorder, single episode, unspecified; F17.200 Nicotine dependence, unspecified, uncomplicated; Z79.51 Long term (current) use of inhaled steroids; Z79.899 Other long term (current) drug therapy; Z88.5 Allergy status to narcotic agent
CPT/HCPCS: 36415; 80053; 83605; 83690; 85025; 85610; 85730; 81003; 73030; 72125; 70450; 99284; 96374; 96375; 96361; 96372; J2270; J2405

== ENCOUNTER → 2020-10-28 | Day surgery (SDC) | payer MEDICARE, OTHER ==
[~2020-10-28] MED LIST: LACTATED RINGERS 1,000 ML IV SCH; PROPOFOL 10 MG/ML 20 ML VIAL IV ONE
[2020-10-28 12:08] VITALS: TEMP 98.7
--- NOTE | 2020-10-28 13:16 | P.PCN ---
Date of Procedure: 10/28/20 Description of Procedure: Brief history: Patient is a pleasant 55-year-old female scheduled for an elective upper endoscopy as well as colonoscopy as a part of evaluation of epigastric abdominal pain and change in bowel habits. She reports long-standing history of pain in the epigastric region of her abdomen and left lower quadrant. She also reports alternating constipation and diarrhea. Procedure performed: Esophagogastroduodenoscopy with biopsy Colonoscopy failed/aborted due to poor prep Estimated blood loss: Minimal. Preoperative diagnosis: Epigastric pain, change in bowel habits, no prior endoscopy. Anesthesia: MAC Procedure: After informed consent was obtained from the patient was brought into the endoscopy unit and IV sedation was administered by anesthesia under continuous monitoring. Initially upper endoscopy was done. The Olympus GF 190 video endoscope was inserted into the mouth and esophagus intubated without any difficulty and was gradually advanced into the stomach and duodenum and carefully examined. The bulb and second part of the duodenum appeared normal, with biopsies taken. The scope was then withdrawn into the stomach adequately insufflated with air and upon careful examination the antrum and body, cardia and fundus appeared normal, except for some mild scattered erythema in the antrum and body suggestive of mild gastritis with biopsies taken. The scope was then withdrawn into the esophagus. The GE junction was located at 38 cm to the incisors and biopsied. It appeared regular with no erythema erosions or ulcerations. Rest of the esophagus appeared normal. Patient tolerated the procedure well. At this time the patient continued to remain sedation. Initial digital rectal examination was normal. Olympus CF 190 video colonoscope was then inserted into the rectum and gradually advanced however large amount of solid stool was found throughout the rectum and the procedure was aborted secondary to a poor prep. Impression: 1. Mild gastritis. Biopsies of the duodenum, GE junction and antrum and body. 2. Failed/aborted colonoscopy secondary to poor prep. Recommendations: Findings of this examination were discussed with the patient. Okay to resume diet. Okay to resume medications. Await pathology from biopsies. Patient can be rescheduled for a colonoscopy with alternate prep.
[2020-10-28 13:30] VITALS: BP 143/91; RESP 20
[2020-10-28 13:44] VITALS: PULSE 78
== END ==
LOC: ORWHC2ENDO 11:31
PROVIDERS: ATTEND Internal Medicine
DX: K29.50 Unspecified chronic gastritis without bleeding (principal); B96.81 Helicobacter pylori [H. pylori] as the cause of diseases classified elsewhere; R19.4 Change in bowel habit; Z53.09 Procedure and treatment not carried out because of other contraindication; I10 Essential (primary) hypertension; J44.9 Chronic obstructive pulmonary disease, unspecified; M79.7 Fibromyalgia; M19.90 Unspecified osteoarthritis, unspecified site; Z88.5 Allergy status to narcotic agent; Z79.82 Long term (current) use of aspirin; Z79.899 Other long term (current) drug therapy; Z90.710 Acquired absence of both cervix and uterus; Z98.890 Other specified postprocedural states; Z72.0 Tobacco use
CPT/HCPCS: 43239; 45330; J2704; 88305; 88342

== ENCOUNTER 2020-11-07 17:23 | Observation (INO) | payer MEDICARE, OTHER ==
[2020-11-07] MEDS ORDERED: NALOXONE 0.4 MG/ML 1 ML VIAL IVP STA (17:38)
--- NOTE | 2020-11-07 17:42 | ED ---
General Adult HPI - General Stated complaint: weakness Time Seen by Provider: 11/07/20 17:31 - History of Present Illness Initial comments: Dictation was produced using [employer] dictation software. please excuse any grammatical, word or spelling errors. This patient was cared for during a federal and state declared state of emergency secondary to Covid 19 Chief Complaint: 55-year-old -[place] female past medical history of fibronodular, hypertension degenerative disc disease presents with altered mental status. History of Present Illness: The 55-year-old female she was brought in by EMS. Patient was having a wet appointment with her primary care physician. Primary care physician was concerned because of the way she is behaving. They're concerned she was according to EMS having signs of altered mental status. EMS was called for a wellness check. EMS arrived on scene patient was behaving strangely. EMS reports that she does not have any strokelike symptoms. Patient lives alone there scattered pill bottles all over the house. Patient's daughter lives in [place]. Patient is a poor historian. Patient didn't exhibit any drug use. She takes gabapentin. She reports she has fibromyalgia. Unable to obtain secondary mental status. PHYSICAL EXAM: General Impression: Alert and oriented x3, but her speech, pinpoint pupils on a respiratory distress, mildly lethargic HEENT: Normocephalic atraumatic, extra-ocular movements intact, pinpoint pupils, mucous membranes moist. Cardiovascular: Heart regular rate and rhythm Chest: Able to complete full sentences, no retractions, no tachypnea Abdomen: abdomen soft, non-tender, non-distended, no organomegaly Musculoskeletal: Pulses present and equal in all extremities, no peripheral edema Motor: Weakness of all her extremities, she has a conjugate leading tremor of her upper extremities Neurological: CN II-XII grossly intact, sensitive to painful stimuli of all extremities Skin: Intact with no visualized rashes ED course: 55 year old female presents to the emergency department for altered mental status. Patient does not have any focal neurologic deficits. She has equal weakness of all extremities. He doesn't pinpoint pupils. Patient ordered for Narcan. Narcan had no effect. Laboratory evaluations obtained. CBC, coag panel, metabolic panel is unremarkable. Serum alcohol is negative. Computed tomography scan of the brain and chest x-ray shows no acute processes. More history was obtained from daughter over web chat using patient's phone. Daughter states that this is her second visit and she feels as though patient is not safe to go home given that she lives by herself as well as medications to take. She states that patient has been feeling weak and unable to care for herself. Case is discussed with Dr. Mimi Nuno is willing to accept patients care. Neurology will be consulted. EKG interpretation: Ventricular rate 81, normal sinus rhythm, MI interval 150, QRS 96, QTC 471. No MI prolongation, no QTC prolongation, no ST or T-wave changes noted. EKG compared to 2019 showing no changes. Overall, this EKG is unremarkable - Related Data Home Medications Medication Instructions Recorded Confirmed Gabapentin [Neurontin] 300 mg PO BID 01/24/18 11/07/20 FLUoxetine HCL 40 mg PO DAILY 08/26/20 11/07/20 Montelukast [Singulair] 10 mg PO HS 08/26/20 11/07/20 traZODone HCL 300 mg PO HS PRN 08/26/20 11/07/20 amLODIPine [Norvasc] 2.5 mg PO DAILY 10/22/20 11/07/20 Amoxicillin 500 mg PO QID 11/07/20 11/07/20 Clarithromycin 500 mg PO BID 11/07/20 11/07/20 DULoxetine HCL [Cymbalta] 60 mg PO DAILY 11/07/20 11/07/20 Previous Rx's Medication Instructions Recorded Ondansetron Odt [Zofran Odt] 4 mg PO Q8HR PRN #10 tab 10/22/20 Allergies Allergy/AdvReac Type Severity Reaction Status Date / Time hydromorphone [From Dilaudid] Allergy Nausea & Verified 11/07/20 18:50 Vomiting Review of Systems ROS Statement: Those systems with pertinent positive or pertinent negative responses have been documented in the HPI. ROS Other: All systems not noted in ROS Statement are negative. Past Medical History Past Medical History: COPD, Fibromyalgia, Hypertension, Osteoarthritis (OA) Additional Past Medical History / Comment(s): degenerative disc disease History of Any Multi-Drug Resistant Organisms: None Reported Past Surgical History: Appendectomy, Hernia Repair, Hysterectomy Additional Past Surgical History / Comment(s): total hysterectomy, umbilical hernia repair Past Anesthesia/Blood Transfusion Reactions: No Reported Reaction Past Psychological History: Depression Smoking Status: Current every day smoker Past Alcohol Use History: None Reported Past Drug Use History: None Reported - Past Family History Mother Family Medical History: Cancer Additional Family Medical History / Comment(s): cervical cancer Father Family Medical History: No Reported History Additional Family Medical History / Comment(s): "he was killed" Course Vital Signs 11/07/20 11/07/20 17:34 19:01 Pulse Rate 84 Respiratory 18 14 Rate Blood Pressure 160/94 O2 Sat by Pulse 100 Oximetry Medical Decision Making - Lab Data Result diagrams: 11/07/20 17:37 11/07/20 17:37 Lab Results 11/07/20 11/07/20 11/07/20 Range/Units 17:37 17:37 17:37 WBC 6.3 (3.8-10.6) k/uL RBC 4.15 (3.80-5.40) m/uL Hgb 12.7 (11.4-16.0) gm/dL Hct 37.4 (34.0-46.0) % MCV 90.0 (80.0-100.0) fL MCH 30.7 (25.0-35.0) pg MCHC 34.1 (31.0-37.0) g/dL RDW 12.8 (11.5-15.5) % Plt Count 227 (150-450) k/uL MPV 7.7 Neutrophils % 49 % Lymphocytes % 41 % Monocytes % 5 % Eosinophils % 2 % Basophils % 1 % Neutrophils # 3.1 (1.3-7.7) k/uL Lymphocytes # 2.6 (1.0-4.8) k/uL Monocytes # 0.3 (0-1.0) k/uL Eosinophils # 0.1 (0-0.7) k/uL Basophils # 0.1 (0-0.2) k/uL PT (9.0-12.0) sec INR (<1.2) APTT (22.0-30.0) sec Sodium 139 (137-145) mmol/L Potassium 4.3 (3.5-5.1) mmol/L Chloride 107 (98-107) mmol/L Carbon Dioxide 25 (22-30) mmol/L Anion Gap 7 mmol/L BUN 16 (7-17) mg/dL Creatinine 0.75 (0.52-1.04) mg/dL Est GFR (CKD-EPI)AfAm >90 (>60 ml/min/1.73 sqM) Est GFR (CKD-EPI)NonAf >90 (>60 ml/min/1.73 sqM) Glucose 78 (74-99) mg/dL POC Glucose (mg/dL) (75-99) mg/dL POC Glu [employer] ID Calcium 9.9 (8.4-10.2) mg/dL Magnesium 2.0 (1.6-2.3) mg/dL Total Bilirubin 0.2 (0.2-1.3) mg/dL AST 22 (14-36) U/L ALT 12 (4-34) U/L Alkaline Phosphatase 93 (38-126) U/L Ammonia 25 (<30) umol/L Total Protein 7.2 (6.3-8.2) g/dL Albumin 4.2 (3.5-5.0) g/dL Serum Alcohol <10 mg/dL 11/07/20 11/07/20 Range/Units 17:39 19:46 WBC (3.8-10.6) k/uL RBC (3.80-5.40) m/uL Hgb (11.4-16.0) gm/dL Hct (34.0-46.0) % MCV (80.0-100.0) fL MCH (25.0-35.0) pg MCHC (31.0-37.0) g/dL RDW (11.5-15.5) % Plt Count (150-450) k/uL MPV Neutrophils % % Lymphocytes % % Monocytes % % Eosinophils % % Basophils % % Neutrophils # (1.3-7.7) k/uL Lymphocytes # (1.0-4.8) k/uL Monocytes # (0-1.0) k/uL Eosinophils # (0-0.7) k/uL Basophils # (0-0.2) k/uL PT 10.8 (9.0-12.0) sec INR 1.0 (<1.2) APTT 24.6 (22.0-30.0) sec Sodium (137-145) mmol/L Potassium (3.5-5.1) mmol/L Chloride (98-107) mmol/L Carbon Dioxide (22-30) mmol/L Anion Gap mmol/L BUN (7-17) mg/dL Creatinine (0.52-1.04) mg/dL Est GFR (CKD-EPI)AfAm (>60 ml/min/1.73 sqM) Est GFR (CKD-EPI)NonAf (>60 ml/min/1.73 sqM) Glucose (74-99) mg/dL POC Glucose (mg/dL) 81 (75-99) mg/dL POC Glu [employer] HAYLIE BaileychinyereEmileeDebbie Calcium (8.4-10.2) mg/dL Magnesium (1.6-2.3) mg/dL Total Bilirubin (0.2-1.3) mg/dL AST (14-36) U/L ALT (4-34) U/L Alkaline Phosphatase (38-126) U/L Ammonia (<30) umol/L Total Protein (6.3-8.2) g/dL Albumin (3.5-5.0) g/dL Serum Alcohol mg/dL Disposition Clinical Impression: Weakness Disposition: ADMITTED IP TO THIS [facility] Condition: Fair Referrals: Calista Gil MD [Primary Care Provider] - 1-2 days Decision Time: 22:26
[2020-11-07 19:47] LABS: Glucose,Whole Blood 81 mg/dL (75-99)
[2020-11-07 20:05] LABS: Basophils # (A) 0.1 k/uL (0-0.2); Basophils % (A) 1 %; Eosinophils # (A) 0.1 k/uL (0-0.7); Eosinophils % (A) 2 %; HCT 37.4 % (34.0-46.0); HGB 12.7 gm/dL (11.4-16.0); Lymphocytes # (A) 2.6 k/uL (1.0-4.8); Lymphocytes % (A) 41 %; MCH 30.7 pg (25.0-35.0); MCHC 34.1 g/dL (31.0-37.0); Mean Platelet Volume 7.7; Monocytes # (A) 0.3 k/uL (0-1.0); Monocytes % (A) 5 %; Neutrophils # (A) 3.1 k/uL (1.3-7.7); Neutrophils % (A) 49 %; Platelet Count 227 k/uL (150-450); RBC 4.15 m/uL (3.80-5.40); RDW 12.8 % (11.5-15.5); WBC 6.3 k/uL (3.8-10.6)
[2020-11-07 20:18] LABS: ALT 12 U/L (4-34); AST 22 U/L (14-36); African American GFR (CKD) >90 (>60 ml/min/1.73 sqM); Albumin 4.2 g/dL (3.5-5.0); Alcohol <10 mg/dL; Alkaline Phosphatase 93 U/L (38-126); Anion Gap 7 mmol/L; Blood Urea Nitrogen 16 mg/dL (7-17); Calcium 9.9 mg/dL (8.4-10.2); Carbon Dioxide 25 mmol/L (22-30); Chloride 107 mmol/L (98-107); Glucose 78 mg/dL (74-99); Non-African American GFR(CKD) >90 (>60 ml/min/1.73 sqM); Potassium 4.3 mmol/L (3.5-5.1); Sodium 139 mmol/L (137-145); Total Bilirubin 0.2 mg/dL (0.2-1.3); Total Protein 7.2 g/dL (6.3-8.2)
[2020-11-07 20:22] LABS: Partial Thromboplastin Time 24.6 sec (22.0-30.0); Prothrombin Time 10.8 sec (9.0-12.0)
--- NOTE | 2020-11-07 20:37 | XR ---
EXAMINATION: XR chest 1V portable DATE AND TIME: 11/07/2020 7:22 PM CLINICAL INDICATION: PHH; altered mental status TECHNIQUE: AP upright portable COMPARISON: RadiograpSh 12/19/2019 FINDINGS: Allowing for differences in radiographic technique between the 2 studies, the lungs appear to be frances r and well expanded bilaterally. The pleural spaces are negative. The cardiac silhouette is not enlarged. The remainder of the mediastinal silhouette is unremarkable. The skeletal structures and soft tissues are negative for acute findings. IMPRESSION: No definite acute radiographic process.
--- NOTE | 2020-11-07 20:44 | CT ---
EXAMINATION: CT brain wo con DATE AND TIME: 11/07/2020 8:14 PM CLINICAL INDICATION: PHH; altered mental status TECHNIQUE: Standard departmental protocol DLP: 1247.4 mGy-cm COMPARISON: 10/22/2020 FINDINGS: The calvarium is intact. There is no intracranial hemorrhage. There is no intracranial mass or mass effect. No definite new intra-axial or extra-axial attenuation defect. The paranasal sinuses, middle ear cavities, and mastoid sinus air cells are clear. The orbits are unremarkable. IMPRESSION: NO ACUTE PROCESS.
[2020-11-07] MEDS ORDERED: NALOXONE 0.4 MG/ML 1 ML VIAL IV PRN (22:22)
[2020-11-08] MEDS: SODIUM CHLORIDE 0.9% 1,000 ML IV SCH ×2 (00:26→14:29)
[2020-11-08 00:44] LABS: Amorphous Sediment,Urine Moderate /hpf; Appearance,Urine Turbid (Clear); Bilirubin,Urine Negative (Negative); Blood,Urine Negative (Negative); Color,Urine Yellow; Glucose,Urine (UA) Negative (Negative); Ketones,Urine Negative (Negative); Leukocyte Esterase,Urine Negative (Negative); Mucus,Urine Rare /hpf; Nitrite,Urine Negative (Negative); PH, Urine 7.5 (5.0-8.0); Protein,Urine Negative (Negative); RBC,Urine 1 /hpf (0-5); Specific Gravity,Urine 1.015 (1.001-1.035); Squamous Epithelial Cell,Urine 3 /hpf (0-4); Urobilinogen,Urine <2.0 mg/dL (<2.0); WBC,Urine 1 /hpf (0-5)
[2020-11-08] MEDS ORDERED: HYDROcodone/APAP 5-325MG 1 EACH TAB PO PRN (01:18)
[2020-11-08] MEDS ORDERED: MORPHINE SULFATE 2 MG/ML SYRINGE IVP STA (07:59)
[2020-11-08] MEDS ORDERED: traZODone HCL 100 MG TAB PO PRN ×2 (08:54→15:05)
[2020-11-08] MEDS ORDERED: GABAPENTIN 300 MG CAP PO SCH (09:00)
--- NOTE | 2020-11-08 09:49 | P.CNNES ---
History of Present Illness Consult date: 11/08/20 Requesting physician: Miguel Chirinos Reason for Consult: altered mental status History of Present Illness: This is a 55-year-old woman with medical history of hypertension, osteoarthritis, fibromyalgia who presented to the emergency department on 11/07/2020 who was sent by her primary care because of "way she was behaving". Patient was giving sporadic history and was not consistent with her history. She stated that she was feeling off yesterday and not feeling herself so her physician asked for 911 that to come to her house to about the patient. According to the patient that since October 2020 she's been having sporadic movement and while she was talking to me she had no movements then after 2 seconds she was having this irregular movement that was suppressed all of a sudden with further questioning. I asked the patient where was her irregular movement and she stated that I showing you. She stated that she was on gabapentin 300 mg 1 tablet 3 times a day and that was decreased to 1 tablet twice a day and she was frustrated that was decreased. She stated that she is on so many medications but she cannot tell me what medication she is on. She stated that she's been having starting since the October 2020. Patient was just tangential during the history. She did acknowledge that she has an anx iety. She resides on her own. Patient was getting frustrated why I am asking her questions. She denies seeing the psychiatrist. She stated that she had a biopsy for her pancreas and she cannot tell me when. Per medical records EMS arrived the scene and she was behaving strangely. Patient lives alone and that there appears to be scattered pills bottles all over the house. Workup in the hospital consisted of: Initial vital signs: Pressure of 160/94, heart rate of 84, respiratory of 18, temperature of 98.2 Fahrenheit oral and pulse ox of hypertension at room air. Since the patient been the hospital she's been afebrile. CT of the head is reported as no acute process. EKG is reported as normal sinus rhythm. Normal EKG. Chest x-rays reported as no definitive acute radiographic process. Initial white blood cell is 6.3 which is normal. Sodium is 139 which is normal. Liver function test was also normal AST of 22 and ALT of 12. Ammonia is 25 which is normal. Serum alcohol <10. Review of Systems Review of system is limited but the prone positive and negative as per HPI. Past Medical History Past Medical History: COPD, Fibromyalgia, Hypertension, Osteoarthritis (OA) Additional Past Medical History / Comment(s): degenerative disc disease History of Any Multi-Drug Resistant Organisms: None Reported Past Surgical History: Appendectomy, Hernia Repair, Hysterectomy Additional Past Surgical History / Comment(s): total hysterectomy, umbilical hernia repair, pts states "2 perforated vagina" Past Anesthesia/Blood Transfusion Reactions: No Reported Reaction Past Psychological History: Depression Additional Psychological History / Comment(s): pt stated "i am well controlled by the meds i take" Smoking Status: Current every day smoker Past Alcohol Use History: None Reported Additional Past Alcohol Use History / Comment(s): started at age 9 smokes 1/2 ppd Past Drug Use History: None Reported - Past Family History Mother Family Medical History: Cancer Additional Family Medical History / Comment(s): cervical cancer Father Family Medical History: No Reported History Additional Family Medical History / Comment(s): "he was killed" Medications and Allergies Home Medications Medication Instructions Recorded Confirmed Type Gabapentin [Neurontin] 300 mg PO BID 01/24/18 11/07/20 History FLUoxetine HCL 40 mg PO DAILY 08/26/20 11/07/20 History Montelukast [Singulair] 10 mg PO HS 08/26/20 11/07/20 History traZODone HCL 300 mg PO HS PRN 08/26/20 11/07/20 History Ondansetron Odt [Zofran Odt] 4 mg PO Q8HR PRN #10 tab 10/22/20 11/07/20 Rx amLODIPine [Norvasc] 2.5 mg PO DAILY 10/22/20 11/07/20 History Amoxicillin 500 mg PO QID 11/07/20 11/07/20 History Clarithromycin 500 mg PO BID 11/07/20 11/07/20 History DULoxetine HCL [Cymbalta] 60 mg PO DAILY 11/07/20 11/07/20 History Allergies Allergy/AdvReac Type Severity Reaction Status Date / Time hydromorphone [From Dilaudid] Allergy Nausea & Verified 11/07/20 18:50 Vomiting Physical Examination - Vital Signs Vital Signs: Vital Signs Temp Pulse Pulse Resp BP BP Pulse Ox 11/08/20 08:00 98.2 F 78 18 112/77 98 11/08/20 02:00 97.7 F 92 18 122/75 96 11/07/20 23:02 98.2 F 81 17 118/68 100 11/07/20 22:40 18 11/07/20 19:01 14 11/07/20 17:34 84 18 160/94 100 Intake and Output 11/07/20 11/08/20 11/08/20 22:59 06:59 14:59 Other: # Voids 2 Weight 81.647 kg GENERAL: The patient is lying in bed and is not in acute distress. CHEST: The heart rate is regular rate rhythm. No murmurs to auscultation. LUNG: Clear to auscultation bilaterally no wheezing noted throughout. Not labored breathing. ABDOMEN/GI: Bowel sounds present in all 4 quadrants. No tenderness to palpation throughout. NEUROLOGICAL: Higher mental function: The patient is awake, alert, oriented to self, place and time. Patient was offended that I asked her the month and the year and she stated that she was not "an idiot". Prior to her getting mad she was having the this erratic movements of the upper and lower extremity but when she got mad that I asked her these questions all of a sudden the movement was resolved. Patient is following simple commands. No aphasia and no neglect. During the examination she was having stuttering but resolved with distraction. Cranial nerves: The pupils are round, equal and reactive to light and accommodation. Visual fang are full to confrontation throughout. Extraocular movement is intact no nystagmus is noted. Facial sensation is normal to touch throughout. The facial strength is normal throughout. Hearing is normal bilaterally to hand rub. Tongue is midline and moved [id number] without any difficulty. No dysarthria is noted. Shoulder shrug is normal bilaterally. Motor: Gait was assessed and with distraction was walking without difficulty. The strength is able to move blood sugars above gravity and I could not assess individual full-strength because of the patient's effort related but the patient was able to stand up on her feet on her own and was able to lift up things on her own without any difficulty I will feel the patient has any focal weakness. Normal tone and bulk. Patient was showing the sporadic movements of the upper extremities and sometimes lower extremities and that resolved with distraction. Cerebellum: Could not assess because of cooperation. Sensation: Sensation was inconsistent. Reflexes (right/left): 2+ throughout and 1+ at ankles. Plantars are downgoing bilaterally. Results Urinalysis the colors that yellow, appears to her bed, right nitrate was negative, leukocyte is negative, for Terrace segment is moderate. - Laboratory Findings CBC and BMP: 11/07/20 17:37 11/07/20 17:37 Abnormal Lab Findings: Abnormal Labs 11/08/20 00:21 Urine Appearance Turbid H Amorphous Sediment Moderate H Urine Mucus Rare H Assessment and Plan Assessment: This is a 55-year-old woman who presented to the emergency department on 11/07/2020 who was sent by her primary care because of "way she was behaving". Patient has irregular movements of bilateral upper and lower extremities that are inconsistent and that resolves with distraction. She has conversion disorder. Her altered mental status on presentation likely due to medication (on polypharmacy and one is Gabapentin) Hypertension Osteoarthritis Fibromyalgia Plan: Urine drug screen is pending. I ordered TSH, Vitamin B12, folate level. She does not need an EEG since this is not a seizure. Recommend Physical therapy as well as occupation therapy. Tala has [place] PRN ordered, and was given Morphine in AM. Please avoid any Narcotic/Opoids or sedative that can cause mental change. Also please avoid gabapentin which also can cause mental status change. Psychiatry team is consulted. The patient needs to follow-up with a psychiatrist as an outpatient. Thank you for the consultation. The plan was discussed with the patient's nurse and primary attending. UPDATE: Patient vitamin B12 is 1103 (normal). TSH is 1.750 which is normal. Pending folate level. The folate is low then I recommend starting 1 mg daily. There is no further neurological workup needed. We will sign off. Please reconsult if needed Waylon Cullen MD Neuro-Hospitalist Time with Patient: Greater than 30
[2020-11-08 10:11] LABS: Urine Alcohol Negative (Negative); Urine Barbiturate Negative (Negative); Urine Cocaine Negative (Negative); Urine Methadone Negative (Negative); Urine Opiates Negative (Negative); Urine Phencyclidine Negative (Negative)
[2020-11-08] MEDS ORDERED: ONDANSETRON 4 MG/2 ML VIAL IVP PRN (10:30)
[2020-11-08] MEDS ORDERED: ACETAMINOPHEN TAB 325 MG TAB PO PRN (11:28)
[2020-11-08] MEDS: amLODIPine 2.5 MG TAB PO SCH (11:52)
[2020-11-08] MEDS: FLUoxetine HCL 20 MG CAP PO SCH (11:52)
[2020-11-08] MEDS ORDERED: OLANZapine 5 MG TAB PO STA (14:00)
[2020-11-08] MEDS: CYCLOBENZAPRINE 5 MG TAB PO PRN (14:07)
[2020-11-08] MEDS ORDERED: IBUPROFEN 400 MG TAB PO PRN (15:18)
[2020-11-08] MEDS ORDERED: OLANZapine 5 MG TAB PO ONE (18:00)
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
[2020-11-08] MEDS: GABAPENTIN 100 MG CAP PO SCH (20:49)
[2020-11-08] MEDS: OLANZapine 5 MG TAB PO SCH (20:50)
--- NOTE | 2020-11-08 22:42 | P.HPIM ---
History of Present Illness H&P Date: 11/08/20 Chief Complaint: bizzare behavior Janae Sung is a 55 yo F with PMH of depression, fibromyalgia, COPD who was brought to the ED after a wellness check. She apparently had a virtual visit with her primary physician and was noted to be slurring words and demonstrating a disorganized thought process so EMS was called for a wellness check. On arrival they found bottles throughout pt's house and she had also been taking percocet. Pt states she has been having a L arm tremor as well as weakness in both her legs since [place]. She additionally complains of chronic pain. Denies any specific trigger just feels her anxiety has worsened. On presentation vitals and labs stable, CT brain wnl. Review of Systems All systems: negative Constitutional: Reports weakness, Denies chills, Denies fever Eyes: denies blurred vision, denies pain Ears, nose, mouth and throat: Denies headache, Denies sore throat Cardiovascular: Denies chest pain, Denies shortness of breath Respiratory: Denies cough Gastrointestinal: Denies abdominal pain, Denies diarrhea, Denies nausea, Denies vomiting Genitourinary: Denies dysuria, Denies hematuria Musculoskeletal: Denies myalgias Integumentary: Denies pruritus, Denies rash Neurological: Reports balance difficulties, Reports confusion, Reports lack of c oordination, Reports spasticity, Denies numbness, Denies weakness Psychiatric: Reports anxiety, Denies depression Endocrine: Denies fatigue, Denies weight change Past Medical History Past Medical History: COPD, Fibromyalgia, Hypertension, Osteoarthritis (OA) Additional Past Medical History / Comment(s): degenerative disc disease History of Any Multi-Drug Resistant Organisms: None Reported Past Surgical History: Appendectomy, Hernia Repair, Hysterectomy Additional Past Surgical History / Comment(s): total hysterectomy, umbilical hernia repair, pts states "2 perforated vagina" Past Anesthesia/Blood Transfusion Reactions: No Reported Reaction Past Psychological History: Depression Additional Psychological History / Comment(s): pt stated "i am well controlled by the meds i take" Smoking Status: Current every day smoker Past Alcohol Use History: None Reported Additional Past Alcohol Use History / Comment(s): started at age 9 smokes 1/2 ppd Past Drug Use History: None Reported - Past Family History Mother Family Medical History: Cancer Additional Family Medical History / Comment(s): cervical cancer Father Family Medical History: No Reported History Additional Family Medical History / Comment(s): "he was killed" Medications and Allergies Home Medications Medication Instructions Recorded Confirmed Type Gabapentin [Neurontin] 300 mg PO BID 01/24/18 11/07/20 History FLUoxetine HCL 40 mg PO DAILY 08/26/20 11/07/20 History Montelukast [Singulair] 10 mg PO HS 08/26/20 11/07/20 History traZODone HCL 300 mg PO HS PRN 08/26/20 11/07/20 History Ondansetron Odt [Zofran Odt] 4 mg PO Q8HR PRN #10 tab 10/22/20 11/07/20 Rx amLODIPine [Norvasc] 2.5 mg PO DAILY 10/22/20 11/07/20 History Amoxicillin 500 mg PO QID 11/07/20 11/07/20 History Clarithromycin 500 mg PO BID 11/07/20 11/07/20 History DULoxetine HCL [Cymbalta] 60 mg PO DAILY 11/07/20 11/07/20 History Allergies Allergy/AdvReac Type Severity Reaction Status Date / Time hydromorphone [From Dilaudid] Allergy Nausea & Verified 11/07/20 18:50 Vomiting Physical Exam Vitals: Vital Signs Temp Pulse Pulse Resp BP BP Pulse Ox 11/08/20 20:46 98.1 F 83 15 149/77 99 11/08/20 14:00 98.2 F 88 18 111/62 100 11/08/20 08:00 98.2 F 78 18 112/77 98 11/08/20 02:00 97.7 F 92 18 122/75 96 11/07/20 23:02 98.2 F 81 17 118/68 100 11/07/20 22:40 18 Intake and Output 11/08/20 11/08/20 11/08/20 06:59 14:59 22:59 Other: # Voids 2 General: well nourished, well developed, NAD. Vitals reviewed Eyes: PERRL, EOMI, conjunctiva normal HENT: normocephalic, mucus membranes moist Neck: supple, no JVD Lungs: normal respiratory effort, no wheezes or rales CV: Regular rate and rhythm, no murmur. Peripheral pulses 2+ Abdomen: soft, nondistended, no organomegaly Lymph: no cervical or axillary LAD Skin: warm and dry. Neuro: A&Ox3, RUE with gross and fine shaking that worsened with focus and red uced when she was talking Psych: anxious, depressed mood, disorganized thought process Results CBC & Chem 7: 11/07/20 17:37 11/07/20 17:37 Labs: Abnormal Lab Results - Last 24 Hours (Table) 11/08/20 11/08/20 Range/Units 00:21 10:22 Vitamin B12 1103.0 H (200.0-944.0) pg/mL Urine Appearance Turbid H (Clear) Amorphous Sediment Moderate H (None) /hpf Urine Mucus Rare H (None) /hpf Thrombosis Risk Factor Assmnt - Choose All That Apply Each Factor Represents 1 point: Abnormal pulmonary function (COPD), Age 41-60 years, Obesity (BMI >25) Other Risk Factors: No Other congenital or acquired thrombophilia - If yes, enter type in comment: No Thrombosis Risk Factor Assessment Total Risk Factor Score: 3 Thrombosis Risk Factor Assessment Level: Moderate Risk Assessment and Plan (1) Tremor Current Visit: Yes Status: Acute Code(s): R25.1 - TREMOR, UNSPECIFIED SNOMED Code(s): 61937773 (2) Altered mental status Current Visit: Yes Status: Acute Code(s): R41.82 - ALTERED MENTAL STATUS, UNSPECIFIED SNOMED Code(s): 287935264 (3) Conversion disorder Current Visit: Yes Status: Acute Code(s): F44.9 - DISSOCIATIVE AND CONVERSION DISORDER, UNSPECIFIED SNOMED Code(s): 44787950 (4) Major depressive disorder without psychotic features Current Visit: No Status: Acute Priority: High Code(s): F32.9 - MAJOR DEPRESSIVE DISORDER, SINGLE EPISODE, UNSPECIFIED SNOMED Code(s): 445731983 (5) Nicotine dependence Current Visit: No Status: Acute Priority: Low Code(s): F17.200 - NICOTINE DEPENDENCE, UNSPECIFIED, UNCOMPLICATED SNOMED Code(s): 89037167 Plan: 1. Altered mental status, secondary to uncontrolled anxiety and depression. Psychiatry consult 2. Tremor, suspect conversion disorder. Neurology consult. Discontinue gabapen tin and will consult psychiatry. Continue her prozac and cymbalta. Start flexeril bid prn for chronic pain 3. Chronic low back pain. Tylenol and ibuprofen 4. Recurrent major depression, uncontrolled 5. Fibromyalgia 6. HTN. Continue norvasc
[2020-11-09] MEDS: OLANZapine 5 MG TAB PO SCH ×3 (07:23→21:08)
[2020-11-09] MEDS: FLUoxetine HCL 20 MG CAP PO SCH (07:23)
[2020-11-09] MEDS: amLODIPine 2.5 MG TAB PO SCH (07:24)
[2020-11-09] MEDS: DULoxetine HCL 20 MG CAPSULE.DR PO SCH (07:24)
[2020-11-09] MEDS: CYCLOBENZAPRINE 5 MG TAB PO PRN ×3 (07:45→22:25)
--- NOTE | 2020-11-09 12:34 | P.PN ---
Progress Note - Text Progress Note Date: 11/09/20 Interval History: Patient was seen in her room. The patient was evaluated by Dr. Valentin who recommended inpatient psychiatric admission to reintroduce and stabilizie her medications. Today, the patient is presenting well and is not endorsing any suicidal or homicidal ideation, intention, and/or plan. The patient expresses that her primary issue is all her medications and interacting with each other causing her constant physical problems. Furthermore, she reports that "all the doctors are just never on the same page." She does state that she has 2 primary care physicians and has been following with [facility] for her mental health. She is currently not reporting any suicidal or homicidal ideation, intention, and/or plan. She is not reporting any auditory or visual hallucinations. She denies any paranoia or delusions. Review of the patient's notes reveal that the p atient is also likely displaying conversion disorder. This provider discussed at length that when under significant psychological stress, it is common for physical manifestations to occur such as difficulty with gait or physical pain. He informed her that the main treatment modality for such problems is frequent therapy and close outpatient follow-up. The patient initially wanted to just be discharged but later relented stating that she would like to come to the inpatient psychiatric unit for her medications to be readjusted so that they do not interact with each other. Mental Status Exam: General Appearance: Patient appears to be stated age is alert, directable, and cooperative. Hygiene and grooming appear fair. Behavior: Patient is calmly seated without any agitated behavior. Patient appears to be somewhat obstinate and demanding. Speech: Patient's speech is fluent and nonpressured. Mood/Affect: Mood is irritable, affect is congruent and irate at times but otherwise with appropriate range. Suicidality/Homicidality: Patient is not reporting any suicidal or homicidal ideation, intention, and/or plan. Perceptions: Patient is not reporting any auditory or visual hallucinations. Though content/process: There is no evidence of any delusional thought content and thought process is linear and goal-directed. Memory and concentration: AOX3, grossly intact for the purposes of this session Judgment and insight: Poor Assessment Major depressive disorder Plan: -The patient is willing to be voluntarily admitted to the psychiatric unit as per recommendation from Dr. Valentin for restabilization of her psychotropic medications. -When patient is medically stable, agree with transfer to the inpatient psychiatric unit. -Strongly recommend outpatient psychotherapy and close primary care physician follow-up for management of conversion disorder and somatic symptom disorder. -Medications: We will not make any medication adjustments today. We will continue her Cymbalta 20 mg by mouth daily with plans to discontinue this medication tomorrow to avoid serotonin syndrome. Continue Prozac 40 mg by mouth daily Continue Zyprexa 5 mg by mouth 3 times a day Continue trazodone 150 mg by mouth at bedtime when necessary
[2020-11-09] MEDS: GABAPENTIN 100 MG CAP PO SCH (21:08)
--- NOTE | 2020-11-09 23:25 | P.PN ---
Subjective Progress Note Date: 11/09/20 Principal diagnosis: Tremors Ms. Sung is a 55-year-old female with a past medical history of fibromyalgia, COPD, hypertension, osteoarthritis coming in to the hospital after a wellness check. Patient had a virtual visit with her PCP and was noted to have slurring of speech and demonstrated disorganized thought process so she was brought into the ED. Med EMS went to her house they found bottles of Percocet in her house. Patient states that she has been having tremors as well as weakness in both her legs since [place]. Patient had work-up done in the hospital with CT of the head that was negative for acute process, chest x-ray no acute cardiopulmonary process and her labs were within normal limits. She has been evaluated by neurology and psychiatric services. On 11/09/2020 -patient was seen and examined in her room. Patient just took a bath states that she is still continuing to have tremors. She denies having any chest pain or palpitations. No cough or difficulty breathing. No fever chills or rigors. No abdominal pain nausea vomiting or diarrhea. On reviewing her vitals temperature is 98.2, heart rate 69, respiratory rate 18, blood pressure 130 x 81 saturating at 98% on room air. No new labs from today. Active Medications Acetaminophen (Acetaminophen Tab 325 Mg Tab) 650 mg PO Q4HR PRN PRN Reason: Fever and/ or Pain Amlodipine Besylate (Amlodipine 2.5 Mg Tab) 2.5 mg PO DAILY [facility] Last Admin: 11/09/20 07:24 Dose: 2.5 mg Documented by: Cyclobenzaprine HCl (Cyclobenzaprine 5 Mg Tab) 5 mg PO BID PRN PRN Reason: Muscle Spasm Last Admin: 11/09/20 07:45 Dose: 5 mg Documented by: Duloxetine HCl (Duloxetine Hcl 20 Mg Capsule.Dr) 20 mg PO DAILY [facility] Stop: 11/11/20 14:00 Last Admin: 11/09/20 07:24 Dose: 20 mg Documented by: Fluoxetine HCl (Fluoxetine Hcl 20 Mg Cap) 40 mg PO DAILY [facility] Last Admin: 11/09/20 07:23 Dose: 40 mg Documented by: Gabapentin (Gabapentin 100 Mg Cap) 100 mg PO HS [facility] Last Admin: 11/08/20 20:49 Dose: 100 mg Documented by: Sodium Chloride (Saline 0.9%) 1,000 mls @ 20 mls/hr IV .Q24H [facility] Last Admin: 11/08/20 14:29 Dose: 20 mls/hr Documented by: Ibuprofen (Ibuprofen 400 Mg Tab) 400 mg PO TID PRN PRN Reason: pain Naloxone HCl (Naloxone 0.4 Mg/Ml 1 Ml Vial) 0.2 mg IV Q2M PRN PRN Reason: Opioid Reversal Olanzapine (Olanzapine 5 Mg Tab) 5 mg PO TID [facility] Last Admin: 11/09/20 07:23 Dose: 5 mg Documented by: Ondansetron HCl (Ondansetron 4 Mg/2 Ml Vial) 4 mg IVP Q6HR PRN PRN Reason: Nausea And Vomiting Last Admin: 11/08/20 11:43 Dose: 4 mg Documented by: Trazodone HCl (Trazodone Hcl 100 Mg Tab) 150 mg PO HS PRN PRN Reason: sleep Objective - Vital Signs Vital signs: Vital Signs Temp 98.2 F 11/09/20 07:20 Pulse 69 11/09/20 07:20 Resp 18 11/09/20 07:20 BP 130/81 11/09/20 07:20 Pulse Ox 98 11/09/20 07:20 Intake & Output 11/08/20 11/09/20 11/09/20 18:59 06:59 18:59 Intake Total 0 Balance 0 Intake: Oral 0 Other: # Voids 0 0 - Exam PHYSICAL EXAMINATION: GENERAL: The patient is alert and oriented X3, having tremors on and off. HEENT: Pupils are round and equally reacting to light. EOMI. No scleral icterus. No conjunctival pallor. Normocephalic, atraumatic. No pharyngeal erythema. No thyromegaly. CARDIOVASCULAR: S1 and S2 present. No murmurs, rubs, or gallops. PULMONARY: Chest is clear to auscultation, no wheezing or crackles. ABDOMEN: Soft, nontender, nondistended, normoactive bowel sounds. No palpable organomegaly. MUSCULOSKELETAL: No joint swelling or deformity. EXTREMITIES: No cyanosis, clubbing, or pedal edema. NEUROLOGICAL: No focal neurological deficits. SKIN: No rash - Labs CBC & Chem 7: 11/07/20 17:37 11/07/20 17:37 Labs: Abnormal Lab Results - Last 24 Hours (Table) 01/08/21 Range/Units 10:22 Vitamin B12 1103.0 H (200.0-944.0) pg/mL Assessment and Plan Assessment: ASSESSMENT Tremors Altered mental status changes could be secondary to uncontrolled anxiety and depression Chronic low back pain Recurrent major depression Fibromyalgia Hypertension Nicotine dependence PLAN: Patient was evaluated by neurology Dr. Cullen and advised to be off of narcotics, opioids or sedatives. Patient was also seen by psychiatric services and to be admitted to their unit on a voluntary basis and medically stable. Continue with the current medication regimen. Further recommendations to follow depending on the progress of the patient.
[2020-11-10] MEDS: SODIUM CHLORIDE 0.9% 1,000 ML IV SCH (03:22)
[2020-11-10] MEDS: DULoxetine HCL 20 MG CAPSULE.DR PO SCH (07:06)
[2020-11-10] MEDS: amLODIPine 2.5 MG TAB PO SCH (07:06)
[2020-11-10] MEDS: FLUoxetine HCL 20 MG CAP PO SCH (07:06)
[2020-11-10] MEDS: OLANZapine 5 MG TAB PO SCH (07:06)
[2020-11-10 07:07] LABS: Basophils % (A) 1 %; Eosinophils # (A) 0.2 k/uL (0-0.7); Eosinophils % (A) 4 %; HCT 36.3 % (34.0-46.0); Lymphocytes # (A) 2.8 k/uL (1.0-4.8); Lymphocytes % (A) 50 %; MCH 30.3 pg (25.0-35.0); MCHC 33.1 g/dL (31.0-37.0); MCV 91.4 fL (80.0-100.0); Mean Platelet Volume 7.4; Monocytes # (A) 0.3 k/uL (0-1.0); Monocytes % (A) 5 %; Neutrophils # (A) 2.2 k/uL (1.3-7.7); Neutrophils % (A) 39 %; Platelet Count 214 k/uL (150-450); RBC 3.97 m/uL (3.80-5.40); RDW 12.9 % (11.5-15.5); WBC 5.6 k/uL (3.8-10.6)
[2020-11-10 07:25] VITALS: BP 145/87; PULSE 74; RESP 18; TEMP 98
[2020-11-10] MEDS ORDERED: SENNOSIDES 8.6 MG TAB PO PRN (07:57)
[2020-11-10] MEDS ORDERED: MAGNESIUM HYDROXIDE 2,400 MG/10 ML CUP PO PRN (08:48)
[2020-11-10] MEDS ORDERED: CYCLOBENZAPRINE 5 MG TAB PO SCH (09:00)
--- NOTE | 2020-11-10 09:52 | P.DS ---
Providers Date of admission: 11/07/20 22:22 Expected date of discharge: 11/10/20 Attending physician: Asher Nuno MD Consults: 11/07/20 22:23 Consult Physician Routine Consulting Provider: Waylon Cullen Consult Reason/Comments: altered mental status Do you want consulting provider notified?: Yes 11/08/20 08:00 Consult Physician Urgent Consulting Provider: Tristin Gomez Consult Reason/Comments: family concerns Do you want consulting provider notified?: Yes Primary care physician: Calista Gil Hospital Course: Final diagnosis Tremors Altered mental status changes could be secondary to uncontrolled anxiety and depression Chronic low back pain Recurrent major depression Constipation Fibromyalgia Hypertension Nicotine dependence Full code Discharge disposition Patient is being transferred in a stable condition with guarded prognosis to [facility] psychiatric that for further evaluation. Patient will follow- up with Dr. Calista Gil upon discharge. Patient will need to follow-up with GI for outpatient colonoscopy once stabilized and discharged. Total time taken is greater than 35 minutes. Hospital course This is an 85-year-old male who was recently admitted with significant tremors and weakness in both legs and was being closely monitored. Patient was seen and evaluated by neurology recommending outpatient follow-up as needed and was also seen by psychiatry and patient is agreeable to voluntarily be admitted to the psychiatric unit for further evaluation. Patient is medically stable and cleared for transfer to [facility] psychiatric unit once a bed available. Medications have been adjusted and no further tremors or weakness in legs noted. Patient is having some mild constipation although did have a bowel movement yesterday stool softeners have been added. Patient was supposed to follow-up outpatient for a colonoscopy and instructed her to do so once discharged. Currently no reports of chest pain, shortness of breath, or p alpitations. Patient is afebrile. No reports of nausea or vomiting and patient is tolerating diet. Patient medically clear for transfer to inpatient psychiatric unit. On exam vital signs are stable. Temp is 98.0F, pulse is 74, respirations are 18, blood pressure is 145/87, oxygen saturation is 100% on room air. Cardio S1, S2 are muffled. Respiratory shows diminished breath sounds at the bases with no wheezing or rhonchi noted. Abdomen is soft and nontender. Nervous system shows no focal deficits. Please refer to medication reconciliation sheet for a list of medications. Patient Condition at Discharge: Stable Plan - Discharge Summary Discharge Rx Participant: Yes New Discharge Prescriptions: New DULoxetine HCL [Cymbalta] 20 mg PO DAILY capsule. Cyclobenzaprine [Flexeril] 5 mg PO TID tab Magnesium Hydroxide [Milk of Magnesia Concentrate] 2,400 mg PO DAILY PRN ml PRN Reason: Constipation Gabapentin [Neurontin] 100 mg PO HS cap Sennosides [Senokot] 8.6 mg PO BID PRN tab PRN Reason: Constipation OLANZapine [ZyPREXA] 5 mg PO TID tab Continue Gabapentin [Neurontin] 300 mg PO BID FLUoxetine HCL 40 mg PO DAILY Montelukast [Singulair] 10 mg PO HS traZODone HCL 300 mg PO HS PRN PRN Reason: sleep amLODIPine [Norvasc] 2.5 mg PO DAILY Ondansetron Odt [Zofran ODT] 4 mg PO Q8HR PRN #10 tab PRN Reason: Nausea Discontinued DULoxetine HCL [Cymbalta] 60 mg PO DAILY Clarithromycin 500 mg PO BID Amoxicillin 500 mg PO QID Discharge Medication List Gabapentin [Neurontin] 300 mg PO BID 01/24/18 [History] FLUoxetine HCL 40 mg PO DAILY 08/26/20 [History] Montelukast [Singulair] 10 mg PO HS 08/26/20 [History] traZODone HCL 300 mg PO HS PRN 08/26/20 [History] Ondansetron Odt [Zofran ODT] 4 mg PO Q8HR PRN #10 tab 10/22/20 [Rx] amLODIPine [Norvasc] 2.5 mg PO DAILY 10/22/20 [History] Cyclobenzaprine [Flexeril] 5 mg PO TID tab 11/10/20 [Rx] DULoxetine HCL [Cymbalta] 20 mg PO DAILY capsule. 11/10/20 [Rx] Gabapentin [Neurontin] 100 mg PO HS cap 11/10/20 [Rx] Magnesium Hydroxide [Milk of Magnesia Concentrate] 2,400 mg PO DAILY PRN ml 11/10/20 [Rx] OLANZapine [ZyPREXA] 5 mg PO TID tab 11/10/20 [Rx] Sennosides [Senokot] 8.6 mg PO BID PRN tab 11/10/20 [Rx] Follow up Appointment(s)/Referral(s): Calista Gil MD [Primary Care Provider] - 1-2 days [facility] Vis[facility] Nurse, [NON-STAFF] - 1-2 Days Patient Instructions/Handouts: Fluoxetine (By mouth), Trazodone (By mouth), Cyclobenzaprine (By mouth), Gabapentin (By mouth), Amlodipine (By mouth), Olanzapine (By mouth) Activity/Diet/Wound Care/Special Instructions: Patient is stable medically for transfer to inpatient psychiatric unit Activity as tolerated Continue current diet Follow-up outpatient with GI for colonoscopy once discharged Follow up primary care provider upon discharge Discharge Disposition: TRANSFER TO PSYCH HOSP/UNIT
[2020-11-10] MEDS ORDERED: NICOTINE 21MG/24HR PATCH TRANSDERM SCH (10:45)
[2020-11-10 11:57] LABS: African American GFR (CKD) 83.4 (60.0-200.0); Anion Gap 4.3 mmol/L (4.00-12.00); Calcium 9.3 mg/dL (8.7-10.3); Carbon Dioxide 26.7 mmol/L (21.6-31.8); Potassium 4.3 mmol/L (3.5-5.5)
== END 2020-11-10 14:55 | disposition home health service (06) ==
LOC: EC 17:23 → 5NMEDONC 22:22
PROVIDERS: ADMIT Family Medicine; ATTEND Family Medicine
DX: R25.1 Tremor, unspecified (principal); F44.4 Conversion disorder with motor symptom or deficit; R53.1 Weakness; R41.82 Altered mental status, unspecified; G89.29 Other chronic pain; M54.5 Low back pain; F32.9 Major depressive disorder, single episode, unspecified; K59.00 Constipation, unspecified; M79.7 Fibromyalgia; I10 Essential (primary) hypertension; F17.210 Nicotine dependence, cigarettes, uncomplicated; M19.90 Unspecified osteoarthritis, unspecified site; Z98.890 Other specified postprocedural states; F43.10 Post-traumatic stress disorder, unspecified; Z90.710 Acquired absence of both cervix and uterus; Z90.89 Acquired absence of other organs; Z80.49 Family history of malignant neoplasm of other genital organs; J44.9 Chronic obstructive pulmonary disease, unspecified; Z79.899 Other long term (current) drug therapy; Z88.5 Allergy status to narcotic agent
CPT/HCPCS: 96375; 96374; 99285; 36415; 93005; 97166; 82747; 80053; 80048; 84443; 82607; 82140; 83735; 85025 ×2; 85610; 85730; 81001; 80306; 71045; 70450; G0378 ×4; G0480; S4990; J2310; J2405; J2270; 80320

== ENCOUNTER 2020-12-03 10:11 | Day surgery (SDC) | payer MEDICARE, OTHER ==
[2020-12-02 09:51] VITALS: BMI 27.3
[~2020-12-03 10:11] MED LIST changes: -PROPOFOL 10 MG/ML 20 ML VIAL IV ONE
[2020-12-03] MEDS ORDERED: LIDOCAINE 1% (10MG/ML) FOR IV START INTRADERMA ONE (11:05)
[2020-12-03] MEDS ORDERED: PROPOFOL 10 MG/ML 20 ML VIAL IV ONE (12:06)
[2020-12-03] MEDS ORDERED: LIDOCAINE 1% INJ 10MG/ML (20 ML MDV) ONE (12:06)
--- NOTE | 2020-12-03 12:44 | P.PCN ---
Date of Procedure: 12/03/20 Description of Procedure: BRIEF HISTORY: Patient is a 55-year-old female presenting for outpatient colonoscopy for evaluation of altered bowel function. Previously attempted colonoscopy aborted secondary to poor prep. Patient previously had EGD for evaluation of abdominal pain. PROCEDURE PERFORMED: Colonoscopy with polypectomy and biopsy. PREOPERATIVE DIAGNOSIS: Change in bowel habits, altered bowel function, abdominal pain. ESTIMATED BLOOD LOSS: Minimal. IV sedation per Anesthesia. PROCEDURE: After informed consent was obtained, the patient, was brought into the endoscopy unit. IV sedation was administered by Anesthesia under continuous monitoring. Digital rectal examination was normal. Initially the Olympus CF-190 flexible video colonoscope was then inserted in the rectum, gradually advanced into the cecum without any difficulty. Careful examination was performed as the scope was gradually being withdrawn. Ileocecal valve and the appendiceal orifice were visualized and appeared normal. Prep was fair with liquid stool throughout the bowels which were suctioned as well as some solid components. Mucosa of the cecum, ascending colon, transverse colon, descending colon, sigmoid colon, and rectum appeared normal. Diminutive 2 mm ascending colon polyp removed with cold forcep polypectomy. Random biopsies taken of the right and left colon. Retroflexion was performed in the rectum and no lesions were seen. The patient tolerated the procedure well. IMPRESSION: Diminutive ascending colon polyp removed with cold forcep polypectomy. Fair prep. RECOMMENDATIONS: Findings of this examination were discussed with the patient . Okay to resume diet. Okay to resume medications. Follow-up in the GI clinic as scheduled. Recommend repeat colonoscopy in 3 years fair prep, with a 2 day prep at that time.
[2020-12-03 12:45] VITALS: RESP 16
[2020-12-03 13:05] VITALS: BP 133/86; PULSE 82
== END 2020-12-03 13:47 | disposition home or self-care (01) ==
LOC: ORWHC2ENDO 10:11
PROVIDERS: ATTEND Internal Medicine
DX: D12.2 Benign neoplasm of ascending colon (principal); R19.4 Change in bowel habit; F17.200 Nicotine dependence, unspecified, uncomplicated; J44.9 Chronic obstructive pulmonary disease, unspecified; F32.9 Major depressive disorder, single episode, unspecified; Z90.710 Acquired absence of both cervix and uterus; Z98.890 Other specified postprocedural states; Z90.89 Acquired absence of other organs; Z79.899 Other long term (current) drug therapy; Z88.5 Allergy status to narcotic agent
CPT/HCPCS: 88305; 45380; J2001; J2704

== ENCOUNTER 2022-03-13 18:38 | Emergency (ER) | payer MEDICARE, OTHER ==
--- NOTE | 2022-03-13 22:16 | ED ---
Psych HPI - General Chief Complaint: Psychiatric Symptoms Stated Complaint: Depression Time Seen by Provider: 03/13/22 21:42 Source: patient, EMS Mode of arrival: EMS - History of Present Illness Initial Comments: 56-year-old female with past medical history of fibromyalgia, depression presents to emergency department with worsening depression. States that over the past 2 weeks she has become increasingly depressed and can't identify the cause. She has been taking her medications as directed and followed up with [facility] however does not feels of current treatments are helping. Her Prozac was recently increased to 80 mg daily. Admits to suicidal ideations without plan. No homicidal ideations. No illicit drug use. Denies any suicidal attempts. No other alleviating, director hardware modifying factors - Related Data Home Medications Medication Instructions Recorded Confirmed FLUoxetine HCL 80 mg PO DAILY 08/26/20 03/13/22 Montelukast [Singulair] 10 mg PO HS 08/26/20 03/13/22 amLODIPine [Norvasc] 10 mg PO DAILY 10/22/20 03/13/22 Atorvastatin [Lipitor] 20 mg PO HS 03/13/22 03/13/22 DULoxetine HCL [Cymbalta] 60 mg PO DAILY 03/13/22 03/13/22 Omeprazole 40 mg PO DAILY 03/13/22 03/13/22 rOPINIRole HCL [Requip] 1 mg PO HS 03/13/22 03/13/22 traZODone HCL 300 mg PO HS 03/13/22 03/13/22 Previous Rx's Medication Instructions Recorded Gabapentin [Neurontin] 300 mg PO BID #10 cap 11/10/20 Allergies Allergy/AdvReac Type Severity Reaction Status Date / Time hydromorphone [From Dilaudid] Allergy Nausea & Verified 03/13/22 22:39 Vomiting Review of Systems ROS Statement: Those systems with pertinent positive or pertinent negative responses have been documented in the HPI. ROS Other: All systems not noted in ROS Statement are negative. Past Medical History Past Medical History: COPD, Fibromyalgia, Hypertension, Osteoarthritis (OA) Additional Past Medical History / Comment(s): degenerative disc disease, pancr eas pain,kidney History of Any Multi-Drug Resistant Organisms: None Reported Past Surgical History: Appendectomy, Hernia Repair, Hysterectomy Additional Past Surgical History / Comment(s): total hysterectomy, umbilical hernia repair, pts states "2 perforated vagina" Past Anesthesia/Blood Transfusion Reactions: No Reported Reaction Past Psychological History: Depression Smoking Status: Current every day smoker Past Alcohol Use History: None Reported Past Drug Use History: None Reported - Past Family History Mother Family Medical History: Cancer Additional Family Medical History / Comment(s): cervical cancer Father Family Medical History: No Reported History Additional Family Medical History / Comment(s): "he was killed" General Exam Limitations: no limitations General appearance: alert, in no apparent distress Head exam: Present: atraumatic, normocephalic, normal inspection Eye exam: Present: normal appearance, PERRL, EOMI. Absent: scleral icterus, conjunctival injection, periorbital swelling ENT exam: Present: normal exam, mucous membranes moist Neck exam: Present: normal inspection. Absent: tenderness, meningismus, lymphadenopathy Respiratory exam: Present: normal lung sounds bilaterally. Absent: respiratory distress, wheezes, rales, rhonchi, stridor Cardiovascular Exam: Present: regular rate, normal rhythm, normal heart sounds. Absent: systolic murmur, diastolic murmur, rubs, gallop, clicks GI/Abdominal exam: Present: soft, normal bowel sounds. Absent: distended, tenderness, guarding, rebound, rigid Extremities exam: Present: normal inspection, full ROM, normal capillary refill. Absent: tenderness, pedal edema, joint swelling, calf tenderness Back exam: Present: normal inspection Neurological exam: Present: alert, oriented X3, CN II-XII intact Psychiatric exam: Present: depressed Skin exam: Present: warm, dry, intact, normal color. Absent: rash Course Vital Signs 03/13/22 03/14/22 03/14/22 18:40 03:00 05:00 Temperature 98.6 F 98 F Pulse Rate 93 76 88 Respiratory 18 17 17 Rate Blood Pressure 145/93 124/52 120/75 O2 Sat by Pulse 98 97 Oximetry Medical Decision Making - Medical Decision Making Upon arrival patient placed in room 13. History and physical exam is performed. Patient does provide a urine sample. She is ready for EPS evaluation. We are currently awaiting the recommendations - Lab Data Result diagrams: 03/14/22 01:40 03/14/22 01:40 Lab Results 03/13/22 03/14/22 03/14/22 Range/Units 22:50 01:40 01:40 WBC 6.8 (3.8-10.6) k/uL RBC 4.05 (3.80-5.40) m/uL Hgb 12.5 (11.4-16.0) gm/dL Hct 38.0 (34.0-46.0) % MCV 93.8 (80.0-100.0) fL MCH 30.8 (25.0-35.0) pg MCHC 32.9 (31.0-37.0) g/dL RDW 13.5 (11.5-15.5) % Plt Count 205 (150-450) k/uL MPV 7.7 Neutrophils % 49 % Lymphocytes % 42 % Monocytes % 5 % Eosinophils % 2 % Basophils % 1 % Neutrophils # 3.3 (1.3-7.7) k/uL Lymphocytes # 2.9 (1.0-4.8) k/uL Monocytes # 0.3 (0-1.0) k/uL Eosinophils # 0.1 (0-0.7) k/uL Basophils # 0.1 (0-0.2) k/uL Sodium 138 (137-145) mmol/L Potassium 4.1 (3.5-5.1) mmol/L Chloride 108 H (98-107) mmol/L Carbon Dioxide 25 (22-30) mmol/L Anion Gap 5 mmol/L BUN 12 (7-17) mg/dL Creatinine 0.92 (0.52-1.04) mg/dL Est GFR (CKD-EPI)AfAm 81 (>60 ml/min/1.73 sqM) Est GFR (CKD-EPI)NonAf 70 (>60 ml/min/1.73 sqM) Glucose 124 H (74-99) mg/dL Calcium 9.1 (8.4-10.2) mg/dL Total Bilirubin 0.2 (0.2-1.3) mg/dL AST 19 (14-36) U/L ALT 11 (4-34) U/L Alkaline Phosphatase 87 (38-126) U/L Total Protein 6.6 (6.3-8.2) g/dL Albumin 4.0 (3.5-5.0) g/dL Urine Color Yellow Urine Appearance Turbid H (Clear) Urine pH 7.0 (5.0-8.0) Ur Specific [place] 1.017 (1.001-1.035) Urine Protein Trace H (Negative) Urine Glucose (UA) Negative (Negative) Urine Ketones Negative (Negative) Urine Blood Negative (Negative) Urine Nitrite Negative (Negative) Urine Bilirubin Negative (Negative) Urine Urobilinogen <2.0 (<2.0) mg/dL Ur Leukocyte Esterase Negative (Negative) Urine RBC 1 (0-5) /hpf Ur Squamous Epith Cells 5 H (0-4) /hpf Amorphous Sediment Occasional H (None) /hpf Urine Bacteria Occasional H (None) /hpf Urine Mucus Occasional H (None) /hpf Urine Opiates Screen Not Detected (NotDetected) Ur Oxycodone Screen Not Detected (NotDetected) Urine Methadone Screen Not Detected (NotDetected) Ur Propoxyphene Screen Not Detected (NotDetected) Ur Barbiturates Screen Not Detected (NotDetected) U Tricyclic Antidepress Not Detected (NotDetected) Ur Phencyclidine Scrn Not Detected (NotDetected) Ur Amphetamines Screen Not Detected (NotDetected) U Methamphetamines Scrn Not Detected (NotDetected) U Benzodiazepines Scrn Detected H (NotDetected) Urine Cocaine Screen Not Detected (NotDetected) U Marijuana (THC) Screen Not Detected (NotDetected) Coronavirus (PCR) (Not Detectd) 03/14/22 Range/Units 02:00 WBC (3.8-10.6) k/uL RBC (3.80-5.40) m/uL Hgb (11.4-16.0) gm/dL Hct (34.0-46.0) % MCV (80.0-100.0) fL MCH (25.0-35.0) pg MCHC (31.0-37.0) g/dL RDW (11.5-15.5) % Plt Count (150-450) k/uL MPV Neutrophils % % Lymphocytes % % Monocytes % % Eosinophils % % Basophils % % Neutrophils # (1.3-7.7) k/uL Lymphocytes # (1.0-4.8) k/uL Monocytes # (0-1.0) k/uL Eosinophils # (0-0.7) k/uL Basophils # (0-0.2) k/uL Sodium (137-145) mmol/L Potassium (3.5-5.1) mmol/L Chloride (98-107) mmol/L Carbon Dioxide (22-30) mmol/L Anion Gap mmol/L BUN (7-17) mg/dL Creatinine (0.52-1.04) mg/dL Est GFR (CKD-EPI)AfAm (>60 ml/min/1.73 sqM) Est GFR (CKD-EPI)NonAf (>60 ml/min/1.73 sqM) Glucose (74-99) mg/dL Calcium (8.4-10.2) mg/dL Total Bilirubin (0.2-1.3) mg/dL AST (14-36) U/L ALT (4-34) U/L Alkaline Phosphatase (38-126) U/L Total Protein (6.3-8.2) g/dL Albumin (3.5-5.0) g/dL Urine Color Urine Appearance (Clear) Urine pH (5.0-8.0) Ur Specific [place] (1.001-1.035) Urine Protein (Negative) Urine Glucose (UA) (Negative) Urine Ketones (Negative) Urine Blood (Negative) Urine Nitrite (Negative) Urine Bilirubin (Negative) Urine Urobilinogen (<2.0) mg/dL Ur Leukocyte Esterase (Negative) Urine RBC (0-5) /hpf Ur Squamous Epith Cells (0-4) /hpf Amorphous Sediment (None) /hpf Urine Bacteria (None) /hpf Urine Mucus (None) /hpf Urine Opiates Screen (NotDetected) Ur Oxycodone Screen (NotDetected) Urine Methadone Screen (NotDetected) Ur Propoxyphene Screen (NotDetected) Ur Barbiturates Screen (NotDetected) U Tricyclic Antidepress (NotDetected) Ur Phencyclidine Scrn (NotDetected) Ur Amphetamines Screen (NotDetected) U Methamphetamines Scrn (NotDetected) U Benzodiazepines Scrn (NotDetected) Urine Cocaine Screen (NotDetected) U Marijuana (THC) Screen (NotDetected) Coronavirus (PCR) Not Detected (Not Detectd) Disposition Clinical Impression: Depression, Suicidal ideation Disposition: TRANSFER TO PSYCH HOSP/UNIT Condition: Stable Referrals: Paul Munguia [Primary Care Provider] - 1-2 days - Out of Hospital Transfer - Req. Specs Out of Hospital Transfer - Requested Specifics: Psychiatric Non-ICU
[2022-03-13 23:15] LABS: Amphetamine Screen,Urine Not Detected (NotDetected); Barbiturate Screen,Urine Not Detected (NotDetected); Benzodiazepines Screen,Urine Detected (NotDetected); Cocaine Screen,Urine Not Detected (NotDetected); Methadone Screen, Urine Not Detected (NotDetected); Opiate Screen,Urine Not Detected (NotDetected); Oxycodone Screen, Urine Not Detected (NotDetected); Phencyclidine Screen,Urine Not Detected (NotDetected); Tricyclic Antidepressant,Urine Not Detected (NotDetected); Urn Cannabinoid Scrn Not Detected (NotDetected)
[2022-03-13 23:25] LABS: Amorphous Sediment,Urine Occasional /hpf; Appearance,Urine Turbid (Clear); Bacteria,Urine Occasional /hpf; Bilirubin,Urine Negative (Negative); Blood,Urine Negative (Negative); Color,Urine Yellow; Glucose,Urine (UA) Negative (Negative); Ketones,Urine Negative (Negative); Leukocyte Esterase,Urine Negative (Negative); Mucus,Urine Occasional /hpf; Nitrite,Urine Negative (Negative); Protein,Urine Trace (Negative); RBC,Urine 1 /hpf (0-5); Specific Gravity,Urine 1.017 (1.001-1.035); Squamous Epithelial Cell,Urine 5 /hpf (0-4); Urobilinogen,Urine <2.0 mg/dL (<2.0)
[2022-03-14 01:57] LABS: Basophils # (A) 0.1 k/uL (0-0.2); Basophils % (A) 1 %; Eosinophils # (A) 0.1 k/uL (0-0.7); Eosinophils % (A) 2 %; HGB 12.5 gm/dL (11.4-16.0); Lymphocytes # (A) 2.9 k/uL (1.0-4.8); Lymphocytes % (A) 42 %; MCH 30.8 pg (25.0-35.0); MCHC 32.9 g/dL (31.0-37.0); MCV 93.8 fL (80.0-100.0); Mean Platelet Volume 7.7; Monocytes # (A) 0.3 k/uL (0-1.0); Monocytes % (A) 5 %; Neutrophils # (A) 3.3 k/uL (1.3-7.7); Neutrophils % (A) 49 %; Platelet Count 205 k/uL (150-450); RBC 4.05 m/uL (3.80-5.40); RDW 13.5 % (11.5-15.5); WBC 6.8 k/uL (3.8-10.6)
[2022-03-14 03:52] VITALS: RESP 17
[2022-03-14 04:08] LABS: Calcium 9.1 mg/dL (8.4-10.2); Potassium 4.1 mmol/L (3.5-5.1); Total Bilirubin 0.2 mg/dL (0.2-1.3); Total Protein 6.6 g/dL (6.3-8.2)
[2022-03-14 05:06] VITALS: BP 120/75; PULSE 88; TEMP 98
== END 2022-03-14 07:17 ==
LOC: EC 18:38
DX: F32.A Depression, unspecified (principal); R45.851 Suicidal ideations; Z20.822 Contact with and (suspected) exposure to COVID-19
CPT/HCPCS: 36415; 80053; 80306; 81001; 82075; 85025; 87635; 99285

== ENCOUNTER → 2023-10-07 | Outpatient (CLI) | payer MEDICARE, OTHER ==
--- NOTE | 2023-10-08 09:11 | PE ---
EXAMINATION TYPE: PET CT fusion skull to thigh DATE OF EXAM: 10/07/2023 COMPARISON: No pertinent CT. Most recent chest x-ray 11/07/2020 Prior PET/CT: None HISTORY: Solitary pulmonary nodule TECHNIQUE: Following the intravenous administration of 11.65 mCi of F-18 FDG, whole body images are performed from the skull base to the midthigh. Images are reviewed on the computer in the coronal, a xial, and sagittal planes. Reconstructed rotating images are created on independent workstation and reviewed on the computer. A localization and attenuation correction CT is performed in conjunction with the PET scan. DLP: 373.81 mGycm SCAN: Initial Blood glucose: 85 mg/dL Average Mediastinum SUV: Average Liver SUV: FINDINGS: NECK: No abnormal uptake. There is some symmetrical uptake within salivary glands. THORAX: There is a focus of radiotracer at the right apex with an SUV of 5.27 suspicious for neoplast ic process. Image 72. Abnormal uptake is within the posterior right midlung nodule, image 103, SUV 8.65. There is a posterior subcutaneous nodule, image 99, SUV 6.07 suspicious for metastasis. There is intense uptake within a right hilar lymph node with an SUV of 10.91, image 92. ABDOMEN: No abnormal uptake PELVIS: No abnormal uptake OSSEOUS STRUCTURES: No abnormal uptake LOCALIZATION CT: No suspicious changes. Lung nodules identified by PET correlate with localization CT . COMPARISON: None IMPRESSION: 1. Abnormal uptake within right upper and mid posterior lung fang as well as right hilar region. An additional subcutaneous uptake is within the posterior left thorax region. Findings are suspicious f or primary or metastatic neoplasm.
== END | disposition home or self-care (01) ==
LOC: RADPETMAIN 14:47
PROVIDERS: ATTEND Family Medicine
DX: R91.1 Solitary pulmonary nodule (principal); R93.7 Abnormal findings on diagnostic imaging of other parts of musculoskeletal system
CPT/HCPCS: 78815; A9552

== ENCOUNTER → 2023-10-27 | Outpatient (CLI) | payer MEDICARE, OTHER ==
--- NOTE | 2023-10-28 10:53 | MR ---
EXAMINATION TYPE: MR brain wo/w con DATE OF EXAM: 10/27/2023 COMPARISON: 11/07/2020 CT brain HISTORY: Lung cancer CONTRAST: Performed utilizing 7.5 mL intravenous Gadobutrol gadolinium contrast. TECHNIQUE: Multiplanar, multiecho imaging on a 3.0 Slime magnet is performed through the brain. Stud y is performed within 24 hours of arrival to the hospital. The craniovertebral junction is normal. The pituitary is normal. Diffusion-weighted imaging is performed. No abnormal hyperintensity is present to suggest an acute i ntracranial infarct or acute ischemic change. There is hypodensity extending through the white matter of the left trilobar region. Additional hypod ensities in the subcortical white matter right parietal lobe. Following contrast administration ring- enhancing lesions are evident measuring 1.0 cm on the left and 1.0 cm on the right compatible with me tastatic disease. There is a 0.6 cm ring-enhancing lesion in the inferior left occipital lobe compati ble with an additional metastatic lesion. There is a 0.4 cm ring-enhancing lesion within the more an terior left temporal lobe. Series 801 image 63 There are multiple scattered bilateral deep white matter hyperintensities on T2-weighted sequences. No enhancement is evident. Ventricles and sulci are appropriate for the patient age. IMPRESSION: 1. 4 ring-enhancing lesions including right parietal, left watershed, left temporal, inferior left oc cipital lobes suspicious for metastatic disease. 2. Multiple scattered white matter changes in the periventricular white matter likely on the basis of chronic white matter ischemic changes A Yellow level critical message alert has been initiated for Sami~[id number] Fields Jayce Yusef via the [employer] Critical Results System on 10/28/2023 10:50 AM. This message alert has been sent t o Sami~[id number] Fields Jayce Yusfe via the preferences provided by the clinician for the receipt of [facility] Critical Findings. Message ID [id number].
== END | disposition home or self-care (01) ==
LOC: RADMRIMAIN 21:15
PROVIDERS: ATTEND Internal Medicine Hematology & Oncology
DX: C34.81 Malignant neoplasm of overlapping sites of right bronchus and lung (principal); G93.9 Disorder of brain, unspecified; R90.82 White matter disease, unspecified
CPT/HCPCS: 70553; A9585

== ENCOUNTER → 2023-10-28 | Outpatient (CLI) | payer MEDICARE, OTHER ==
--- NOTE | 2023-10-28 15:09 | US ---
EXAMINATION TYPE: US mass soft tissue chest/back DATE OF EXAM: 10/28/2023 COMPARISON: PET CT 10/07/2023 CLINICAL INDICATION: Female, 58 years old with history of C34.81 LUNG CANCER; Superficial "Hot" lumps seen on PET CT; Localization for biopsy. TECHNIQUE: Targeted ultrasound to the patient's palpable areas along the posterior back. FINDINGS: Left upper back mass - palpable - ?Correlates with PET CT AOC; Hypoechoic and avascular = 1.4 x 1.0 x 1.3 cm located within the subcutaneous adipose layer Right lower back mass - palpable - incidental; isoechoic with adjacent vascularity = 0.6 x 0.5 x 0.6 cm, possible second lesion versus small subcutaneous hematoma. IMPRESSION: The palpable area along the left side of the back measures 1.4 cm and likely corresponds to the abnor mal PET CT finding. Consider tissue sampling here. A second palpable area on the right measuring 6 mm is indeterminate. They can be reassessed at follow -up.
== END | disposition home or self-care (01) ==
LOC: RADUSWWP 12:26
PROVIDERS: ATTEND Internal Medicine Hematology & Oncology
DX: C34.81 Malignant neoplasm of overlapping sites of right bronchus and lung (principal); J98.4 Other disorders of lung; J44.9 Chronic obstructive pulmonary disease, unspecified; E78.5 Hyperlipidemia, unspecified; I10 Essential (primary) hypertension; M12.9 Arthropathy, unspecified

== ENCOUNTER → 2023-11-04 | Day surgery (SDC) | payer MEDICARE, OTHER ==
[2023-10-28 15:03] VITALS: BMI 25.5
[~2023-11-04] MED LIST changes: +ALBUTEROL HFA INHALER INHALATION ONE; +DEXAMETHASONE SOD PHOSPHATE 4 MG/ML 1 ML VIAL IVP ONE; +GLYCOPYRROLATE 0.2 MG/ML 2 ML VIAL ONE; +LACTATED RINGERS 1,000 ML IV ONE; +LIDOCAINE 1% INJ 10MG/ML (20 ML MDV) ONE; +MIDAZOLAM 2 MG/2 ML VIAL ONE; +NEOSTIGMINE 1 MG/ML 10 ML VIAL ONE; +ONDANSETRON 4 MG/2 ML VIAL IVP ONE; +ONDANSETRON 4 MG/2 ML VIAL ONE; +PROPOFOL 10 MG/ML 20 ML VIAL IV ONE; +ROCURONIUM 10 MG/ML (5 ML VIAL) IV ONE; +SUCCINYLCHOLINE CHLORIDE 200 MG/10 ML VIAL IV ONE; +fentaNYL (PF) 50 MCG/ML 2 ML AMP ONE
--- NOTE | 2023-11-04 14:12 | CT ---
EXAMINATION TYPE: CT chest wo con DATE OF EXAM: 11/04/2023 COMPARISON: PET/CT October 07, 2023 HISTORY: pre bronchoscopy CT DLP: 499 mGycm. Automated Exposure Control for Dose Reduction was Utilized. TECHNIQUE: CT scan of the thorax is performed without IV contrast. FINDINGS: Exam is for bronchoscopy planning and not for diagnostic purposes.. Focal mild to moderate right apic al pleural/parenchymal scarring is redemonstrated. Inferiorly there is persistent suspicious 7 mm rig ht upper lung pulmonary nodule axial image 62. There is persistent larger suspicious approximately 1. 7 cm right lower lobe nodule axial image 190 series 4. Abnormal hypermetabolic right hilar lymph node less well seen on noncontrast CT. Scoliotic curvature in the upper thoracic spine is incidentally no svetlana. IMPRESSION: As above.
--- NOTE | 2023-11-04 16:06 | P.PCN ---
Date of Procedure: 11/04/23 Operative Findings: Preoperative Diagnosis: Right lower lobe mass Right upper lobe pulmonary nodule Mediastinal adenopathy Postoperative Diagnosis: Right lower lobe mass Right upper lobe pulmonary nodule Mediastinal adenopathy Procedure(s) Performed: Flexible bronchoscopy Robotic-assisted bronchoscopy and addition to radial ultrasound evaluation of the right lower lobe mass and right upper lobe pulmoanry nodule Robotic-assisted transbronchial needle aspirate, transbronchial biopsies, transbronchial brushing of the Right lower lobe mass in addition to a bronchioloalveolar lavage Robotic-assisted transbronchial needle aspirate, transbronchial biopsies, transbronchial brushing of the Right upper lobe nodule in addition to a bronchioloalveolar lavage Endobronchial ultrasound for mediastinal lymph node evaluation and TBNA of the right hilar lymph node (PET avid) Anesthesia: THIERRYA Surgeon: Sherron Bal Estimated Blood Loss (ml): 0 Pathology: other Condition: stable Disposition: same day Operative Findings: A physical exam was performed. Informed consent was obtained from the patient after explaining all the risks (pneumothorax, life threatening bleeding, infection and adverse effects due to medications), benefits and alternatives to the procedure which the patient appeared to understand and so stated. The patient was connected to the monitoring devices. General anesthesia was induced and the patient was intubated by anesthesia. A final timeout was performed and the procedure confirmed by the attending staff bronchoscopist. The bronchoscope was inserted and the airway examined. The flexible bronchoscope was removed and the robotic bronchoscope was inserted. Registration was completed. I next guided the robotic bronchoscope using the navigation system into the right lower lobe superior segment. Once in proper position, the bronchoscope was frozen. The radial EBUS probe was placed through the bronchoscope and confirmed abnormal u/s images vs normal lung. A needle was placed through the working channel and under fluoroscopic guidance, we sampled the area thought to have the mass twice. We then used a cloud biopsy pattern with ultrasound confirmation for 2 additional passes with the needle. U/S evaluation was then used to reconfirm location. Forceps were next introduced through working channel and extended the appropriate distance and 3 transbronchial biopsies were performed using fluoroscopic guidance. The u/s probe was then reinserted to confirm location. When confirmed this process was repeated for a total of 8-10 transbronchial biopsies. After reassessment with EBUS, a brush was placed through the extendable working channel for 1 pass with fluoroscopic guidance. U/S evaluation was then used to confirm location. 40ml of saline was then instilled into the area of the lesion. The robotic bronchoscope was removed and the airway inspected with a flexible bronchoscope and 10 ml of effluent from the BAL was collected. The aspirate was bloody and ultimately declotted and based on that, the sample was discarded. I next guided the robotic bronchoscope using the navigation system into the right upper lobe superior segment. Once in proper position, the bronchoscope was frozen. The radial EBUS probe was placed through the bronchoscope and confirmed abnormal u/s images vs normal lung. A needle was placed through the working channel and under fluoroscopic guidance, we sampled the area thought to have the mass twice. We then used a cloud biopsy pattern with ultrasound confirmation for 2 additional passes with the needle. U/S evaluation was then used to reconfirm location. Forceps were next introduced through working channel and extended the appropriate distance and 3 transbronchial biopsies were performed using fluoroscopic guidance. The u/s probe was then reinserted to confirm location. When confirmed this process was repeated for a total of 8-10 transbronchial biopsies. After reassessment with EBUS, a brush was placed through the extendable working channel for 1 pass with fluoroscopic guidance. U/S evaluation was then used to confirm location. 40ml of saline was then instilled into the area of the lesion. The robotic bronchoscope was removed and the airway inspected with a flexible bronchoscope and 15 ml of effluent from the BAL was collected. The aspirate was bloody and ultimately declotted and based on that, the sample was discarded. Flex. bronchoscope was inserted and regular suctioning was done. At the completion of the procedure, no residual secretions or bloody material within the airway. The bronchoscope was removed. The patient was extubated. Endobronchial ultrasound was done with mediastinal lymph node evaluation. Complete evaluation of the various mediastinal stations was done using endobronchial ultrasound. And right hilar lymph node was identified. This was a PET scan avid. This was measuring approximately 12 mm in size. Using a 22- gauge vizishot needle, transbronchial needle aspirate of the mediastinal lymph node/right hilar lymph node was done. A total of 4 passes were taken. No complications. No bleeding. The endobronchial ultrasound was removed. The flexible scope was inserted and therapeutic airway suctioning was done in adolescence effusion was suctioned out. No active bleeding at the completion of the procedure. The flexible bronchoscope was removed. The patient was extubated and transferred to recovery. FINDINGS: 1.The airways appeared normal 2 Successful navigation, ultrasonographic identification, and biopsies of Right lower lobe mass and right lower lobe nodule and TBNA of the right hilar LN 3.The the radial ultrasound view was (Concentric/Eccentric)}.
--- NOTE | 2023-11-04 16:13 | FL ---
EXAMINATION TYPE: FL bronchoscopy Intraoperative/procedural fluoroscopic services were provided. Tota l fluoroscopy time is 85 seconds with a total of 2 submitted images to PACS. Please see the operative /procedural note for further details. DAP: [id number] mGym2
[2023-11-04 16:31] VITALS: TEMP 98
[2023-11-04 17:14] VITALS: BP 119/80; PULSE 82; RESP 18
--- NOTE | 2023-11-04 19:53 | XR ---
EXAMINATION TYPE: XR chest 1V DATE OF EXAM: 11/04/2023 4:34 PM CLINICAL INDICATION:Female, 58 years old with history of post bx; COMPARISON: Chest radiographs from 11/07/2020. TECHNIQUE: XR chest 1V Frontal view of the chest. FINDINGS: Lungs/Pleura: There is no evidence of pleural effusion, focal consolidation, or pneumothorax. Pulmonary vascularity: Unremarkable. Heart/mediastinum: Cardiomediastinal silhouette is unremarkable. Musculoskeletal: No acute osseous pathology. Other findings: None IMPRESSION: No acute cardiopulmonary disease/process.
== END ==
LOC: ORWHC2ENDO 12:45
PROVIDERS: ATTEND Internal Medicine Critical Care Medicine
DX: C34.31 Malignant neoplasm of lower lobe, right bronchus or lung (principal); R91.1 Solitary pulmonary nodule; R59.0 Localized enlarged lymph nodes; I10 Essential (primary) hypertension; E78.5 Hyperlipidemia, unspecified; J44.9 Chronic obstructive pulmonary disease, unspecified; M79.7 Fibromyalgia; Z79.82 Long term (current) use of aspirin; Z79.51 Long term (current) use of inhaled steroids; Z79.899 Other long term (current) drug therapy
CPT/HCPCS: 88108; 88305; 88342; 88341; 71045; 71250; 31628; 31629; 31633; 31623; 31624; 31652; J2250; J0330; J1100; J2710; J2405; J2001; J3010; J2704; S2900

== ENCOUNTER 2024-01-13 16:59 | Emergency (ER) | payer MEDICARE, OTHER ==
[2024-01-13 17:29] VITALS: RESP 18
--- NOTE | 2024-01-13 17:38 | ED ---
Weakness HPI - General Chief complaint: Weakness Stated complaint: Nausea, vomitting Time Seen by Provider: 01/13/24 17:27 Source: EMS Mode of arrival: EMS Limitations: no limitations - History of Present Illness Initial comments: This 58-year-old female presents with complaint of weakness, headache, nausea which has been present for the last 1 week. She states that she has had some chills but no actual fever. She denies any significant cough but has had occasional shortness of breath. She relates a history of lung and brain cancer. She cannot tell me how long this has been going on for. She has had radiation thus far but no chemotherapy as of yet. She is scheduled to start chemotherapy this next week. She denies any chest or abdominal pain. There is no leg pain or swelling. She has some diffuse myalgias. She does state that she feels somewhat mentally foggy at times. She has had some moderate fatigue as well. She was sent in by her oncologist, Dr. Khoury. No other complaints or modifying factors. She is not on any blood thinner medications. - Related Data Home Medications Medication Instructions Recorded Confirmed FLUoxetine HCL 80 mg PO QAM 08/26/20 11/04/23 Montelukast [Singulair] 10 mg PO QAM 08/26/20 11/04/23 amLODIPine [Norvasc] 10 mg PO QAM 10/22/20 11/04/23 Atorvastatin [Lipitor] 20 mg PO QAM 03/13/22 11/04/23 DULoxetine HCL [Cymbalta] 60 mg PO QAM 03/13/22 11/04/23 Omeprazole 40 mg PO QAM 03/13/22 11/04/23 traZODone HCL 150 mg PO HS 03/13/22 11/04/23 Albuterol Inhaler [Ventolin Hfa 2 puff INHALATION Q4H PRN 10/29/23 11/04/23 Inhaler] Cyanocobalamin (Vitamin B-12) 1,000 mcg PO QAM 10/29/23 11/04/23 [Vitamin B-12] HYDROcodone/APAP 10-325MG [[place] 1 tab PO Q6HR PRN 10/29/23 11/04/23 10-325] Levothyroxine Sodium [Synthroid] 25 mcg PO DAILY 10/29/23 11/04/23 Lurasidone [Latuda] 20 mg PO HS 10/29/23 11/04/23 Multivit with Calcium,Iron,Min 1 each PO QAM 10/29/23 11/04/23 [Women's Multivitamin] [place]-3/Dha/Epa/Fish Oil [Fish Oil 1 each PO QAM 10/29/23 11/04/23 1,000 mg Softgel] Ondansetron [Zofran] 4 mg PO Q8HR PRN 10/29/23 11/04/23 traMADol HCL 50 mg PO Q6H PRN 10/29/23 11/04/23 Previous Rx's Medication Instructions Recorded Gabapentin [Neurontin] 300 mg PO BID #10 cap 11/10/20 Allergies Allergy/AdvReac Type Severity Reaction Status Date / Time No Known Allergies Allergy Verified 01/13/24 17:06 Review of Systems ROS Statement: Those systems with pertinent positive or pertinent negative responses have been documented in the HPI. ROS Other: All systems not noted in ROS Statement are negative. Past Medical History Past Medical History: COPD, Fibromyalgia, Hypertension, Osteoarthritis (OA) Additional Past Medical History / Comment(s): degenerative disc disease, pancreas pain,kidney History of Any Multi-Drug Resistant Organisms: None Reported Past Surgical History: Appendectomy, Hernia Repair, Hysterectomy Additional Past Surgical History / Comment(s): total hysterectomy, umbilical hernia repair, pts states "2 perforated vagina" Past Anesthesia/Blood Transfusion Reactions: No Reported Reaction Past Psychological History: Depression Smoking Status: Current every day smoker Past Alcohol Use History: None Reported Past Drug Use History: None Reported - Past Family History Mother Family Medical History: Cancer Additional Family Medical History / Comment(s): ovarian cancer Father Family Medical History: No Reported History Additional Family Medical History / Comment(s): "he was killed" General Exam - General Exam Comments Initial Comments: GENERAL: The patient is well nourished and well hydrated. VITAL SIGNS: Heart rate, blood pressure, respiratory rate reviewed as recorded in nurse's notes. EYES: Pupils are round and reactive. Extraocular movements are intact. No conjunctival / lid redness or swelling. ENT: No external evidence of injury, swelling, or ecchymosis. Airway is patent. Throat is clear. NECK: Nontender. No swelling or evidence of injury. No subcutaneous emphysema. Trachea is midline. No thyroid mass. HEART: Regular rate and rhythm. Good peripheral pulses. LUNGS/CHEST: Breath sounds clear and equal bilaterally. No rales, rhonchi, or wheezes. No ecchymosis, subcutaneous emphysema, or tenderness. ABDOMEN: Abdomen soft without tenderness. No palpable masses or organomegaly. No peritoneal signs. No abdominal wall swelling or ecchymosis. EXTREMITIES: No extremity tenderness. Normal muscle tone and function. No thoracolumbar tenderness. NEUROLOGIC: Sensation is grossly intact. Cranial nerve exam reveals face is symmetrical, tongue is midline, speech is clear. SKIN: No abrasions or ecchymosis is noted. No induration or masses noted. PSYCHIATRIC: Alert and oriented. Appropriate behavior and judgment. Limitations: no limitations Course Vital Signs 01/13/24 17:04 Temperature 99.3 F Pulse Rate 91 Respiratory 18 Rate Blood Pressure 135/81 O2 Sat by Pulse 98 Oximetry Medical Decision Making - Medical Decision Making The patient was seen and examined. An IV is established. She received Zofran 4 mg IV as well as some morphine IV. She is hydrated. She states that she is feeling significantly improved on recheck and is hungry and would like some food. The chest x-ray was reviewed and does show some possible disease progression of pulmonary masses per my interpretation and radiology interpretation. Radiologist later does call back and states that there is significant intracranial edema noted likely from the brain masses which appears worse as compared to previous per my interpretation and radiologist interpretation.. He also calls and notes a slight intracranial bleed which is suspected to be related to the malignancy. EKG is done and shows a normal sinus rhythm at a rate of 87. There is no acute ST or T wave changes noted per my interpretation. The intervals are all normal. The laboratory came back showing a slight leukocytosis which is likely related to the Decadron which she is taking. She also has a slight anemia. Overall, with the intracranial bleed, it is felt as though she would need to be transferred to a larger hospital that has neurosurgical coverage. She is agreeable to transfer to [facility] where her oncologist also apparently works out of. Case is discussed with ER physician at [facility]. Appropriate transfer paperwork is completed. Approximately 30 minutes of critical care time is utilized in the treatment of the patient. Was pt. sent in by a medical professional or institution (, PA, [employer]ER, urgent care, hospital, or usp...) When possible be specific @ -Patient was sent in by her oncologist. Did you speak to anyone other than the patient for history (EMS, parent, family, police, friend...)? What history was obtained from this source @ -Case also was discussed with patient's daughter who gives some additional history. Did you review nursing and triage notes (agree or disagree)? Why? @ -[I reviewed and agree with nursing and triage notes] Were old charts reviewed (outside hosp., previous admission, EMS record, old EKG, old radiological studies, urgent care reports/EKG's, usp records)? Report findings @ -Old records were reviewed but are somewhat limited. Additional past medical history is obtained. Differential Diagnosis (chest pain, altered mental status, abdominal pain women, abdominal pain men, vaginal bleeding, weakness, fever, dyspnea, syncope, headache, dizziness, GI bleed, back pain, seizure, CVA, palpatations, mental health, musculoskeletal)? @ -Intracranial bleed, headache, nausea and vomiting, fatigue, generalized weakness, myalgia, lung cancer, brain metastases. EKG interpreted by me (3pts min.). @ -[As above] X-rays interpreted by me (1pt min.). @ -As above CT interpreted by me (1pt min.). @ -As above U/S interpreted by me (1pt. min.). @ -[None done] What testing was considered but not performed or refused? (CT, X-rays, U/S, labs)? Why? @ -[None] What meds were considered but not given or refused? Why? @ -[None] Did you discuss the management of the patient with other professionals (professionals i.e. , PA, [employer], lab, RT, psych nurse, social sciences professor, batch dumper, teacher, classification officer, case supervisor)? Give summary @ -Case is discussed with the ER physician at [facility] who is agreeable to transfer. Was smoking cessation discussed for >3mins.? @ -[No] Was critical care preformed (if so, how long)? @ -30 minutes of critical care was utilized in the treatment of the patient. Were there social determinants of health that impacted care today? How? (Homelessness, low income, unemployed, alcoholism, drug addiction, transportatio n, low edu. Level, literacy, decrease access to med. care, long term, rehab)? @ -[No] Was there de-escalation of care discussed even if they declined (Discuss DNR or withdrawal of care, Hospice)? DNR status @ -[No] What co-morbidities impacted this encounter? (DM, HTN, Smoking, COPD, CAD, Cancer, CVA, ARF, Chemo, Hep., AIDS, mental health diagnosis, sleep apnea, morbid obesity)? @ -Lung cancer, brain metastases Was patient admitted / discharged? Hospital course, mention meds given and route, prescriptions, significant lab abnormalities, going to OR and other pertinent info. @ -Patient was transferred to [facility] as above. Undiagnosed new problem with uncertain prognosis? @ -Yes Drug Therapy requiring intensive monitoring for toxicity (Heparin, Nitro, Insulin, Cardizem)? @ -[No] Were any procedures done? @ -[No] Diagnosis/symptom? @ -Intracranial bleed, brain metastases, lung cancer, nausea, fatigue, weakness, anemia. Acute, or Chronic, or Acute on Chronic? @ -Acute Uncomplicated (without systemic symptoms) or Complicated (systemic symptoms)? @ -Uncomplicated Side effects of treatment? @ -[No] Exacerbation, Progression, or Severe Exacerbation? @ -[No] Poses a threat to life or bodily function? How? (Chest pain, [place], [place], pneumonia, PE, COPD, DKA, ARF, appy, cholecystitis, CVA, Diverticulitis, Homicidal, Suicidal, threat to staff... and all critical care pts) @ -Yes, and intracranial bleed is potentially life-threatening. - Lab Data Result diagrams: 01/13/24 17:55 01/13/24 17:55 Lab Results 01/13/24 01/13/24 01/13/24 Range/Units 17:55 17:55 17:56 WBC 13.8 H (3.8-10.6) k/uL RBC 3.48 L (3.80-5.40) m/uL Hgb 11.2 L (11.4-16.0) gm/dL Hct 33.2 L (34.0-46.0) % MCV 95.3 (80.0-100.0) fL MCH 32.1 (25.0-35.0) pg MCHC 33.7 (31.0-37.0) g/dL RDW 14.3 (11.5-15.5) % Plt Count 317 (150-450) k/uL MPV 7.6 Neutrophils % 85 % Lymphocytes % 8 % Monocytes % 6 % Eosinophils % 1 % Basophils % 0 % Neutrophils # 11.6 H (1.3-7.7) k/uL Lymphocytes # 1.0 (1.0-4.8) k/uL Monocytes # 0.8 (0-1.0) k/uL Eosinophils # 0.1 (0-0.7) k/uL Basophils # 0.0 (0-0.2) k/uL Sodium 140 (137-145) mmol/L Potassium 4.2 (3.5-5.1) mmol/L Chloride 110 H (98-107) mmol/L Carbon Dioxide 22 (22-30) mmol/L Anion Gap 8 mmol/L BUN 14 (7-17) mg/dL Creatinine 0.49 L (0.52-1.04) mg/dL Est GFR (CKD-EPI)AfAm >90 (>60 ml/min/1.73 sqM) Est GFR (CKD-EPI)NonAf >90 (>60 ml/min/1.73 sqM) Glucose 90 (74-99) mg/dL Calcium 8.6 (8.4-10.2) mg/dL Phosphorus 3.6 (2.5-4.5) mg/dL Magnesium 2.0 (1.6-2.3) mg/dL Total Bilirubin 0.3 (0.2-1.3) mg/dL AST 32 (14-36) U/L ALT 27 (4-34) U/L Alkaline Phosphatase 110 (38-126) U/L Total Protein 6.1 L (6.3-8.2) g/dL Albumin 3.6 (3.5-5.0) g/dL TSH 0.140 L (0.465-4.680) mIU/L Influenza Type A (PCR) Not Detected (Not Detectd) Influenza Type B (PCR) Not Detected (Not Detectd) RSV (PCR) Not Detected (Not Detectd) SARS-CoV-2 (PCR) Not Detected (Not Detectd) Disposition Clinical Impression: Nausea, Headache, Weakness, Lung cancer, Metastasis to brain, Brain edema, Anemia, Intracranial bleed Disposition: OTHER INSTITUTION NOT DEFINED Condition: Fair Is patient prescribed a controlled substance at d/c from ED?: No Referrals: Yadira Peralta MD [Primary Care Provider] - 1-2 days Time of Disposition: 19:53 Decision Date: 01/13/24 Decision Time: 19:53 - Out of Hospital Transfer - Req. Specs Out of Hospital Transfer - Requested Specifics: Other Emergency Center ([facility])
[2024-01-13] MEDS: ACETAMINOPHEN TAB 500 MG TAB PO STA (17:48)
[2024-01-13] MEDS: SODIUM CHLORIDE 0.9% 1,000 ML IV STA (17:48)
[2024-01-13] MEDS: MORPHINE SULFATE 4 MG/ML SYRINGE IV STA (17:48)
[2024-01-13] MEDS: ONDANSETRON 4 MG/2 ML VIAL IVP STA (17:48)
[2024-01-13] MEDS: SODIUM CHLORIDE 0.9% 500 ML 500 ML IV STA (17:48)
[2024-01-13 18:10] LABS: Basophils % (A) 0 %; Eosinophils # (A) 0.1 k/uL (0-0.7); Eosinophils % (A) 1 %; HCT 33.2 % (34.0-46.0); HGB 11.2 gm/dL (11.4-16.0); Lymphocytes % (A) 8 %; MCH 32.1 pg (25.0-35.0); MCHC 33.7 g/dL (31.0-37.0); MCV 95.3 fL (80.0-100.0); Mean Platelet Volume 7.6; Monocytes # (A) 0.8 k/uL (0-1.0); Monocytes % (A) 6 %; Neutrophils # (A) 11.6 k/uL (1.3-7.7); Neutrophils % (A) 85 %; Platelet Count 317 k/uL (150-450); RBC 3.48 m/uL (3.80-5.40); RDW 14.3 % (11.5-15.5); WBC 13.8 k/uL (3.8-10.6)
[2024-01-13 19:07] LABS: ALT 27 U/L (4-34); AST 32 U/L (14-36); African American GFR (CKD) >90 (>60 ml/min/1.73 sqM); Albumin 3.6 g/dL (3.5-5.0); Alkaline Phosphatase 110 U/L (38-126); Anion Gap 8 mmol/L; Blood Urea Nitrogen 14 mg/dL (7-17); Calcium 8.6 mg/dL (8.4-10.2); Carbon Dioxide 22 mmol/L (22-30); Chloride 110 mmol/L (98-107); Glucose 90 mg/dL (74-99); Non-African American GFR(CKD) >90 (>60 ml/min/1.73 sqM); Phosphorus 3.6 mg/dL (2.5-4.5); Potassium 4.2 mmol/L (3.5-5.1); Sodium 140 mmol/L (137-145); Total Bilirubin 0.3 mg/dL (0.2-1.3); Total Protein 6.1 g/dL (6.3-8.2)
--- NOTE | 2024-01-13 19:21 | CT ---
EXAMINATION TYPE: CT brain wo con DATE OF EXAM: 01/13/2024 COMPARISON: MRI 10/27/2023 HISTORY: 58-year-old female Weakness. Hx of brain/lung cancer. TECHNIQUE: Examination was done in axial plane without intravenous contrast. Coronal and sagittal r econstructions performed. CT DLP: 1091.4 mGycm Automated exposure control for dose reduction was used. FINDINGS: Redemonstrated vasogenic edema related to known brain metastases, one located posterior right frontal lobe, posterior left temporal lobe, and left occipital lobe. There is extensive new vasogenic edema in the anterior right frontal lobe that results in 5 mm of lef tward midline shift anteriorly. There is a 7 mm hyperdense focus left lateral frontal convexity. No extra-axial fluid collection otherwise seen. No hydrocephalus. No effacement of basal subarachnoid cisterns. Paranasal sinuses show mild mucosal thickening sphenoid sinuses. Mastoid air cells well pneumatized. IMPRESSION: 1. There appears to be a new 7 mm hyperdense focus left lateral frontal cortex. This could represent a new hemorrhagic metastasis, small parenchymal, small focus of subarachnoid hemorrhage. 2. Redemonstrated areas of vasogenic edema relating to known intracranial metastases. However, there is a new large area of vasogenic edema involving the anterior right frontal lobe that results in loca lized 5 mm of leftward midline shift in the frontal region. Findings called to Dr. Cherry in the ER at 7:018 pm.
--- NOTE | 2024-01-13 19:28 | XR ---
EXAMINATION TYPE: XR chest 2V DATE OF EXAM: 01/13/2024 COMPARISON: 11/02/2023 HISTORY: 58-year-old female nausea, vomiting, weakness TECHNIQUE: AP and lateral views FINDINGS: Heart upper limits of normal in size. There is asymmetric right hilar prominence and additional nodul arity right infrahilar region. Both of these areas appear more pronounced from prior. No consolidatio n or pleural effusion. IMPRESSION: Increased right hilar prominence and right infrahilar nodule. If there is an underlying oncologic his tory, disease progression not excluded. Otherwise, no acute process seen.
[2024-01-13] MEDS: DEXAMETHASONE SOD PHOSPHATE 10 MG/ML 1 ML VIAL IV STA (20:19)
[2024-01-13 20:33] LABS: Appearance,Urine Cloudy (Clear); Bacteria,Urine Occasional /hpf; Bilirubin,Urine Negative (Negative); Blood,Urine Negative (Negative); Color,Urine Colorless; Glucose,Urine (UA) Negative (Negative); Ketones,Urine Negative (Negative); Leukocyte Esterase,Urine Negative (Negative); Mucus,Urine Many /hpf; Nitrite,Urine Negative (Negative); PH, Urine 7.5 (5.0-8.0); Protein,Urine Negative (Negative); RBC,Urine 11 /hpf (0-5); Specific Gravity,Urine 1.014 (1.001-1.035); Squamous Epithelial Cell,Urine 16 /hpf (0-4); Urobilinogen,Urine <2.0 mg/dL (<2.0); WBC,Urine 7 /hpf (0-5)
[2024-01-13 20:45] LABS: INR 0.9 (<1.2); Prothrombin Time 10.3 sec (10.0-12.5)
[2024-01-13 21:03] LABS: Partial Thromboplastin Time 20.1 sec (22.0-30.0)
[2024-01-13 21:38] VITALS: BP 137/88; PULSE 83; TEMP 98.3
== END 2024-01-13 21:45 | disposition other institution (70) ==
LOC: EC 16:59
DX: I62.9 Nontraumatic intracranial hemorrhage, unspecified (principal); C79.31 Secondary malignant neoplasm of brain; C34.90 Malignant neoplasm of unspecified part of unspecified bronchus or lung; D64.9 Anemia, unspecified; F17.200 Nicotine dependence, unspecified, uncomplicated
CPT/HCPCS: 99291; 96374; 96375 ×2; 96361 ×4; 36415; 93005; 80053; 83735; 84100; 84443; 85025; 85610; 85730; 81001; 87636; 71046; 70450; J2270; J1100; J2405